=== PATIENT | male | born 1935 | race Asian ===

== ENCOUNTER 2021-07-20 19:08 | Inpatient (IN) | payer MEDICARE, SELFPAY ==
[2021-07-20] VITALS (54 sets, daily range): BP systolic 89–148; BP diastolic 40–79; PULSE 99–189; RESP 17–49; TEMP 36.6–37.8; O2SAT 88–99
--- NOTE | ~2021-07-20 | XR_ITS ---
XR chest 1V portable DATE: 07/25/2021 12:43 INDICATION: Shortness of breath TECHNIQUE: Portable upright AP chest on 07/25/2021 at 1236 hours COMPARISON: 07/20/2021 CT pulmonary scan 07/20/2021 portable AP chest FINDINGS: There is cardiomegaly. Is aortic ectasia and calcification. There are patchy infiltrates in the lower lung zones, left greater than right, increased since 2020. There is minimal if any pleural effusion. No pulmonary vascular congestion or pneumothorax. Diffuse osteopenia. Plate and screws of the lower cervical spine. Degenerative spurring of the thoracic and lumbar spine. IMPRESSION: Bilateral lower lung infiltrates, left greater right, increased since 07/20/2021 Cardiomegaly Reviewed, dictated and finalized at location A. TMETAL PATTERNMAKER IMPRESSION: Bilateral lower lung infiltrates, left greater right, increased sin ce 07/20/2021 Cardiomegaly
--- NOTE | ~2021-07-20 | CT_ITS ---
EXAMINATION: CTA chest PE abdomen pel DATE: 07/20/2021 20:34 INDICATION: Fever and cough. Atrial fibrillation with rapid ventricular rate. TECHNIQUE: Computed tomography angiography (CTA) of the chest was performed with 100 mL Omnipaque-350 intravenous contrast timed to evaluate the pulmonary arteries. Coronal maximum intensity projection 3D-reconstructions were created by the technologist. Computed tomography (CT) of the abdomen and pelv is was performed with intravenous contrast. Automated exposure control and iterative reconstruction t echnique were employed. The dose-length product was 621.90 mGy-cm. COMPARISON: None. FINDINGS: CTA chest: Motion artifact is noted. There are patchy groundglass opacities and centrilobular nodules in all lobes predominantly in the mid and lower lung zones. There is no pleural effusion. Cardiomega ly is noted. There is no pulmonary embolus. There are bridging endplate osteophytes at multiple level s in the spine, consistent with diffuse idiopathic skeletal hyperostosis (DISH). CT abdomen and pelvis: The liver, gallbladder, spleen, pancreas, adrenal glands, and kidneys are norm al. The bladder is decompressed by a Lizama catheter. There is a gastrostomy tube in expected position . There are no dilated loops of bowel. The appendix is not visualized. There is a filter in the infra renal inferior vena cava. There are no pathologically enlarged lymph nodes. There is no free intraper itoneal fluid. There is moderate lumbar spondylosis. IMPRESSION: 1. No pulmonary embolus. Sensitivity is moderately decreased by motion artifact. 2. Patchy groundglass opacities and centrilobular nodules in all lobes predominantly involving the mi d and lower lung zones, consistent with pneumonia. Reviewed, dictated and finalized at location A. IC RELATIONS DIRECTOR IMPRESSION: 1. No pulmonary embolus. Sensitivity is moderately decreased by motion artifact . 2. Patchy groundglass opacities and centrilobular nodules in all lobes predomin antly involving the mid and lower lung zones, consistent with pneumonia.
--- NOTE | ~2021-07-20 | CT_ITS ---
EXAMINATION: CT brain wo con DATE: 07/20/2021 20:34 INDICATION: Confusion. TECHNIQUE: Computed tomography (CT) of the head was performed without intravenous contrast. The mA wa s adjusted according to patient size. Iterative reconstruction technique was employed. The dose-lengt h product was 681.00 mGy-cm. COMPARISON: Head CT 01/03/2005, brain MRI 01/05/2005 FINDINGS: There is diffuse brain volume loss. There is an old infarct in left occipital lobe. There a re scattered areas of low attenuation in the cerebral white matter. There is no intracranial hemorrha ge, acute infarction, or abnormal intracranial mass lesion. Cavum septum pellucidum and vergae are no meño. The orbits are normal. There is mucosal thickening in the paranasal sinuses. There is an old blo wout fracture of medial wall of left orbit. There are old fractures of the anterior munoz of the maxi llary sinuses with reconstruction plates. The mastoid air cells are normal. IMPRESSION: 1. Old infarct in left occipital lobe. 2. Mild nonspecific cerebral white matter disease, which likely represents chronic small vessel ische amanda disease. Reviewed, dictated and finalized at location A. ECTOR SUBASSEMBLIES IMPRESSION: 1. Old infarct in left occipital lobe. 2. Mild nonspecific cerebral white matter disease, which likely represents machine setup operator kashif small vessel ischemic disease.
--- NOTE | ~2021-07-20 | XR_ITS ---
EXAMINATION: XR chest 1V portable DATE: 07/20/2021 19:57 INDICATION: Cough and fever. TECHNIQUE: A single frontal view of the chest was obtained. COMPARISON: Chest 2 views 01/04/2005 FINDINGS: The patient is rotated to his left. A skin fold overlies left chest. There is no pneumonia, pleural effusion, or pneumothorax. The heart size is normal. There are changes of anterior fusion pr ocedure in cervical spine. IMPRESSION: 1. No acute cardiopulmonary disease. Reviewed, dictated and finalized at location A. CATION CARE MANAGER
--- NOTE | ~2021-07-20 | XR_ITS ---
EXAMINATION: XR abdomen/kub 1V DATE: 07/20/2021 19:56 INDICATION: Aspiration. TECHNIQUE: An upright view of the abdomen was obtained. COMPARISON: None. FINDINGS: The pelvis is excluded. There are no dilated loops of bowel. There is a filter in the infer ior vena cava. A gastrostomy tube is seen in expected position. IMPRESSION: 1. Normal bowel gas pattern. Reviewed, dictated and finalized at location A. ATIONS SUPPORT ANALYST
--- NOTE | 2021-07-20 19:18 | ECG_ITS ---
Measurements Intervals [place] Rate: 175 P: [place]: 0 QRS: 103 QRSD: 110 T: -13 QT: 206 QTc: 352 Interpretive Statements ATRIAL FIBRILLATION WITH RAPID VENTRICULAR RESPONSE RIGHT AXIS DEVIATION INCOMPLETE RIGHT BUNDLE BRANCH BLOCK BORDERLINE ST-T WAVE ABNORMALITY- INFERIOR LEADS CANNOT RULE OUT SEPTAL INFARCT, AGE INDETERMINATE ABNORMAL ECG Electronically Signed On 07-21-2021 8:45:30 GATHERING MACHINE SETTER by Bossman Bhatia D.O.
--- NOTE | 2021-07-20 19:31 | PC.NURSE ---
Patient placed on 2L via NC per [facility] Nisha. Patient O2 sat decreased to 87%.
[2021-07-20] MEDS: dilTIAZem HCl INJ 25 MG/5 ML VIAL 10 MG IV PUSH ×2 (19:36→20:46)
[2021-07-20] MEDS: SODIUM CHLORIDE 0.9% IV 1,000 ML 999 ML IV CONT ×2 (19:36→22:37)
[2021-07-20 19:45] LABS: Hematocrit 40.2 % (42.0-52.0); Hemoglobin 12.3 g/dL (14.0-18.0); Mean Corpuscular HGB Conc 30.6 g/dl (32-36); Mean Corpuscular Hemoglobin 27.5 pg (26-34); Mean Corpuscular Volume 89.9 fl (80-100); Platelet Count Result 566 k/mm3 (150-375); Red Blood Count 4.47 M/mm3 (4.6-6.20); Red Cell Distribution Width 18.3 % (11.5-14.5); White Blood Count 27.8 K/mm3 (4.5-10.0)
--- NOTE | 2021-07-20 19:49 | ED.FEVER ---
HPI - Fever General Chief Complaint: Fever Stated Complaint: bedridden,fever, cough, n/v, suctioning, cp Time Seen by Provider: 07/20/21 19:11 Source: family and EMS Mode of arrival: EMS Limitations: clinical condition History of Present Illness HPI Narrative: Patient brought in by EMS with concerns of aspiration. Initial report provided to me by EMS was that patient was at home and had a temp of 100F. Pt exhibited coughing during feeding and family was concerned pt aspirated. They contacted EMS who brought pt here for further evaluation. Shortly after my initial assessment, daughter arrived here in the department and help provide me with majority of history. Apparently patient fell when ambulating in a mall back in November of this year. He landed on his face and sustained several facial fractures and cervical spinal fractures. He was admitted at [facility] had a cervical spinal fusion of C5-6. Postoperatively he developed C. difficile multiple times and also had aspiration pneumonia. Patient was in and out of the hospital multiple times with majority of his admissions at [facility]. 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 At one point he was discharged to a SNF. Pt had tracheostomy placed and G-tube. During most recent admission, there were challenges with placement at time of discharge. Family elected to bring patient home. He has been living at home with his and daughter since last Wednesday. Daughter states that since his arrival back home he has been acting funny . He is fluent in Korean but has been mumbling in Croatian, and both daughter and his have had problems understanding him. Today family was attempting to administer a feeding through his G tube when he began vomiting what appeared to be formula from his tube feeding. Daughter states feedings are ordered to be administer five times per day with volume of 250ml per feeding. He also receives a volume of 125ml of water with his feeding. He currently has a daly. Daughter states pt was admitted at one point with a urinary tract infection that was thought to have been related to Daly catheter. He was switched to a condom cath and then it was determined that he may have some type of obstructive urinary process. He has a known history of atrial fibrillation and is anticoagulated with eliquis. Family has been administering this and metoprolol for rate control through his G tube. Daughter states that pt did have solid bowel movement this morning. Related Data Home Medications Medication Instructions Recorded Confirmed bimatoprost 0.01 % eye drops 1 drop EACH EYE DAILY 08/24/19 08/26/20 niacin 500 mg tablet,extended 500 mg PO QAM 08/24/19 08/26/20 release timolol maleate 0.25 % eye drops 1 drop EACH EYE Q12H 08/24/19 08/26/20 apixaban [Eliquis] mg 07/20/21 duloxetine mg PO 07/20/21 finasteride mg 07/20/21 gabapentin 07/20/21 latanoprost drp 07/20/21 metoprolol tartrate 07/20/21 morphine 07/20/21 trazodone 07/20/21 Allergies Allergy/AdvReac Type Severity Reaction Status Date / Time simvastatin Allergy Mild Itching Verified 07/20/21 19:19 Review of Systems Review of Systems: ROS unobtainable: Yes unobtainable due to mental status PMFSH Past Medical History Medical History (Updated 07/20/21 @ 22:05 by JOAN Radford, ) Aspiration pneumonia Atrial fibrillation Cervical spine fracture CVA (cerebral vascular accident) Neuropathic pain Urinary obstruction Surgical History Surgical History S/P cervical spinal fusion Family History Family History Sibling Patient's brother is in good health Father Family history of liver disease, Onset Age: 52 Patient's father is Mother Family history of liver disease, Onset Age: 67 Patient's mother is decea
[2021-07-20 19:55] LABS: Prothrombin Time 13.2 Seconds (11.1-14.7)
[2021-07-20 19:56] LABS: Partial Thromboplastin Time 33.6 SECONDS (22.3-36.8)
[2021-07-20 20:02] LABS: Band Neutrophils Percent 3 % (0-6); Eosinophils Absolute Manual 0.27 K/mm3 (0.02-0.5); Eosinophils Percent Manual 1 % (0-4); Lymphocytes Absolute Manual 2.78 K/mm3 (1.1-4.5); Monocytes Absolute Manual 1.11 K/mm3 (0.1-0.90); Monocytes Percent Manual 4 % (3-9); Neutrophils Absolute Manual 23.63 K/mm3 (1.3-6.7); Neutrophils Percent Manual 82 % (46-73); Platelet Estimate Increased (Adequate); Total Cells Counted 100
[2021-07-20 20:03] LABS: Stomatocytes 2+ (NORMAL)
[2021-07-20 20:05] LABS: Alanine Aminotransferase 26 U/L (4-50); Albumin Level 4.7 g/dL (3.5-5.1); Alkaline Phosphatase 130 U/L (38-126); Anion Gap 16 mmol/L (8-16); Aspartate Amino Transferase 35 U/L (17-59); Bilirubin,Total 0.5 mg/dL (0.2-1.3); Blood Urea Nitrogen 30 mg/dL (9-20); Calcium 10.4 mg/dL (8.4-10.2); Carbon Dioxide 25 mmol/L (22-30); Chloride 96 mmol/L (98-107); Estimated Glomerular Filt Rate > 60; Glucose 150 mg/dL (65-110); Potassium 5.3 mmol/L (3.4-5.0); Sodium 137 mmol/L (137-145)
[2021-07-20 20:16] LABS: NT Pro B Type Natriuretic Pept 1260 pg/mL (5-100); Troponin I < 0.012 ng/mL (0.000-0.034)
[2021-07-20 20:17] LABS: Lactic Acid Reflex 4.6 mmol/L (0.7-2.1)
--- NOTE | 2021-07-20 20:30 | PC.NURSE ---
Patient in Ct at this time.
--- NOTE | 2021-07-20 21:47 | PM.IMHP ---
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 patient has been in and out of the hospital since January of 2021 has had a protracted postop course complicated by nosocomial infection, respiratory failure, patient is status post tracheostomy now decannulated with tracheostomy been closed up, recurrent C difficile colitis, patient did was just discharged from [place] when home Wednesday family had trouble placing him at a senior living due to the multiple challenges with his health resulting to taking home with them daily have been doing okay but today just prior to coming to the emergency patient was shivering, incoherent, and vomited his G-tube feeding which prompted the family to call EMS and patient was brought to the emergency room. Preliminary workup was significant for lung infiltrates, a lactic acid of 4,6, also was found to have AFib with rapid ventricular response, WBC of 26,000. Most of the history was obtained from daughter who is at bedside. Review of Systems Review of Systems: ROS unobtainable: Yes unobtainable due to mental status (Delirious.) [facility] Past Medical History Medical History (Updated 07/21/21 @ 04:10 by Quan Harrell MD) Aspiration pneumonia Atrial fibrillation Cervical spine fracture CVA (cerebral vascular accident) Neuropathic pain Urinary obstruction Surgical History Surgical History S/P cervical spinal fusion Family History Family History Sibling Patient's brother is in good health Father Family history of liver disease, Onset Age: 52 Patient's father is Mother Family history of liver disease, Onset Age: 67 Patient's mother is Social History Social History (Updated 07/20/21 @ 19:51 by JOAN Radford, ) Smoking status: Former smoker Tobacco type: cigarettes and pipe Alcohol intake: never Substance use: never Living arrangements: with family Gender identity (if verbalized by the patient): Male Sexual Orientation (if Verbalized by the Patient): Straight or Heterosexual Spiritual care concerns: No Meds Home Medications and Allergies Home Medications Medication Instructions Recorded Confirmed Type timolol maleate 0.25 % eye drops 1 drop EACH EYE Q12H 08/24/19 07/21/21 History apixaban [Eliquis] 2.5 mg FEEDING TUBE Q12H 07/20/21 07/21/21 History duloxetine 20 mg PO DAILY 07/20/21 07/21/21 History finasteride 5 mg FEEDING TUBE DAILY 07/20/21 07/21/21 History gabapentin 100 mg FEEDING TUBE TID 07/20/21 07/21/21 History latanoprost 1 drp EACH EYE HS 07/20/21 07/21/21 History metoprolol tartrate 25 mg FEEDING TUBE Q12H 07/20/21 07/21/21 History morphine 1 mg PO QPM 07/20/21 07/21/21 History trazodone 50 mg FEEDING TUBE HS 07/20/21 07/21/21 History acetaminophen 650 mg PO Q8H 07/21/21 07/21/21 History collagenase clostridium histo. See Rx Instructions .ROUTE .COMPLEX 07/21/21 07/21/21 History [Santyl] fidaxomicin [Dificid] 200 mg FEEDING TUBE EVERY OTHER DAY 07/21/21 07/21/21 History insulin aspart U-100 [Novolog 4 unit SUBCUT DIRECTED 07/21/21 07/21/21 History Flexpen U-100 Insulin] insulin aspart U-100 [Novolog See Protocol SUBCUT TIDWMEAL 07/21/21 07/21/21 History Flexpen U-100 Insulin] Allergies Allergy/AdvReac Type Severity Reaction Status Date / Time simvastatin Allergy Mild Itching Verified 07/20/21 19:19 Vital Signs Vital Signs - 24 hr 07/20/21 19:10 07/20/21 19:17 07/20/21 19:18 Temperature 100.1 F H Pulse Rate 188 H 177 H Respiratory Rate 40 H 40 H Blood Pressure 129/68 Pulse Oximetry 92 91 07/20/21 19:30 07/20/21 19:36 07/20/21 19:37 Temperature Pulse
[2021-07-20] MEDS: SODIUM CHLORIDE 0.9% IV 1,000 ML 125 ML IV CONT (22:22)
[2021-07-20 22:42] LABS: Reflex Lactic Acid Yes or No Add Lactic
[2021-07-20 23:06] LABS: Troponin I 0.059 ng/mL (0.000-0.034)
[2021-07-21] VITALS (33 sets, daily range): BP systolic 96–131; BP diastolic 44–69; PULSE 75–155; RESP 16–26; TEMP 36.1–38.2; O2SAT 93–100; BMI 18.7
[2021-07-21] LABS: Lactic Acid 2.7 mmol/L (0.7-2.1)
[2021-07-21] MEDS: ENOXAPARIN 60 MG/0.6 ML SYRINGE SUB-Q ×2 (04:21→17:25)
[2021-07-21] MEDS: IPRATROPIUM BR 0.02% INH SOLN 0.5 MG/2.5 ML VIAL INHALATION ×5 (04:37→20:34)
[2021-07-21] MEDS: ALBUTEROL SULFATE NEB 2.5 MG/0.5 ML INH INHALATION ×5 (04:37→20:34)
[2021-07-21 05:51] LABS: Hematocrit 26.6 % (42.0-52.0); Hemoglobin 8.3 g/dL (14.0-18.0); Mean Corpuscular HGB Conc 31.2 g/dl (32-36); Mean Corpuscular Hemoglobin 27.3 pg (26-34); Mean Corpuscular Volume 87.5 fl (80-100); Mean Platelet Volume 9.3 fl (7.4-10.4); Platelet Count Result 433 k/mm3 (150-375); Red Blood Count 3.04 M/mm3 (4.6-6.20); White Blood Count 27.9 K/mm3 (4.5-10.0)
[2021-07-21] MEDS: FIDAXOMICIN 200 MG TABLET PO ×2 (05:58→17:26)
[2021-07-21] MEDS: ACETAMINOPHEN ELIXIR 325 MG/10.15 ML UDC 650 MG FEED TUBE ×3 (05:58→22:07)
[2021-07-21] MEDS: SODIUM CHLORIDE 0.9% IV 1,000 ML 65 ML IV CONT ×2 (05:58→22:10)
[2021-07-21 06:01] LABS: Anion Gap 9 mmol/L (8-16); Blood Urea Nitrogen 25 mg/dL (9-20); Calcium 8.4 mg/dL (8.4-10.2); Carbon Dioxide 22 mmol/L (22-30); Chloride 104 mmol/L (98-107); Estimated CRCL calculation 57 ml/min; Estimated Glomerular Filt Rate > 60; Glucose 175 mg/dL (65-110); Magnesium 2.1 mg/dL (1.6-2.3); Potassium 4.2 mmol/L (3.4-5.0); Sodium 135 mmol/L (137-145)
[2021-07-21 06:07] LABS: Glucose Point of Care 167 mg/dl (65-105)
[2021-07-21 06:58] LABS: Add Urine Microscopic? YES; Appearance Urine Clear (Clear); Bilirubin Urine Negative (Negative); Blood Urine Negative (Negative); Color Urine Yellow (Yellow); Glucose Urine UA Negative (Negative); Ketones Urine Negative (Negative); Leukocyte Esterase Ur Negative LEU/UL (Negative); Mucus Urine Rare /lpf; Nitrate Urine Negative (Negative); Protein Urine 1+ mg/dL (Negative); Urobilinogen Urine Negative mg/dL (<2.0); WBC Urine 0-3 /hpf
[2021-07-21 07:01] LABS: Specific Grav Ur 1.048 (1.001-1.035)
[2021-07-21 08:07] LABS: Atypical Lymphocytes Present; Band Neutrophils Percent 12 % (0-6); Lymphocytes Absolute Manual 2.79 K/mm3 (1.1-4.5); Neutrophils Absolute Manual 25.11 K/mm3 (1.3-6.7); Neutrophils Percent Manual 78 % (46-73); Platelet Estimate Increased (Adequate); Stomatocytes 1+ (NORMAL); Total Cells Counted 100
[2021-07-21 08:08] LABS: Anisocytosis 1+ (NORMAL); Hypochromasia 1+ (NORMAL)
[2021-07-21 09:08] LABS: Hematocrit 26.7 % (42.0-52.0); Hemoglobin 8.1 g/dL (14.0-18.0)
[2021-07-21] MEDS: DULoxetine HCL 20 MG CAPSULE.DR PO (09:08)
[2021-07-21] MEDS: TIMOLOL MALEATE 0.25% OP SOLN 5 ML BOTTLE 1 DROP EACH EYE ×2 (09:08→21:34)
[2021-07-21] MEDS: METOPROLOL TARTRATE 25 MG TABLET FEED TUBE (09:09)
[2021-07-21] MEDS: FINASTERIDE 5 MG TABLET FEED TUBE (09:09)
[2021-07-21 09:23] LABS: Lactic Acid Reflex 2.2 mmol/L (0.7-2.1)
[2021-07-21 09:42] LABS: Troponin I 0.047 ng/mL (0.000-0.034)
[2021-07-21 12:02] LABS: Reflex Lactic Acid Yes or No Add Lactic
[2021-07-21] MEDS: SILVERGEL (ELTA) 45 ML 1 APPLIC TOPICAL (12:36)
[2021-07-21 12:41] LABS: Lactic Acid 1.5 mmol/L (0.7-2.1)
[2021-07-21 13:16] LABS: Glucose Point of Care 138 mg/dl (65-105)
--- NOTE | 2021-07-21 13:43 | PCNSR ---
On 07/21/21, the student, Rosa Ramirez, provided care and completed [facility] documentation on this patient. I have reviewed the student's documentation and agree with the findings.
--- NOTE | 2021-07-21 16:04 | PCSTNOTE ---
Therapist spoke with nurse, Ailyn, concerning completing a Bedside Swallow Evaluation and it was determined this would wait until as soon as able in the morning.
--- NOTE | 2021-07-21 16:07 | PM.IMPN ---
Progress Note: A&P Assessment and Plan (1) Aspiration pneumonia: Qualifiers: Aspiration pneumonia type: unspecified Laterality: unspecified laterality Lung location: unspecified part of lung Qualified Code(s): J69.0 - Pneumonitis due to inhalation of food and vomit Code(s): J69.0 - Pneumonitis due to inhalation of food and vomit Status: Acute Assessment and Plan: Patient was vomiting up his tube feedings and is not very mobile and likely aspirated -he continues to have a cough and last fever was this morning -continue Zosyn and vancomycin (was recently discharged from [facility] 07/16) as well as Dificid. He is at high risk for C diff recurrence -blood cultures are pending, lactic acid has normalized -COVID PCR pending (2) Atrial fibrillation with rapid ventricular response: Code(s): I48.91 - Unspecified atrial fibrillation Status: Acute Assessment and Plan: Acute on chronic. Currently on a diltiazem drip with a rate of 102 but was high overnight at 170 -no cardiology consult placed on admission. Since his heart rate has improved, stop diltiazem and increase nightly metoprolol. I have spoke with the PA who will be here this evening and if he goes back and AFib RVR, will place back on diltiazem and get a Cardiology consult -stroke mildly elevated likely due to AFib RVR. No reports of chest pain -the surgical assist has transition him from Eliquis to Lovenox. -TSH normal (3) Feeding by G-tube: Code(s): Z93.1 - Gastrostomy status Status: Acute Assessment and Plan: Will restart tube feedings tonight with a lower rate -please see nutrition note for details -speech therapy consult -family states that he takes some liquid by mouth but was told he is not ready for oral feedings yet (4) Nausea and vomiting: Code(s): R11.2 - Nausea with vomiting, unspecified Status: Acute Assessment and Plan: No vomiting here -monitor residuals (5) Clostridioides difficile infection: Code(s): A49.8 - Other bacterial infections of unspecified site Status: Acute Assessment and Plan: I believe this is recent, awaiting records from [facility] -continue Dificid -patient had a bowel movement on exam which was loose. No signs of colitis on CT of the abdomen. Will monitor for excessive stools and or abdominal pain (6) Cervical spine fracture: Code(s): S12.9XXA - Fracture of neck, unspecified, initial encounter Status: Acute Assessment and Plan: He had an accident November 2020. Since then he has been bed-bound with a sacral ulcer and requires tube feedings. He is no longer ventilator dependent -STATUS POST FUSION AT C5-C6 (7) DVT (deep venous thrombosis): Code(s): I82.409 - Acute embolism and thrombosis of unspecified deep veins of unspecified lower extremity Status: Acute Assessment and Plan: DVT noted in the EMR by the surgical assist although I am not seeing any evidence of this on imaging -Eliquis has been held. Continue Lovenox -await records from [facility] (8) Elevated troponin I level: Code(s): R77.8 - Other specified abnormalities of plasma proteins Status: Acute Assessment and Plan: Likely due to rapid ventricular response and reaction to current infection -monitor for chest pain (9) Anemia: Code(s): D64.9 - Anemia, unspecified Status: Acute Assessment and Plan: Hemoglobin was 12.3 on admission but dropped 8.3 this morning. Repeat labs show a hemoglobin 8.1 -no signs of bleeding on exam -patient is on Lovenox while here but has been on Eliquis outpatient -will draw anemia labs with morning labs -await records from [facility] Time Spent With Patient Time with patient: 25 - 35 minutes Subjective Date/time seen: 07/21/21 16:08 Interval history: Pt is a 86 y/o male here for suspected pneumonia. Patient was s
[2021-07-21 18:21] LABS: Glucose Point of Care 118 mg/dl (65-105)
[2021-07-21 18:23] LABS: SARS-CoV-2 RNA PCR Negative
[2021-07-21] MEDS: LATANOPROST 0.005% OP SOLN 2.5 ML BTL 1 DROP EACH EYE (21:34)
[2021-07-21] MEDS: METOPROLOL TARTRATE TAB 25 MG, METOPROLOL TARTRATE TAB 12.5 MG 37.5 MG FEED TUBE (21:34)
[2021-07-21] MEDS: traZODone HCL 50 MG TABLET FEED TUBE (21:34)
[2021-07-21 23:08] LABS: Glucose Point of Care 199 mg/dl (65-105)
[2021-07-22] VITALS (31 sets, daily range): BP systolic 98–153; BP diastolic 46–95; PULSE 78–138; RESP 18–22; TEMP 35.9–37.5; O2SAT 95–100
[2021-07-22] MEDS: ALBUTEROL SULFATE NEB 2.5 MG/0.5 ML INH INHALATION ×6 (00:37→20:35)
[2021-07-22] MEDS: IPRATROPIUM BR 0.02% INH SOLN 0.5 MG/2.5 ML VIAL INHALATION ×6 (00:37→20:35)
--- NOTE | 2021-07-22 00:45 | PCRCNOTE ---
pt only did half of the DUONEB treatment stating he does not need these treatments anymore and that he has 'overcome his illness'
--- NOTE | 2021-07-22 04:29 | PCRCNOTE ---
pt is not doing nebulizers all the way through stating he does not want nor need them. breathing treatments are for weaklings -Geraldo Paniagua
[2021-07-22] MEDS: ACETAMINOPHEN ELIXIR 325 MG/10.15 ML UDC 650 MG FEED TUBE ×3 (05:03→20:59)
[2021-07-22] MEDS: FIDAXOMICIN 200 MG TABLET PO ×2 (05:04→17:45)
[2021-07-22] MEDS: ENOXAPARIN 60 MG/0.6 ML SYRINGE SUB-Q (05:04)
[2021-07-22 05:14] LABS: Basophils Absolute Auto 0.1 K/mm3 (0.0-0.1); Basophils Percent Auto 0.3 % (0.2-1.2); Eosinophils Absolute Auto 0.4 K/mm3 (0-0.3); Eosinophils Percent Auto 2.1 % (0-4.4); Hematocrit 24.5 % (42.0-52.0); Hemoglobin 7.5 g/dL (14.0-18.0); Immature Granulocyte Absolute 0.13 K/mm3 (0.00-0.031); Immature Granulocyte Percent A 0.7 % (0-0.5); Lymphocytes Absolute Auto 1.22 K/mm3 (0.9-3.2); Lymphocytes Percent Auto 6.4 % (18.3-44.2); Mean Corpuscular HGB Conc 30.6 g/dl (32-36); Mean Corpuscular Hemoglobin 27.5 pg (26-34); Mean Corpuscular Volume 89.7 fl (80-100); Mean Platelet Volume 9.2 fl (7.4-10.4); Monocytes Percent Auto 5.5 % (2.6-8.5); Neutrophils Absolute Auto 16.1 K/mm3 (1.3-6.7); Platelet Count Result 371 k/mm3 (150-375); Red Blood Count 2.73 M/mm3 (4.6-6.20); Red Cell Distribution Width 17.7 % (11.5-14.5)
[2021-07-22 05:14] LABS: Glucose Point of Care 139 mg/dl (65-105)
[2021-07-22 05:35] LABS: Anion Gap 9 mmol/L (8-16); Blood Urea Nitrogen 22 mg/dL (9-20); Calcium 8.6 mg/dL (8.4-10.2); Carbon Dioxide 21 mmol/L (22-30); Chloride 103 mmol/L (98-107); Estimated CRCL calculation 50 ml/min; Estimated Glomerular Filt Rate > 60; Glucose 152 mg/dL (65-110); Potassium 3.5 mmol/L (3.4-5.0); Sodium 133 mmol/L (137-145)
[2021-07-22 05:38] LABS: Transferrin 173 mg/dL (206-381)
[2021-07-22 05:46] LABS: Iron < 10 ug/dL (49-181)
[2021-07-22 05:51] LABS: CRP 25.9 mg/dL (<1.0)
[2021-07-22 06:03] LABS: Percent Iron Saturation < 4 % (20-50)
[2021-07-22 06:52] LABS: Folic Acid > 20.0 ng/mL (2.76->20); Vitamin B12 > 1000.0 pg/mL (239-931)
[2021-07-22] MEDS: FINASTERIDE 5 MG TABLET FEED TUBE (09:44)
[2021-07-22] MEDS: METOPROLOL TARTRATE TAB 25 MG, METOPROLOL TARTRATE TAB 12.5 MG 37.5 MG FEED TUBE (09:44)
[2021-07-22] MEDS: TIMOLOL MALEATE 0.25% OP SOLN 5 ML BOTTLE 1 DROP EACH EYE ×2 (09:45→20:58)
[2021-07-22] MEDS: DULoxetine HCL 20 MG CAPSULE.DR PO (10:04)
--- NOTE | 2021-07-22 10:07 | PCSTNOTE ---
Please refer to the Bedside Swallow Evaluation in the EMR. Please note, silent aspiration cannot be ruled out at bedside.
--- NOTE | 2021-07-22 11:47 | PCNFU ---
Nutrition Follow-Up Complete: Altered GI function related to g tube as evidenced by nausea, vomiting and aspiration. Goal: Patient to meet estimated nutritional needs. Patient is progressing towards goal. We will continue current goal. Pt current nutrition is Jevity 1.2 at 40 ml/hr advancing to goal rate of 65 ml/hr over 22 hours. Last recorded weight is 59.3 kg, no new weight to report. Bowel Motility:+BM reported 07/21 Labs Reviewed:Glu 152,BUN 22, Na 133, Hct 24.5,Hgb 7.5 Meds Noted:Zosyn, Vancomycin, Metoprolol, Atrovent, Proscar, Albuterol, Cymbalta, Lovenox, Cymbalta, NS. Skin: stage IV on sacrum. Additional Notes: Nutrition follow up. Patient started on tube feedings 07/21. Currently at 40 ml/hr with plans to advancing to goal rate of 65 ml/hr of Jevity 1.2, providing 1716 kcals/79 gms protein/1087 ml water. Free water flush 30 ml q 4 hours. Bedside Swallow performed today recommending non oral feedings. Monitoring: patients medications, labs, weight and oral intake every Wednesday and Wednesday.
[2021-07-22 13:03] LABS: Glucose Point of Care 167 mg/dl (65-105)
[2021-07-22] MEDS: SILVERGEL (ELTA) 45 ML 1 APPLIC TOPICAL (13:53)
--- NOTE | 2021-07-22 14:28 | PM.CNCAR ---
Assessment and Plan Assessment and plan (1) Elevated troponin I level: Code(s): R77.8 - Other specified abnormalities of plasma proteins Status: Acute Assessment and Plan: This is likely from demand ischemia from marked/severe tachycardia resulting in a supply/demand mismatch. Not from acute plaque rupture (2) Anemia: Code(s): D64.9 - Anemia, unspecified Status: Acute Assessment and Plan: Worsening. Appears to be iron deficient. Workup per hospitalist. Will at least temporarily hold his Eliquis though given his dropping hematocrit (3) Aspiration pneumonia: Qualifiers: Aspiration pneumonia type: unspecified Laterality: unspecified laterality Lung location: unspecified part of lung Qualified Code(s): J69.0 - Pneumonitis due to inhalation of food and vomit Code(s): J69.0 - Pneumonitis due to inhalation of food and vomit Status: Acute Assessment and Plan: On antibiotics (4) 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 - Pressure ulcer of sacral region, unspecified stage Status: Acute Assessment and Plan: Will consult Wound Care (5) Atrial fibrillation: Code(s): I48.91 - Unspecified atrial fibrillation Status: Acute Assessment and Plan: Atrial fibrillation rapid ventricular response. He has longstanding history of chronic atrial fibrillation. Will hold his Eliquis for now given his worsening anemia. Will increase his diltiazem drip up to 10 milligrams/hour. He was also previously on metoprolol will give him a low dose of metoprolol 12.5 mg p.o. b.i.d. his he may be going to beta-kaley withdrawal also. 2D echocardiogram Doppler will be ordered and reviewed. His atrial fibrillation is likely worsened by his underlying infectious state. History of Present Illness History of Present Illness Consult date/time: 07/22/21 14:28 Requesting physician: Shon Patrick MD Consult reason: atrial fibrillation Reason For Visit: A FIB RVR, Aspiration Pneumonia Narrative: Date of service: 07/22/2021 Reason consultation: Atrial fibrillation with rapid ventricular response Requesting provider: Dr. Patrick History: Patient is an 86-year-old male who has a history of atrial fibrillation and had previously been on anticoagulation with warfarin. He has chronic AFib and had been seen by Dr. cooney dating back to 2015. He also has mitral regurgitation. He has unfortunately several significant issues happened to him over the past 6-12 months. He fell and had trauma to his face and cervical spine resulting in paralysis. He is status post tracheostomy now decannulated. He had recurrent C diff colitis and was recently discharged from [facility]. He ended up being discharged to home due to difficulties with placement. He came to the hospital because of altered mental status, infiltrates, and is also found to be in atrial fibrillation with rapid ventricular response. He was started on diltiazem drip. He is being treated for aspiration pneumonia. White count is quite elevated 26,000. Currently denies any chest pain, shortness of breath, syncope, presyncope, paroxysmal nocturnal dyspnea. Does have some lower extremity swelling which is relatively new Review of Systems Review of Systems: All systems reviewed & are unremarkable except as noted in HPI and below Constitutional: Constitutional: Reports weakness Eyes: Eyes: Denies blurry vision ENT: Reports Normal hearing present Cardiovascular: Cardiovascular: Denies chest pain, Reports pedal edema and Reports palpitations Respiratory: Respiratory: Denies dyspnea Gastrointestinal: Gastrointestinal: Denies abdominal pain Genitourinary: Genitourinary: Denies dysuria Musculoskeletal: Musculoskeletal: Denies back pain and Denies arthralgias Integumentary/Breasts: Skin/Breast: Reports dry skin Neurologic: Denies headache(s) Comments: Paraplegia Psychiatric: Psychiatric: Denies an
[2021-07-22] MEDS: SODIUM CHLORIDE 0.9% IV 1,000 ML 65 ML IV CONT (14:41)
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
[2021-07-22 17:08] LABS: IFOB Positive Control Positive; Immunochemical Fecal Occult Bl Positive (N)
[2021-07-22 18:16] LABS: Glucose Point of Care 196 mg/dl (65-105)
[2021-07-22 19:07] LABS: Glucose Point of Care 190 mg/dl (65-105)
[2021-07-22] MEDS: METOPROLOL TARTRATE 25 MG TABLET FEED TUBE (20:57)
[2021-07-22] MEDS: traZODone HCL 50 MG TABLET FEED TUBE (20:58)
[2021-07-22] MEDS: LATANOPROST 0.005% OP SOLN 2.5 ML BTL 1 DROP EACH EYE (20:58)
[2021-07-22 23:42] LABS: Glucose Point of Care 242 mg/dl (65-105)
[2021-07-23] VITALS (28 sets, daily range): BP systolic 115–148; BP diastolic 51–79; PULSE 90–126; RESP 20–24; TEMP 36.4–38.1; O2SAT 92–98
--- NOTE | 2021-07-23 | ECHO_ITS ---
Patient Info Name: Geraldo Paniagua Age: 86 years : 1935 Gender: Male Ht: 70 in Wt: 130 lbs BSA: 1.69 m2 HR: 106 bpm BP: 129 / 71 mmHg Heart Rhythm: Atrial Fibrillation Exam Date: 07/23/2021 8:14 AM Exam Location: [facility] Patient Status: Inpatient Admit Date: 07/20/2021 Staff Ordering Physician: Froylan Schultz MD [employer] Operator: Travis Kaur RDCS, RT Attending Provider: Mamta Eduardo PA-C Referring Physician: Antoine SPRINGER; Exam Type: CA echo doppler color flow Study Info Indications I48.1 - Persistent atrial fibrillation Complete two-dimensional, color flow and Doppler transthoracic echocardiogram is performed. Summary 1. Complete two-dimensional, color flow and Doppler transthoracic echocardiogram is performed. 2. Left ventricular chamber dimension is mildly enlarged. 3. Left ventricular systolic function is normal, estimated at 60-65%. 4. There is no increased left ventricular wall thickness. 5. The left ventricular diastolic function is indeterminate. 6. Left atrial chamber dimension is severely enlarged. 7. Right atrial chamber dimension is severely enlarged. 8. There is mild mitral valve regurgitation. 9. There is mild tricuspid valve regurgitation. 10. Moderate pulmonary hypertension, estimated pulmonary arterial systolic pressure is 47 mmHg. Left Ventricle Left ventricular chamber dimension is mildly enlarged. Left ventricular systolic function is normal, estimated at 60-65%. There is no increased left ventricular wall thickness. The left ventricular diastolic function is indeterminate. Right Ventricle Right ventricular chamber dimension is normal. Right ventricular systolic function is normal. Left Atria Left atrial chamber dimension is severely enlarged. Right Atria Right atrial chamber dimension is severely enlarged. Atrial Septum Intact interatrial septum visualized by color flow imaging. Aortic Valve The aortic valve is trileaflet. There is moderate aortic valve sclerosis. There is no aortic valve stenosis. There is trace aortic valve regurgitation. Pulmonic Valve The pulmonic valve is normal. There is no pulmonic valve stenosis. There is trace pulmonic regurgitation. Mitral Valve The mitral valve has calcified annulus. There is no mitral valve stenosis. There is mild mitral valve regurgitation. Tricuspid Valve The tricuspid valve leaflets are normal. There is no significant tricuspid valve stenosis. There is mild tricuspid valve regurgitation. Moderate pulmonary hypertension, estimated pulmonary arterial systolic pressure is 47 mmHg. Pericardium/Pleural The pericardium appears normal. There is no pericardial effusion. Inferior Vena Cava Dilated inferior vena cava with <50% collapse upon inspiration consistent with elevated right atrial pressure, 10 mmHg. Aorta The aortic root size at the sinus of Valsalva is normal. Left Ventricular Outflow Tract Name Value Normal LVOT 2D LVOT Diameter 1.9 cm LVOT Doppler LVOT Peak Gradient 3 mmHg LVOT Mean Gradient 2 mmHg
[2021-07-23] MEDS: INSULIN ASPART (*BKC) 100 UNITS/ML SUB-Q ×3 (00:13→23:04)
[2021-07-23] MEDS: ALBUTEROL SULFATE NEB 2.5 MG/0.5 ML INH INHALATION ×5 (00:20→21:13)
[2021-07-23] MEDS: IPRATROPIUM BR 0.02% INH SOLN 0.5 MG/2.5 ML VIAL INHALATION ×6 (00:20→23:59)
[2021-07-23 05:09] LABS: Basophils Absolute Auto 0.1 K/mm3 (0.0-0.1); Basophils Percent Auto 0.4 % (0.2-1.2); Eosinophils Absolute Auto 0.4 K/mm3 (0-0.3); Hematocrit 24.3 % (42.0-52.0); Hemoglobin 7.4 g/dL (14.0-18.0); Immature Granulocyte Absolute 0.08 K/mm3 (0.00-0.031); Immature Granulocyte Percent A 0.6 % (0-0.5); Lymphocytes Absolute Auto 1.16 K/mm3 (0.9-3.2); Lymphocytes Percent Auto 8.8 % (18.3-44.2); Mean Corpuscular HGB Conc 30.5 g/dl (32-36); Mean Corpuscular Volume 88.7 fl (80-100); Mean Platelet Volume 9.2 fl (7.4-10.4); Monocytes Absolute Auto 0.9 K/mm3 (0.1-0.6); Monocytes Percent Auto 6.8 % (2.6-8.5); Neutrophils Absolute Auto 10.6 K/mm3 (1.3-6.7); Neutrophils Percent Auto 80.4 % (45.5-73.1); Platelet Count Result 343 k/mm3 (150-375); Red Blood Count 2.74 M/mm3 (4.6-6.20); Red Cell Distribution Width 17.8 % (11.5-14.5); White Blood Count 13.2 K/mm3 (4.5-10.0)
[2021-07-23 05:26] LABS: Alanine Aminotransferase 15 U/L (4-50); Albumin Level 2.8 g/dL (3.5-5.1); Alkaline Phosphatase 68 U/L (38-126); Anion Gap 8 mmol/L (8-16); Aspartate Amino Transferase 23 U/L (17-59); Bilirubin,Total 0.1 mg/dL (0.2-1.3); Blood Urea Nitrogen 18 mg/dL (9-20); Calcium 8.1 mg/dL (8.4-10.2); Carbon Dioxide 22 mmol/L (22-30); Chloride 106 mmol/L (98-107); Estimated CRCL calculation 58 ml/min; Estimated Glomerular Filt Rate > 60; Glucose 154 mg/dL (65-110); Potassium 3.3 mmol/L (3.4-5.0); Sodium 136 mmol/L (137-145)
[2021-07-23] MEDS: ACETAMINOPHEN ELIXIR 325 MG/10.15 ML UDC 650 MG FEED TUBE ×3 (06:30→21:00)
[2021-07-23] MEDS: FIDAXOMICIN 200 MG TABLET PO ×2 (06:31→17:13)
[2021-07-23] MEDS: SODIUM CHLORIDE 0.9% IV 1,000 ML 65 ML IV CONT (06:40)
[2021-07-23] MEDS: SILVERGEL (ELTA) 45 ML 1 APPLIC TOPICAL (06:50)
[2021-07-23] MEDS: FINASTERIDE 5 MG TABLET FEED TUBE (10:36)
[2021-07-23] MEDS: DULoxetine HCL 20 MG CAPSULE.DR PO (10:36)
[2021-07-23] MEDS: METOPROLOL TARTRATE 25 MG TABLET FEED TUBE (10:37)
[2021-07-23] MEDS: TIMOLOL MALEATE 0.25% OP SOLN 5 ML BOTTLE 1 DROP EACH EYE ×2 (10:37→20:51)
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
[2021-07-23 12:19] LABS: Glucose Point of Care 149 mg/dl (65-105)
--- NOTE | 2021-07-23 13:03 | PHAR ---
BOTTLE FROM [facility] BR[facility]GHT FROM HOME RX [id number] STATES CONTAINS GABAPETIN 250MG/5ML
[2021-07-23 16:56] LABS: Glucose Point of Care 221 mg/dl (65-105)
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
[2021-07-23] MEDS: METOPROLOL TARTRATE 50 MG TAB FEED TUBE (20:50)
[2021-07-23] MEDS: LATANOPROST 0.005% OP SOLN 2.5 ML BTL 1 DROP EACH EYE (20:51)
[2021-07-23] MEDS: traZODone HCL 50 MG TABLET FEED TUBE (20:51)
[2021-07-23 21:21] LABS: Glucose Point of Care 162 mg/dl (65-105)
[2021-07-23 23:10] LABS: Glucose Point of Care 213 mg/dl (65-105)
[2021-07-24] VITALS (22 sets, daily range): BP systolic 113–155; BP diastolic 59–88; PULSE 87–148; RESP 16–22; TEMP 36.4–37.8; O2SAT 93–99
[2021-07-24] MEDS: IPRATROPIUM BR 0.02% INH SOLN 0.5 MG/2.5 ML VIAL INHALATION (04:52)
[2021-07-24] MEDS: ALBUTEROL SULFATE NEB 2.5 MG/0.5 ML INH INHALATION ×2 (04:52)
[2021-07-24 04:56] LABS: Basophils Absolute Auto 0.1 K/mm3 (0.0-0.1); Basophils Percent Auto 0.4 % (0.2-1.2); Eosinophils Absolute Auto 0.5 K/mm3 (0-0.3); Eosinophils Percent Auto 3.9 % (0-4.4); Hematocrit 26.8 % (42.0-52.0); Hemoglobin 8.3 g/dL (14.0-18.0); Immature Granulocyte Absolute 0.12 K/mm3 (0.00-0.031); Lymphocytes Absolute Auto 1.21 K/mm3 (0.9-3.2); Lymphocytes Percent Auto 10.5 % (18.3-44.2); Mean Corpuscular Hemoglobin 27.5 pg (26-34); Mean Corpuscular Volume 88.7 fl (80-100); Mean Platelet Volume 9.2 fl (7.4-10.4); Monocytes Absolute Auto 0.9 K/mm3 (0.1-0.6); Monocytes Percent Auto 7.6 % (2.6-8.5); Neutrophils Absolute Auto 8.9 K/mm3 (1.3-6.7); Neutrophils Percent Auto 76.6 % (45.5-73.1); Platelet Count Result 364 k/mm3 (150-375); Red Blood Count 3.02 M/mm3 (4.6-6.20); Red Cell Distribution Width 17.6 % (11.5-14.5); White Blood Count 11.6 K/mm3 (4.5-10.0)
[2021-07-24 05:09] LABS: Anion Gap 7 mmol/L (8-16); Blood Urea Nitrogen 16 mg/dL (9-20); Calcium 8.8 mg/dL (8.4-10.2); Carbon Dioxide 25 mmol/L (22-30); Chloride 107 mmol/L (98-107); Estimated CRCL calculation 62 ml/min; Estimated Glomerular Filt Rate > 60; Glucose 153 mg/dL (65-110); Potassium 4.1 mmol/L (3.4-5.0); Sodium 139 mmol/L (137-145)
[2021-07-24] MEDS: ACETAMINOPHEN ELIXIR 325 MG/10.15 ML UDC 650 MG FEED TUBE ×3 (05:40→22:03)
[2021-07-24] MEDS: FIDAXOMICIN 200 MG TABLET PO ×2 (05:40→17:54)
[2021-07-24] MEDS: DULoxetine HCL 20 MG CAPSULE.DR PO (08:06)
[2021-07-24] MEDS: FINASTERIDE 5 MG TABLET FEED TUBE (08:06)
[2021-07-24] MEDS: METOPROLOL TARTRATE 50 MG TAB FEED TUBE (08:06)
[2021-07-24] MEDS: SILVERGEL (ELTA) 45 ML 1 APPLIC TOPICAL (08:07)
[2021-07-24] MEDS: TIMOLOL MALEATE 0.25% OP SOLN 5 ML BOTTLE 1 DROP EACH EYE ×2 (08:07→21:51)
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
[2021-07-24 12:18] LABS: Glucose Point of Care 165 mg/dl (65-105)
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
--- NOTE | 2021-07-24 14:42 | PC.NURSE ---
On 07/24/21, the student, [Cathy Murrell], provided care and completed [facility] documentation on this patient. I have reviewed the student's documentation and agree with the findings.
[2021-07-24 18:21] LABS: Glucose Point of Care 174 mg/dl (65-105)
[2021-07-24] MEDS: LATANOPROST 0.005% OP SOLN 2.5 ML BTL 1 DROP EACH EYE (21:50)
[2021-07-24] MEDS: METOPROLOL TARTRATE 25 MG TABLET 75 MG FEED TUBE (21:52)
[2021-07-24] MEDS: APIXABAN 2.5 MG TABLET PO (21:52)
[2021-07-24] MEDS: traZODone HCL 50 MG TABLET FEED TUBE (21:53)
[2021-07-25] VITALS (19 sets, daily range): BP systolic 110–146; BP diastolic 61–82; PULSE 88–118; RESP 18–24; TEMP 36.4–37; O2SAT 93–100
[2021-07-25 00:13] LABS: Glucose Point of Care 185 mg/dl (65-105)
[2021-07-25] MEDS: FIDAXOMICIN 200 MG TABLET PO ×2 (05:25→19:41)
[2021-07-25] MEDS: ACETAMINOPHEN ELIXIR 325 MG/10.15 ML UDC 650 MG FEED TUBE ×3 (05:27→21:45)
[2021-07-25 06:28] LABS: Glucose Point of Care 167 mg/dl (65-105)
[2021-07-25] MEDS: TIMOLOL MALEATE 0.25% OP SOLN 5 ML BOTTLE 1 DROP EACH EYE ×2 (09:18→20:30)
[2021-07-25] MEDS: METOPROLOL TARTRATE 25 MG TABLET 75 MG FEED TUBE ×2 (09:18→20:30)
[2021-07-25] MEDS: FINASTERIDE 5 MG TABLET FEED TUBE (09:19)
[2021-07-25] MEDS: DULoxetine HCL 20 MG CAPSULE.DR PO (09:19)
[2021-07-25] MEDS: APIXABAN 2.5 MG TABLET PO ×2 (09:19→20:29)
[2021-07-25] MEDS: SILVERGEL (ELTA) 45 ML 1 APPLIC TOPICAL (09:20)
[2021-07-25 10:28] LABS: Alanine Aminotransferase 17 U/L (4-50); Albumin Level 3.3 g/dL (3.5-5.1); Alkaline Phosphatase 61 U/L (38-126); Anion Gap 8 mmol/L (8-16); Aspartate Amino Transferase 36 U/L (17-59); Bilirubin,Total 0.5 mg/dL (0.2-1.3); Blood Urea Nitrogen 17 mg/dL (9-20); Calcium 8.9 mg/dL (8.4-10.2); Carbon Dioxide 22 mmol/L (22-30); Chloride 104 mmol/L (98-107); Estimated CRCL calculation 62 ml/min; Estimated Glomerular Filt Rate > 60; Glucose 157 mg/dL (65-110); Potassium 4.5 mmol/L (3.4-5.0); Sodium 134 mmol/L (137-145)
[2021-07-25 11:03] LABS: Basophils Absolute Auto 0.1 K/mm3 (0.0-0.1); Basophils Percent Auto 0.6 % (0.2-1.2); Eosinophils Absolute Auto 0.6 K/mm3 (0-0.3); Eosinophils Percent Auto 4.6 % (0-4.4); Hematocrit 26.7 % (42.0-52.0); Hemoglobin 8.3 g/dL (14.0-18.0); Immature Granulocyte Percent A 1.6 % (0-0.5); Lymphocytes Absolute Auto 1.39 K/mm3 (0.9-3.2); Lymphocytes Percent Auto 11.2 % (18.3-44.2); Mean Corpuscular HGB Conc 31.1 g/dl (32-36); Mean Corpuscular Hemoglobin 26.9 pg (26-34); Mean Corpuscular Volume 86.4 fl (80-100); Mean Platelet Volume 8.9 fl (7.4-10.4); Monocytes Absolute Auto 0.9 K/mm3 (0.1-0.6); Monocytes Percent Auto 7.2 % (2.6-8.5); Neutrophils Absolute Auto 9.3 K/mm3 (1.3-6.7); Neutrophils Percent Auto 74.8 % (45.5-73.1); Platelet Count Result 427 k/mm3 (150-375); Red Blood Count 3.09 M/mm3 (4.6-6.20); Red Cell Distribution Width 17.4 % (11.5-14.5); White Blood Count 12.4 K/mm3 (4.5-10.0)
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
--- NOTE | 2021-07-25 11:31 | PM.PNCARD ---
Progress Note: A&P Assessment and Plan (1) Elevated troponin I level: Code(s): R77.8 - Other specified abnormalities of plasma proteins Status: Acute Assessment and Plan: This is likely from demand ischemia from marked/severe tachycardia resulting in a supply/demand mismatch. Not from acute plaque rupture (2) Anemia: Code(s): D64.9 - Anemia, unspecified Status: Acute Assessment and Plan: On Eliquis so awaiting hemoglobin and hematocrit from this morning (3) Aspiration pneumonia: Qualifiers: Aspiration pneumonia type: unspecified Laterality: unspecified laterality Lung location: unspecified part of lung Qualified Code(s): J69.0 - Pneumonitis due to inhalation of food and vomit Code(s): J69.0 - Pneumonitis due to inhalation of food and vomit Status: Acute Assessment and Plan: On antibiotics (4) 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 - Pressure ulcer of sacral region, unspecified stage Status: Acute Assessment and Plan: On antibiotics (5) Atrial fibrillation: Code(s): I48.91 - Unspecified atrial fibrillation Status: Acute Assessment and Plan: Continue metoprolol and Eliquis as long as hemoglobin remains stable. Subjective Date/time seen: 07/25/21 11:31 Interval history: Pt is a 86 y/o male here for suspected pneumonia. Patient was seen today and speaks fairly good Bangladeshi although his contradicted some of the things he told me. Patient states that he is feeling okay today. He says he has a continuous cough that is dry and he is not coughing up anything. He does not feel short of breath or have chest pain. He said he has been on a feeding tube since earlier this year but then in the last week transitioned to oral feedings. I called his who states that this is not true, the patient has not had any oral feedings other than sips of water and that they do tube feedings. He was having low-grade fevers and he was vomiting up his tube feedings thus they brought him into the emergency room. The patient told me he did not have any diarrhea but during my exam I did see some liquid diarrhea that he was unaware of. He states he has had a catheter since his accident. 07/25/2021 date of service: Heart rate is up and down but generally controlled. No chest pain or shortness of breath Review of Systems Review of Systems: All systems reviewed & are unremarkable except as noted in HPI and below Constitutional: Constitutional: Denies excessive sweating, Denies headache(s) and Reports weakness Eyes: Eyes: Denies blurry vision ENT: Reports Normal hearing present and Denies headache(s) Cardiovascular: Cardiovascular: Denies chest pain, Reports pedal edema, Reports palpitations and Denies dyspnea Respiratory: Respiratory: Denies dyspnea Gastrointestinal: Gastrointestinal: Denies abdominal pain Genitourinary: Genitourinary: Denies dysuria Musculoskeletal: Musculoskeletal: Denies back pain and Denies arthralgias Integumentary/Breasts: Skin/Breast: Reports dry skin Neurologic: Reports Normal hearing present, Denies headache(s) and Reports weakness Psychiatric: Psychiatric: Denies anxiety Endocrine: Endocrine: Denies excessive sweating and Reports palpitations Hematologic/Lymphatic: Hematologic/Lymphatic: Denies easy bleeding Allergic/Immunologic: Allergic/Immunologic: Denies GI upset with certain foods Exam Narrative: Awake pleasant and oriented. Appears stated age Const: General: comfortable and no acute distress HENMT: General nose exam: Normal nares present Other: Healed tracheostomy site is noted Eyes: Sclera: sclerae normal Neck: Neck: supple and no JVD Chest: Other: No chest deformities or reproducible chest wall pain Resp: Auscultation: rhonchi, wheezes and diminished lung sounds Cardio: Rate: tachycardic Rhythm: abnormal rhythm irregularly irregular GI: Inspection: non-distended
--- NOTE | 2021-07-25 11:43 | PCNFU ---
Nutrition Follow-Up Complete: Altered GI function related to g tube as evidenced by nausea, vomiting and aspiration. Goal: Patient to meet estimated nutritional needs. Pt. is progressing towards goal. No new goal at this time. Pt current nutrition is Jevity 1.2 at 65 mls per hour over 22 hours per day. Last recorded weight is 65 kg. Recommend re-weighing pt. prior to discharge. Bowel Motility: + BM 07/25/2021 Labs Reviewed: Na 134, Glu 157, Alb 3.3 Meds Noted: Lovenox, Desyrel, Cymbalta, Proscar, Glucagon, Atrovent Neb, Novolog, Lopressor Skin: Stage IV sacral pressure ulcer Additional Notes: Pt. is on Jevity 1.2 at 65 mls per hour over 22 hours per day providing 1716 calories, 79 g of protein and 1154 mls with a 80 ml water flush Q4. She is tolerating feeding well with little residuals. Follow up every Wednesday and Wednesday.
--- NOTE | 2021-07-25 13:40 | PCNSR ---
On 07/25/21, the student,Rosa Ramirez, provided care and completed [facility] documentation on this patient. I have reviewed the student's documentation and agree with the findings.
--- NOTE | 2021-07-25 14:22 | PCSTNOTE ---
THERAPIST INSTRUCTED CONCERNING NEW EXERCISES AND HOW TO COMPLETE THEM. 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
--- NOTE | 2021-07-25 14:45 | PC.NURSE ---
On 07/25/21, the student, [Kristal Roberts], provided care and completed [facility] documentation on this patient. I have reviewed the student's documentation and agree with the findings.
[2021-07-25 17:48] LABS: Glucose Point of Care 137 mg/dl (65-105)
[2021-07-25] MEDS: LATANOPROST 0.005% OP SOLN 2.5 ML BTL 1 DROP EACH EYE (20:29)
[2021-07-25] MEDS: traZODone HCL 50 MG TABLET FEED TUBE (20:31)
[2021-07-25 23:52] LABS: Glucose Point of Care 157 mg/dl (65-105)
[2021-07-26] VITALS (15 sets, daily range): BP systolic 109–152; BP diastolic 61–87; PULSE 59–108; RESP 18–21; TEMP 36.4–36.6; O2SAT 96–99; BMI 11.0; BMI 10.0
[2021-07-26 05:08] LABS: Basophils Absolute Auto 0.1 K/mm3 (0.0-0.1); Basophils Percent Auto 0.7 % (0.2-1.2); Eosinophils Absolute Auto 0.6 K/mm3 (0-0.3); Eosinophils Percent Auto 4.9 % (0-4.4); Hematocrit 27.7 % (42.0-52.0); Hemoglobin 8.4 g/dL (14.0-18.0); Immature Granulocyte Absolute 0.31 K/mm3 (0.00-0.031); Immature Granulocyte Percent A 2.7 % (0-0.5); Lymphocytes Absolute Auto 1.55 K/mm3 (0.9-3.2); Lymphocytes Percent Auto 13.4 % (18.3-44.2); Mean Corpuscular HGB Conc 30.3 g/dl (32-36); Mean Corpuscular Volume 89.1 fl (80-100); Mean Platelet Volume 9.1 fl (7.4-10.4); Monocytes Percent Auto 8.3 % (2.6-8.5); Neutrophils Absolute Auto 8.1 K/mm3 (1.3-6.7); Nucleated Red Blood Cells Perc 0.2 % (0.0-0.2); Platelet Count Result 430 k/mm3 (150-375); Red Blood Count 3.11 M/mm3 (4.6-6.20); Red Cell Distribution Width 17.7 % (11.5-14.5); White Blood Count 11.6 K/mm3 (4.5-10.0)
[2021-07-26 05:16] LABS: Glucose Point of Care 173 mg/dl (65-105)
[2021-07-26 05:21] LABS: Anion Gap 7 mmol/L (8-16); Blood Urea Nitrogen 18 mg/dL (9-20); Carbon Dioxide 27 mmol/L (22-30); Chloride 100 mmol/L (98-107); Estimated CRCL calculation 55 ml/min; Estimated Glomerular Filt Rate > 60; Glucose 172 mg/dL (65-110); Sodium 134 mmol/L (137-145)
[2021-07-26] MEDS: FIDAXOMICIN 200 MG TABLET PO ×2 (05:33→17:30)
[2021-07-26] MEDS: ACETAMINOPHEN ELIXIR 325 MG/10.15 ML UDC 650 MG FEED TUBE ×3 (05:33→22:26)
[2021-07-26] MEDS: METOPROLOL TARTRATE 25 MG TABLET 75 MG FEED TUBE ×2 (09:23→22:24)
[2021-07-26] MEDS: FINASTERIDE 5 MG TABLET FEED TUBE (09:24)
[2021-07-26] MEDS: DULoxetine HCL 20 MG CAPSULE.DR PO (09:24)
[2021-07-26] MEDS: TIMOLOL MALEATE 0.25% OP SOLN 5 ML BOTTLE 1 DROP EACH EYE ×2 (09:25→21:53)
[2021-07-26] MEDS: APIXABAN 2.5 MG TABLET PO ×2 (09:25→22:26)
[2021-07-26] MEDS: SILVERGEL (ELTA) 45 ML 1 APPLIC TOPICAL (09:25)
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
[2021-07-26] MEDS: FUROSEMIDE INJ 40 MG/4 ML VIAL 20 MG IV PUSH (10:48)
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
[2021-07-26 12:25] LABS: Glucose Point of Care 138 mg/dl (65-105)
--- NOTE | 2021-07-26 14:43 | PC.NURSE ---
This patient, Geraldo Paniagua, was transferred to [facility] on 07/26/21 at 1440. Personal belongings sent with patient. Report given to Amber MELVIN. Appropriate documentation sent with patient.
[2021-07-26 18:40] LABS: Glucose Point of Care 168 mg/dl (65-105)
[2021-07-26] MEDS: LATANOPROST 0.005% OP SOLN 2.5 ML BTL 1 DROP EACH EYE (21:53)
--- NOTE | 2021-07-26 22:15 | PC.NURSE ---
When giving medication to patient spilled medication, ordered new dose.
[2021-07-26] MEDS: traZODone HCL 50 MG TABLET FEED TUBE (22:26)
[2021-07-27] VITALS (7 sets, daily range): BP systolic 117–159; BP diastolic 52–85; PULSE 86–115; RESP 16–24; TEMP 36.1–36.9; O2SAT 96–99
[2021-07-27 01:02] LABS: Glucose Point of Care 172 mg/dl (65-105)
[2021-07-27] MEDS: FIDAXOMICIN 200 MG TABLET PO ×2 (05:59→17:43)
[2021-07-27] MEDS: ACETAMINOPHEN ELIXIR 325 MG/10.15 ML UDC 650 MG FEED TUBE ×3 (06:03→21:21)
[2021-07-27 06:08] LABS: Basophils Absolute Auto 0.1 K/mm3 (0.0-0.1); Basophils Percent Auto 0.5 % (0.2-1.2); Eosinophils Absolute Auto 0.6 K/mm3 (0-0.3); Eosinophils Percent Auto 4.1 % (0-4.4); Hematocrit 27.7 % (42.0-52.0); Hemoglobin 8.6 g/dL (14.0-18.0); Immature Granulocyte Absolute 0.39 K/mm3 (0.00-0.031); Immature Granulocyte Percent A 2.8 % (0-0.5); Lymphocytes Absolute Auto 1.57 K/mm3 (0.9-3.2); Lymphocytes Percent Auto 11.2 % (18.3-44.2); Mean Corpuscular Hemoglobin 27.1 pg (26-34); Mean Corpuscular Volume 87.4 fl (80-100); Mean Platelet Volume 9.2 fl (7.4-10.4); Monocytes Absolute Auto 1.2 K/mm3 (0.1-0.6); Monocytes Percent Auto 8.3 % (2.6-8.5); Neutrophils Absolute Auto 10.3 K/mm3 (1.3-6.7); Neutrophils Percent Auto 73.1 % (45.5-73.1); Nucleated Red Blood Cells Perc 0.1 % (0.0-0.2); Platelet Count Result 426 k/mm3 (150-375); Red Blood Count 3.17 M/mm3 (4.6-6.20); Red Cell Distribution Width 17.3 % (11.5-14.5); White Blood Count 14.1 K/mm3 (4.5-10.0)
[2021-07-27 06:24] LABS: Anion Gap 8 mmol/L (8-16); Blood Urea Nitrogen 19 mg/dL (9-20); Calcium 8.9 mg/dL (8.4-10.2); Carbon Dioxide 25 mmol/L (22-30); Chloride 98 mmol/L (98-107); Estimated CRCL calculation 62 ml/min; Estimated Glomerular Filt Rate > 60; Glucose 158 mg/dL (65-110); Potassium 3.8 mmol/L (3.4-5.0); Sodium 131 mmol/L (137-145)
[2021-07-27 07:36] LABS: Glucose Point of Care 168 mg/dl (65-105)
[2021-07-27] MEDS: FINASTERIDE 5 MG TABLET FEED TUBE (08:27)
[2021-07-27] MEDS: DULoxetine HCL 20 MG CAPSULE.DR PO (08:27)
[2021-07-27] MEDS: METOPROLOL TARTRATE 25 MG TABLET 75 MG FEED TUBE ×2 (08:27→21:21)
[2021-07-27] MEDS: APIXABAN 2.5 MG TABLET PO ×2 (08:27→21:21)
[2021-07-27] MEDS: TIMOLOL MALEATE 0.25% OP SOLN 5 ML BOTTLE 1 DROP EACH EYE ×2 (08:28→21:22)
[2021-07-27] MEDS: SILVERGEL (ELTA) 45 ML 1 APPLIC TOPICAL (08:28)
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
[2021-07-27] MEDS: FUROSEMIDE INJ 40 MG/4 ML VIAL 20 MG IV PUSH (11:51)
[2021-07-27 12:28] LABS: Glucose Point of Care 178 mg/dl (65-105)
[2021-07-27 18:15] LABS: Glucose Point of Care 196 mg/dl (65-105)
[2021-07-27] MEDS: traZODone HCL 50 MG TABLET FEED TUBE (21:21)
[2021-07-27] MEDS: LATANOPROST 0.005% OP SOLN 2.5 ML BTL 1 DROP EACH EYE (21:22)
[2021-07-28] VITALS (12 sets, daily range): BP systolic 100–135; BP diastolic 67–83; PULSE 86–116; RESP 18–21; TEMP 36.1–36.4; O2SAT 98–100
[2021-07-28 02:53] LABS: Glucose Point of Care 179 mg/dl (65-105)
[2021-07-28 05:17] LABS: Estimated CRCL calculation 59 ml/min; Estimated Glomerular Filt Rate > 60
[2021-07-28] MEDS: ACETAMINOPHEN ELIXIR 325 MG/10.15 ML UDC 650 MG FEED TUBE ×3 (06:31→22:27)
[2021-07-28] MEDS: FIDAXOMICIN 200 MG TABLET PO (06:31)
[2021-07-28] MEDS: INSULIN ASPART (*BKC) 100 UNITS/ML SUB-Q (06:38)
[2021-07-28 07:41] LABS: Glucose Point of Care 201 mg/dl (65-105)
--- NOTE | 2021-07-28 08:57 | PM.PNCARD ---
Progress Note: A&P Assessment and Plan (1) Elevated troponin I level: Code(s): R77.8 - Other specified abnormalities of plasma proteins <POWER Mcnulty - Last Filed: 07/28/21 10:14> Status: Acute <POWER Mcnulty - Last Filed: 07/28/21 10:14> Assessment and Plan: This is likely from demand ischemia from marked/severe tachycardia resulting in a supply/demand mismatch. Not from acute plaque rupture <POWER Mcnulty - Last Filed: 07/28/21 10:14> (2) Atrial fibrillation: Code(s): I48.91 - Unspecified atrial fibrillation <POWER Mcnulty - Last Filed: 07/28/21 10:14> Status: Acute <POWER Mcnulty - Last Filed: 07/28/21 10:14> Assessment and Plan: Rate is generally well controlled - currently in the low 100's. Continue metoprolol tartrate 75mg q12. Continue Eliquis as long as hemoglobin remains stable. <POWER Mcnulty - Last Filed: 07/28/21 10:14> (3) Aspiration pneumonia: Qualifiers: Aspiration pneumonia type: unspecified Laterality: unspecified laterality Lung location: unspecified part of lung Qualified Code(s): J69.0 - Pneumonitis due to inhalation of food and vomit <POWER Mcnulty - Last Filed: 07/28/21 10:14> Code(s): J69.0 - Pneumonitis due to inhalation of food and vomit <POWER Mcnulty - Last Filed: 07/28/21 10:14> Status: Acute <POWER Mcnulty - Last Filed: 07/28/21 10:14> Assessment and Plan: On antibiotics. Management per hospitalist. <POWER Mcnulty - Last Filed: 07/28/21 10:14> (4) 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 - Pressure ulcer of sacral region, unspecified stage <AUGUSTINA McnultyC - Last Filed: 07/28/21 10:14> Status: Acute <Paz WashingtonPOWER - Last Filed: 07/28/21 10:14> Assessment and Plan: On antibiotics <Paz WashingtonPOWER - Last Filed: 07/28/21 10:14> (5) Anemia: Code(s): D64.9 - Anemia, unspecified <Paz SaucedaPOWER olmedo - Last Filed: 07/28/21 10:14> Status: Acute <Paz WashingtonPOWER - Last Filed: 07/28/21 10:14> Assessment and Plan: On Eliquis. Hemoglobin stable <Paz SaucedaPOWER olmedo - Last Filed: 07/28/21 10:14> Additional Plan Attending Addendum: I personally seen and examined this patient at bedside. I agree with the above documentation and plan of care as outlined. -follow-up for atrial fibrillation, elevated troponin in setting of aspiration pneumonia, anemia. Remains in atrial fibrillation heart rate generally well controlled occasional brief RVR generally 80s to low 100s. Patient denies shortness of breath, chest pain palpitations. Admits to pain on his backside and left back/shoulder. No new issues overnight. Receiving metoprolol and Eliquis per feeding tube. BP generally 120 to 130s 100/67 earlier this morning. Exam: Pleasant, thin elderly male, NAD, alert, oriented, cooperative, breathing comfortably answering questions short answers, at bedside. Patient is smiling. No JVD Lungs CTA bilaterally Cardio irregularly irregular rate and rhythm, S1/S2 no significant murmurs Abd soft, slightly distended NT, + hyperactive BS, feeding tube in place Ext no edema, clubbing, or cyanosis Plan of Care: Continue systemic anticoagulation per feeding tube. Monitor for bleeding. Continue metoprolol per feeding tube. May up titrate to 100 mg q.12 hours as blood pressure permits if heart rate more elevated. Stable from cardiovascular perspective at this time. Conservative management. Further workup and treatment per primary service. Heart rate stable next 24 hours may consider discontinuation of telemetry. Follow H&H closely. Antibiotics and wound care per primary service. <Trevon Baker MD - Last Filed: 07/28/21 13:31> Subjective Date/time seen: 07/28/21 08:57 <Paz Washington A
[2021-07-28] MEDS: METOPROLOL TARTRATE 25 MG TABLET 75 MG FEED TUBE ×2 (09:17→20:42)
[2021-07-28] MEDS: DULoxetine HCL 20 MG CAPSULE.DR PO (09:18)
[2021-07-28] MEDS: APIXABAN 2.5 MG TABLET PO (09:18)
[2021-07-28] MEDS: FINASTERIDE 5 MG TABLET FEED TUBE (09:18)
[2021-07-28] MEDS: SILVERGEL (ELTA) 45 ML 1 APPLIC TOPICAL (09:19)
[2021-07-28] MEDS: TIMOLOL MALEATE 0.25% OP SOLN 5 ML BOTTLE 1 DROP EACH EYE ×2 (09:19→20:43)
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
[2021-07-28 11:57] LABS: Glucose Point of Care 151 mg/dl (65-105)
[2021-07-28 13:53] LABS: Basophils Absolute Auto 0.1 K/mm3 (0.0-0.1); Basophils Percent Auto 0.6 % (0.2-1.2); Eosinophils Absolute Auto 0.5 K/mm3 (0-0.3); Eosinophils Percent Auto 3.8 % (0-4.4); Hematocrit 29.8 % (42.0-52.0); Hemoglobin 9.5 g/dL (14.0-18.0); Immature Granulocyte Absolute 0.64 K/mm3 (0.00-0.031); Immature Granulocyte Percent A 4.5 % (0-0.5); Lymphocytes Absolute Auto 1.75 K/mm3 (0.9-3.2); Lymphocytes Percent Auto 12.3 % (18.3-44.2); Mean Corpuscular HGB Conc 31.9 g/dl (32-36); Mean Corpuscular Volume 84.7 fl (80-100); Mean Platelet Volume 8.7 fl (7.4-10.4); Monocytes Absolute Auto 1.2 K/mm3 (0.1-0.6); Monocytes Percent Auto 8.4 % (2.6-8.5); Neutrophils Percent Auto 70.4 % (45.5-73.1); Platelet Count Result 488 k/mm3 (150-375); Red Blood Count 3.52 M/mm3 (4.6-6.20); Red Cell Distribution Width 17.1 % (11.5-14.5); White Blood Count 14.2 K/mm3 (4.5-10.0)
[2021-07-28 14:02] LABS: Anion Gap 7 mmol/L (8-16); Blood Urea Nitrogen 20 mg/dL (9-20); Calcium 9.4 mg/dL (8.4-10.2); Carbon Dioxide 29 mmol/L (22-30); Chloride 97 mmol/L (98-107); Estimated CRCL calculation 56 ml/min; Estimated Glomerular Filt Rate > 60; Glucose 165 mg/dL (65-110); Sodium 133 mmol/L (137-145)
[2021-07-28] MEDS: FIDAXOMICIN 200 MG TABLET FEED TUBE (17:30)
[2021-07-28 17:45] LABS: Glucose Point of Care 172 mg/dl (65-105)
[2021-07-28] MEDS: LATANOPROST 0.005% OP SOLN 2.5 ML BTL 1 DROP EACH EYE (20:42)
[2021-07-28] MEDS: traZODone HCL 50 MG TABLET FEED TUBE (20:43)
[2021-07-28] MEDS: APIXABAN 2.5 MG TABLET FEED TUBE (20:43)
[2021-07-29] VITALS (13 sets, daily range): BP systolic 109–115; BP diastolic 46–72; PULSE 77–108; RESP 18–22; TEMP 36.3–36.9; O2SAT 95–100
[2021-07-29 00:36] LABS: Glucose Point of Care 193 mg/dl (65-105)
[2021-07-29] MEDS: ACETAMINOPHEN ELIXIR 325 MG/10.15 ML UDC 650 MG FEED TUBE ×3 (06:32→21:32)
[2021-07-29] MEDS: FIDAXOMICIN 200 MG TABLET FEED TUBE ×2 (06:32→17:56)
[2021-07-29 06:43] LABS: Glucose Point of Care 180 mg/dl (65-105)
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
[2021-07-29] MEDS: DULoxetine HCL 20 MG CAPSULE.DR PO (09:28)
[2021-07-29] MEDS: FINASTERIDE 5 MG TABLET FEED TUBE (09:28)
[2021-07-29] MEDS: APIXABAN 2.5 MG TABLET FEED TUBE ×2 (09:28→21:33)
[2021-07-29] MEDS: TIMOLOL MALEATE 0.25% OP SOLN 5 ML BOTTLE 1 DROP EACH EYE ×2 (09:28→21:32)
[2021-07-29] MEDS: METOPROLOL TARTRATE 25 MG TABLET 75 MG FEED TUBE ×2 (09:29→21:32)
[2021-07-29] MEDS: SILVERGEL (ELTA) 45 ML 1 APPLIC TOPICAL (09:29)
--- NOTE | 2021-07-29 11:19 | PCNFU ---
Nutrition Follow-Up Complete: Altered GI function related to g tube as evidenced by nausea, vomiting and aspiration. Goal: Patient to meet estimated nutritional needs. Patient is meeting nutrition goal. No new goal. Pt current nutrition is Jevity 1.2 at 65 ml/hr over 22 hours. Last recorded weight is 57.8 kg, down from 59.3 kg on admit. Bowel Motility:+BM reported 07/28 Labs Reviewed:Glu 165, Na 133, Hct 29.8,Hgb 9.5 Meds Noted:Eliquis,Zosyn, Cymbalta, Proscar Skin: Stage IV -saccum. Additional Notes: Nutrition follow up. Patient is tolerating tube feeding of Jevity 1.2 at 65 ml/hr over 22 hours, providing 1716 kcals/79 gm protein/1154 ml water. Free water flush 80 ml q 4 hours. MD orders for Protein Modular added of Abdelrahman BID providing an additional 90 kcals and 2.5 gms protein. Agree with diet orders. Monitoring: patients medications, labs, weight and oral intake every Wednesday and Wednesday.
[2021-07-29 11:56] LABS: Glucose Point of Care 185 mg/dl (65-105)
[2021-07-29] MEDS: INSULIN ASPART (*BKC) 100 UNITS/ML SUB-Q (18:13)
[2021-07-29 18:37] LABS: Glucose Point of Care 203 mg/dl (65-105)
[2021-07-29] MEDS: LATANOPROST 0.005% OP SOLN 2.5 ML BTL 1 DROP EACH EYE (21:32)
[2021-07-29] MEDS: traZODone HCL 50 MG TABLET FEED TUBE (21:33)
[2021-07-30] VITALS (14 sets, daily range): BP systolic 101–144; BP diastolic 56–65; PULSE 82–108; RESP 16–18; TEMP 36.2–36.6; O2SAT 16–100
[2021-07-30 01:00] LABS: Glucose Point of Care 174 mg/dl (65-105)
[2021-07-30] MEDS: FIDAXOMICIN 200 MG TABLET FEED TUBE ×2 (05:42→17:06)
[2021-07-30] MEDS: ACETAMINOPHEN ELIXIR 325 MG/10.15 ML UDC 650 MG FEED TUBE ×3 (05:42→21:46)
[2021-07-30 05:46] LABS: Glucose Point of Care 163 mg/dl (65-105)
[2021-07-30 06:10] LABS: Basophils Absolute Auto 0.1 K/mm3 (0.0-0.1); Basophils Percent Auto 0.5 % (0.2-1.2); Eosinophils Absolute Auto 0.5 K/mm3 (0-0.3); Eosinophils Percent Auto 3.6 % (0-4.4); Hematocrit 30.2 % (42.0-52.0); Hemoglobin 9.3 g/dL (14.0-18.0); Immature Granulocyte Absolute 0.57 K/mm3 (0.00-0.031); Immature Granulocyte Percent A 4.3 % (0-0.5); Lymphocytes Absolute Auto 1.54 K/mm3 (0.9-3.2); Lymphocytes Percent Auto 11.7 % (18.3-44.2); Mean Corpuscular HGB Conc 30.8 g/dl (32-36); Mean Corpuscular Hemoglobin 26.3 pg (26-34); Mean Corpuscular Volume 85.6 fl (80-100); Monocytes Absolute Auto 1.1 K/mm3 (0.1-0.6); Neutrophils Absolute Auto 9.5 K/mm3 (1.3-6.7); Neutrophils Percent Auto 71.9 % (45.5-73.1); Platelet Count Result 490 k/mm3 (150-375); Red Blood Count 3.53 M/mm3 (4.6-6.20); Red Cell Distribution Width 17.4 % (11.5-14.5); White Blood Count 13.2 K/mm3 (4.5-10.0)
[2021-07-30 06:17] LABS: Anion Gap 10 mmol/L (8-16); Blood Urea Nitrogen 28 mg/dL (9-20); Calcium 9.4 mg/dL (8.4-10.2); Carbon Dioxide 26 mmol/L (22-30); Chloride 97 mmol/L (98-107); Estimated CRCL calculation 51 ml/min; Estimated Glomerular Filt Rate > 60; Glucose 159 mg/dL (65-110); Sodium 133 mmol/L (137-145)
[2021-07-30] MEDS: METOPROLOL TARTRATE 25 MG TABLET 75 MG FEED TUBE ×2 (09:03→21:45)
[2021-07-30] MEDS: FINASTERIDE 5 MG TABLET FEED TUBE (09:03)
[2021-07-30] MEDS: APIXABAN 2.5 MG TABLET FEED TUBE ×2 (09:03→21:45)
[2021-07-30] MEDS: TIMOLOL MALEATE 0.25% OP SOLN 5 ML BOTTLE 1 DROP EACH EYE ×2 (09:03→21:46)
[2021-07-30] MEDS: DULoxetine HCL 20 MG CAPSULE.DR PO (09:03)
[2021-07-30] MEDS: SILVERGEL (ELTA) 45 ML 1 APPLIC TOPICAL (09:03)
[2021-07-30 11:44] LABS: Glucose Point of Care 148 mg/dl (65-105)
[2021-07-30 17:14] LABS: Glucose Point of Care 171 mg/dl (65-105)
--- NOTE | 2021-07-30 18:03 | PC.NURSE ---
E Marketing Specialist spoke with Dr. Irving regarding pharmacy clarification that Zosyn will be expiring medication will be renewed.
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
[2021-07-30] MEDS: traZODone HCL 50 MG TABLET FEED TUBE (21:45)
[2021-07-30] MEDS: LATANOPROST 0.005% OP SOLN 2.5 ML BTL 1 DROP EACH EYE (21:46)
[2021-07-31] VITALS (14 sets, daily range): BP systolic 117–122; BP diastolic 48–64; PULSE 86–117; RESP 16–18; TEMP 36.2–36.6; O2SAT 96–99
[2021-07-31 02:24] LABS: Glucose Point of Care 167 mg/dl (65-105)
[2021-07-31] MEDS: FIDAXOMICIN 200 MG TABLET FEED TUBE ×2 (06:15→17:10)
[2021-07-31] MEDS: ACETAMINOPHEN ELIXIR 325 MG/10.15 ML UDC 650 MG FEED TUBE ×3 (06:15→21:36)
[2021-07-31 06:16] LABS: Estimated CRCL calculation 58 ml/min; Estimated Glomerular Filt Rate > 60
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
[2021-07-31 07:56] LABS: Glucose Point of Care 161 mg/dl (65-105)
[2021-07-31] MEDS: METOPROLOL TARTRATE 25 MG TABLET 75 MG FEED TUBE ×2 (09:50→21:37)
[2021-07-31] MEDS: DULoxetine HCL 20 MG CAPSULE.DR PO (09:50)
[2021-07-31] MEDS: FINASTERIDE 5 MG TABLET FEED TUBE (09:50)
[2021-07-31] MEDS: APIXABAN 2.5 MG TABLET FEED TUBE ×2 (09:50→21:37)
[2021-07-31] MEDS: SILVERGEL (ELTA) 45 ML 1 APPLIC TOPICAL (09:53)
[2021-07-31] MEDS: TIMOLOL MALEATE 0.25% OP SOLN 5 ML BOTTLE 1 DROP EACH EYE ×2 (09:54→21:37)
[2021-07-31 11:42] LABS: Glucose Point of Care 145 mg/dl (65-105)
[2021-07-31 18:54] LABS: Glucose Point of Care 153 mg/dl (65-105)
[2021-07-31] MEDS: LATANOPROST 0.005% OP SOLN 2.5 ML BTL 1 DROP EACH EYE (21:37)
[2021-07-31] MEDS: traZODone HCL 50 MG TABLET FEED TUBE (21:37)
[2021-08-01] VITALS (14 sets, daily range): BP systolic 107–151; BP diastolic 55–87; PULSE 70–130; RESP 16–20; TEMP 36.2–36.7; O2SAT 96–98
[2021-08-01 00:48] LABS: Glucose Point of Care 187 mg/dl (65-105)
[2021-08-01] MEDS: ACETAMINOPHEN ELIXIR 325 MG/10.15 ML UDC 650 MG FEED TUBE ×3 (05:46→21:00)
[2021-08-01] MEDS: FIDAXOMICIN 200 MG TABLET FEED TUBE ×2 (05:46→18:01)
[2021-08-01 05:47] LABS: Basophils Absolute Auto 0.1 K/mm3 (0.0-0.1); Basophils Percent Auto 0.5 % (0.2-1.2); Eosinophils Absolute Auto 0.6 K/mm3 (0-0.3); Hematocrit 30.7 % (42.0-52.0); Hemoglobin 9.4 g/dL (14.0-18.0); Immature Granulocyte Absolute 0.41 K/mm3 (0.00-0.031); Immature Granulocyte Percent A 2.9 % (0-0.5); Lymphocytes Absolute Auto 1.55 K/mm3 (0.9-3.2); Mean Corpuscular HGB Conc 30.6 g/dl (32-36); Mean Corpuscular Hemoglobin 26.7 pg (26-34); Mean Corpuscular Volume 87.2 fl (80-100); Mean Platelet Volume 9.1 fl (7.4-10.4); Monocytes Absolute Auto 1.1 K/mm3 (0.1-0.6); Monocytes Percent Auto 7.4 % (2.6-8.5); Neutrophils Absolute Auto 10.5 K/mm3 (1.3-6.7); Neutrophils Percent Auto 74.2 % (45.5-73.1); Platelet Count Result 458 k/mm3 (150-375); Red Blood Count 3.52 M/mm3 (4.6-6.20); Red Cell Distribution Width 17.6 % (11.5-14.5); White Blood Count 14.1 K/mm3 (4.5-10.0)
[2021-08-01 05:59] LABS: Anion Gap 8 mmol/L (8-16); Blood Urea Nitrogen 36 mg/dL (9-20); Calcium 9.4 mg/dL (8.4-10.2); Carbon Dioxide 28 mmol/L (22-30); Chloride 97 mmol/L (98-107); Estimated CRCL calculation 51 ml/min; Estimated Glomerular Filt Rate > 60; Glucose 166 mg/dL (65-110); Potassium 3.9 mmol/L (3.4-5.0); Sodium 133 mmol/L (137-145)
[2021-08-01 06:54] LABS: Glucose Point of Care 173 mg/dl (65-105)
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
[2021-08-01] MEDS: METOPROLOL TARTRATE 25 MG TABLET 75 MG FEED TUBE ×2 (08:30→20:15)
[2021-08-01] MEDS: APIXABAN 2.5 MG TABLET FEED TUBE ×2 (08:31→20:15)
[2021-08-01] MEDS: SILVERGEL (ELTA) 45 ML 1 APPLIC TOPICAL (08:31)
[2021-08-01] MEDS: TIMOLOL MALEATE 0.25% OP SOLN 5 ML BOTTLE 1 DROP EACH EYE ×2 (08:31→20:16)
[2021-08-01] MEDS: DULoxetine HCL 20 MG CAPSULE.DR PO (08:31)
[2021-08-01] MEDS: FINASTERIDE 5 MG TABLET FEED TUBE (08:31)
--- NOTE | 2021-08-01 11:12 | WPDINFPN2 ---
Progress Note: A&P Assessment and Plan (1) 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 - Pressure ulcer of sacral region, unspecified stage Status: Acute Assessment and Plan: 1. Leukocytosis, multifactorial, currently due to his sacral decubitus and chronic osteomyelitis 2. Recent aspiration pneumonitis, resolved. 3. Recent C diff infection (+assays at [facility] 05/27 and 06/26), I do not think active, and that his unformed BMs are due to tube feeding and antibiotic effect 4. Functional quadriplegia, no other decubiti 5. Aspiration syndrome, on TF REC PipTazo and fidaxomicin #12 , stop, clinical and WBC followup over time, local care of decubitus, diverting colostomy may be needed in future. Call if Qs Subjective Date/time seen: 08/01/21 11:12 Objective Data Vital Signs Vital Signs: Vital Signs - 24 hr 07/31/21 12:00 07/31/21 14:35 07/31/21 16:00 Temperature 36.2 C L Pulse Rate 90 86 96 Respiratory Rate 18 Blood Pressure 121/64 Pulse Oximetry 99 07/31/21 17:48 07/31/21 20:00 07/31/21 21:34 Temperature 36.2 C L 36.3 C L Pulse Rate 91 100 117 H Respiratory Rate 18 16 Blood Pressure 122/57 L 118/64 Pulse Oximetry 96 97 07/31/21 21:37 08/01/21 00:00 08/01/21 01:24 Temperature 36.2 C L Pulse Rate 117 H 90 93 Respiratory Rate 16 Blood Pressure 107/57 L Pulse Oximetry 97 08/01/21 04:00 08/01/21 06:00 08/01/21 08:00 Temperature 36.7 C Pulse Rate 101 H 106 H 106 H Respiratory Rate 20 Blood Pressure 116/56 L Pulse Oximetry 97 08/01/21 08:30 08/01/21 10:35 Temperature 36.7 C Pulse Rate 130 H 100 Respiratory Rate 18 Blood Pressure 151/87 H Pulse Oximetry 97 Intake/Output Intake/Output: Intake & Output 07/29/21 07/30/21 07/31/21 08/01/21 23:59 23:59 23:59 23:59 Intake Total 1086 2170 2465 911 Output Total 3592 822 1778 750 Balance -264 1370 -260 161 Meds/Results Medications: Active Medications Generic Name Dose Route Start Last Admin Trade Name Freq PRN Reason Stop Dose Admin Acetaminophen 650 mg 07/21/21 06:00 08/01/21 05:46 Acetaminophen Elixir 325 Mg/10.15 Ml Udc FEED TUBE 650 mg Q8HR CICI Administration Albuterol 2.5 mg 07/24/21 13:19 Albuterol Sulfate Neb 2.5 Mg/0.5 Ml Inh INHALATION Q4HRT PRN Shortness Of Breath Apixaban 2.5 mg 07/28/21 21:00 08/01/21 08:31 Apixaban 2.5 Mg Tablet FEED TUBE 2.5 mg Q12HR CICI Administration Dextrose 12.5 gm 07/21/21 04:58 Dextrose 50% 25 Gm/50 Ml Syringe IV PUSH PRN PRN Hypoglycemia Protocol Duloxetine HCl 20 mg 07/21/21 09:00 08/01/21 08:31 Duloxetine Hcl 20 Mg Capsule.Dr PO 20 mg DAILY CICI Administration Fidaxomicin 200 mg 07/28/21 18:00 08/01/21 05:46 Fidaxomicin 200 Mg Tablet FEED TUBE 200 mg Q12H CICI Administration Finasteride 5 mg 07/21/21 09:00 08/01/21 08:31 Finasteride 5 Mg Tablet FEED TUBE 5 mg DAILY CICI Administration Glucagon 1 mg 07/21/21 04:58 Glucagon For Inj 1 Mg Vial IM PRN PRN Hypoglycemia Protocol Glucose 15 gm 07/21/21 04:58 Glucose Oral Gel 15 Gm Of Glucse In 37.5 Gm Tube PO PRN PRN Hypoglycemia Protocol Home Med 0 each 07/24/21 13:00 08/01/21 08:32 Gabapentin 250 Mg/5 Ml Solution (Home Med) FEED TUBE 08/23/21 12:59 1 each TID CICI Administration Piperacillin/Tazobactam/Dextrose 3.375 gm in 50 mls @ 100 mls/hr 07/21/21 09:00 08/01/21 09:14 Zosyn 3.375 Gm/D5w 50ml Pm IVPB Infused Q6H CICI Infusion Dextrose 1,000 mls @ 100 mls/hr 07/21/21 04:58 Dextrose 5% 1,000 Ml IVPB PRN PRN Hypoglycemia Protocol Insulin Aspart 2 - 5 units 07/21/21 06:00 08/01/21 05:46 Insulin Aspart (*Bkc) 100 Units/Ml SUB-Q Not Given Q6H CICI Protocol Ipratropium Valders 0.5 mg 07/24/21 13:35 Ipratropium Br 0.02% Inh Soln 0.5 Mg/2.5 Ml Vial INHALATION Q4HRT PRN Shortness Of Breath Latanoprost 1 drop
[2021-08-01 13:35] LABS: Glucose Point of Care 172 mg/dl (65-105)
--- NOTE | 2021-08-01 17:59 | CONS_ITS ---
DATE OF CONSULTATION: 08/01/2021 REASON FOR CONSULTATION: Leukocytosis. HISTORY OF PRESENT ILLNESS: An 86-year-old male, who has had no recent inpatient stays at this hospital, but he has been at [facility]. Multiple admissions, brought in by a fall in January of 2021. He had cervical spine internal fixation anterior diskectomy and fusion. Postop course was complicated by AF, right vertebral artery injury, aspiration pneumonia, pneumothorax, hypotension, DVT. He has had multiple courses of antibiotics and was found to have C diff infection earlier this year. He had positive assays for the same in mid May and mid June. More recently, he was admitted to [facility] from April 25 until July 16. Narrative summaries are not available from that admission. He was discharged to home due to long-term difficulty placement. He came to this hospital on July 20 with vomiting, chills and incoherence. Here, he was found to have suspected aspiration pneumonia. He has been on piperacillin tazobactam since then. Discharge summary from 07/16/2021 indicated plan for fidaxomicin 200 mg every other day through August 03. The patient remains on tube feeding and is n.p.o. otherwise. He has had persistent leukocytosis and consult requested. He has no abdominal pain. No dyspnea. He has persistent cough. He has loose and unformed but not liquid bowel movements and he describes these to his tube feeding. No abdominal pain. No further chills. He has been afebrile in recent days, he suffered a temperature in the low 38 range for the 1st several days of this current admission. ALLERGIES: SIMVASTATIN, ITCHING. PRESENT MEDICATIONS: List reviewed in full. No immunosuppressants here nor at home. HABITS: Ex-smoker. No alcohol. FAMILY HISTORY: Liver disease. PAST MEDICAL HISTORY: As above. Also, urinary obstruction. He has a Lizama catheter in place. Prior tracheostomy. SOCIAL HISTORY: Daughter is at the bedside. Lives with family. REVIEW OF SYSTEMS: Weight loss, decubitus ulcer. Report of MRI earlier this year showing chronic osteomyelitis over the sacrum, decreased muscle mass, immobility. 14-point review otherwise negative. PHYSICAL EXAMINATION: GENERAL: This is an elderly male, who appears his actual age. Cachectic. No respiratory distress. VITAL SIGNS: Afebrile, 151/87, 100, 18, 97%. SKIN: Warm and dry. He has a 4 cm round sacral decubitus with minimal undermining palpable exposed bone, which appears to be the coccyx. No purulence, odor, hemorrhage, or slough. No surrounding erythema. He has some partial-thickness ulcers 1 cm less over other pressure points, but no other decubitus ulcers. NODES: He has no axillary or cervical adenopathy. EENT: Conjunctivae normal. Pupils equal, round, and reactive to light. The oropharynx and oral mucosa are normal. Teeth in good repair with appliances. NECK: Old tracheostomy scar. The neck has no meningismus. No masses. LUNGS: Clear to auscultation and percussion. Good air entry. CARDIAC: Regular rate and rhythm. No ectopy at this time. Pulses 1+. ABDOMEN: Scaphoid, nontender, nondistended. No masses. No organomegaly. : Lizama catheter draining clear yellow urine. EXTREMITIES: Muscle wasting. No clubbing, cyanosis, edema. LABORATORY DATA: Blood cultures, no growth final. No C diff assays available. White blood cell count 14.1, was 27.8 on admission and has been in the mid teens over the last 9 days. Hemoglobin stable at 9.4, platelets are 458, differential is normal. Chemistry panel with mild hyponatremia, BUN 36. Accu-Cheks variable, currently 173. His C-reactive protein, which was obtained on arrival was 26. His liver function testing has been normal to low, albu
[2021-08-01 18:18] LABS: Glucose Point of Care 174 mg/dl (65-105)
[2021-08-01] MEDS: GLYCOPYRROLATE INJ (*SP) 0.2 MG/ML VIAL 0.1 MG IV PUSH (20:03)
[2021-08-01] MEDS: traZODone HCL 50 MG TABLET FEED TUBE (20:16)
[2021-08-01] MEDS: LATANOPROST 0.005% OP SOLN 2.5 ML BTL 1 DROP EACH EYE (20:16)
[2021-08-02] VITALS (10 sets, daily range): BP systolic 115–135; BP diastolic 60–75; PULSE 85–135; RESP 16–36; TEMP 36.2–36.8; O2SAT 96–98
[2021-08-02 00:43] LABS: Glucose Point of Care 144 mg/dl (65-105)
[2021-08-02] MEDS: ACETAMINOPHEN ELIXIR 325 MG/10.15 ML UDC 650 MG FEED TUBE ×3 (05:25→21:11)
[2021-08-02] MEDS: GLYCOPYRROLATE INJ (*SP) 0.2 MG/ML VIAL 0.1 MG IV PUSH ×3 (05:25→21:11)
[2021-08-02 06:06] LABS: Glucose Point of Care 168 mg/dl (65-105)
--- NOTE | 2021-08-02 06:06 | PCNFU ---
Nutrition Follow-Up Complete: Altered GI function related to g tube as evidenced by nausea, vomiting and aspiration. Goal: Patient to meet estimated nutritional needs. Pt. is progressing towards goal. No new goal at this time. Pt current nutrition is Jevity 1.2 at 65 mls per hour over 22 hours per day. Last recorded weight is 60.4 kg. Recommend re-weighing pt. prior to discharge. Bowel Motility: + BM 08/01/2021 Labs Reviewed: Hgb 9.4, Hct 30.7, Na 133, BUN 36, Glu 166 Meds Noted: Albuterol, Eliquis, Proscar, Cymbalta, Novolog, Atrovent neb, Lopressor, Desyrel Skin: Stage IV sacral pressure ulcer Additional Notes: Pt. is on Jevity 1.2 at 65 mls per hour over 22 hours per day providing her with 1176 calories, 79 grams of protein and 1154 mls of water with an 80 ml water flush q4. She is tolerating feeding well with little to no residuals. She is receiving Abdelrahman BID providing an additional 90 calories and 2.5 grams of protein to aid in wound healing. Monitor patients medications, labs, weight and oral intake every Wednesday and Wednesday once feeding starts.
[2021-08-02 06:12] LABS: Basophils Absolute Auto 0.1 K/mm3 (0.0-0.1); Basophils Percent Auto 0.5 % (0.2-1.2); Eosinophils Absolute Auto 0.5 K/mm3 (0-0.3); Eosinophils Percent Auto 3.4 % (0-4.4); Hematocrit 30.6 % (42.0-52.0); Hemoglobin 9.7 g/dL (14.0-18.0); Immature Granulocyte Absolute 0.23 K/mm3 (0.00-0.031); Immature Granulocyte Percent A 1.5 % (0-0.5); Lymphocytes Absolute Auto 1.51 K/mm3 (0.9-3.2); Mean Corpuscular HGB Conc 31.7 g/dl (32-36); Mean Corpuscular Hemoglobin 27.3 pg (26-34); Mean Corpuscular Volume 86.2 fl (80-100); Mean Platelet Volume 9.2 fl (7.4-10.4); Monocytes Absolute Auto 1.1 K/mm3 (0.1-0.6); Neutrophils Absolute Auto 11.7 K/mm3 (1.3-6.7); Neutrophils Percent Auto 77.6 % (45.5-73.1); Platelet Count Result 485 k/mm3 (150-375); Red Blood Count 3.55 M/mm3 (4.6-6.20); Red Cell Distribution Width 17.4 % (11.5-14.5); White Blood Count 15.1 K/mm3 (4.5-10.0)
[2021-08-02 06:17] LABS: Anion Gap 10 mmol/L (8-16); Blood Urea Nitrogen 44 mg/dL (9-20); Calcium 9.6 mg/dL (8.4-10.2); Carbon Dioxide 27 mmol/L (22-30); Chloride 98 mmol/L (98-107); Estimated CRCL calculation 51 ml/min; Estimated Glomerular Filt Rate > 60; Glucose 189 mg/dL (65-110); Potassium 3.9 mmol/L (3.4-5.0); Sodium 135 mmol/L (137-145)
--- NOTE | 2021-08-02 06:39 | PCNSR ---
On 08/02/21, the student, Rosa Ramirez, provided care and completed [facility] documentation on this patient. I have reviewed the student's documentation and agree with the findings.
[2021-08-02] MEDS: TIMOLOL MALEATE 0.25% OP SOLN 5 ML BOTTLE 1 DROP EACH EYE ×2 (09:15→21:11)
[2021-08-02] MEDS: SILVERGEL (ELTA) 45 ML 1 APPLIC TOPICAL (09:15)
[2021-08-02] MEDS: METOPROLOL TARTRATE 25 MG TABLET 75 MG FEED TUBE ×2 (09:16→21:11)
[2021-08-02] MEDS: APIXABAN 2.5 MG TABLET FEED TUBE ×2 (09:16→21:12)
[2021-08-02] MEDS: FINASTERIDE 5 MG TABLET FEED TUBE (09:16)
[2021-08-02] MEDS: DULoxetine HCL 20 MG CAPSULE.DR PO (09:19)
[2021-08-02 12:20] LABS: Glucose Point of Care 157 mg/dl (65-105)
[2021-08-02] MEDS: SODIUM CHLORIDE 0.9% IV 250 ML 100 ML IV CONT (12:54)
[2021-08-02 14:36] LABS: Add Urine Microscopic? YES; Appearance Urine Cloudy (Clear); Bilirubin Urine Negative (Negative); Blood Urine 3+ (Negative); Color Urine Yellow (Yellow); Glucose Urine UA Negative (Negative); Ketones Urine Negative (Negative); Leukocyte Esterase Ur Negative LEU/UL (Negative); Nitrate Urine Negative (Negative); Protein Urine 1+ mg/dL (Negative); RBC Urine >75 /hpf (0-2); Specific Grav Ur 1.017 (1.001-1.035); Urobilinogen Urine Negative mg/dL (<2.0); WBC Urine 0-3 /hpf
[2021-08-02 17:31] LABS: Glucose Point of Care 164 mg/dl (65-105)
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
[2021-08-02] MEDS: LATANOPROST 0.005% OP SOLN 2.5 ML BTL 1 DROP EACH EYE (21:11)
[2021-08-02] MEDS: traZODone HCL 50 MG TABLET FEED TUBE (21:12)
[2021-08-02 23:47] LABS: Glucose Point of Care 180 mg/dl (65-105)
[2021-08-03] VITALS (8 sets, daily range): BP systolic 127–145; BP diastolic 51–77; PULSE 92–117; RESP 16–20; TEMP 36.1–36.9; O2SAT 97–98
[2021-08-03] MEDS: ACETAMINOPHEN ELIXIR 325 MG/10.15 ML UDC 650 MG FEED TUBE ×3 (05:31→20:47)
[2021-08-03] MEDS: GLYCOPYRROLATE INJ (*SP) 0.2 MG/ML VIAL 0.1 MG IV PUSH (05:31)
[2021-08-03 05:57] LABS: Glucose Point of Care 164 mg/dl (65-105)
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
[2021-08-03] MEDS: TIMOLOL MALEATE 0.25% OP SOLN 5 ML BOTTLE 1 DROP EACH EYE ×2 (09:40→20:49)
[2021-08-03] MEDS: DULoxetine HCL 20 MG CAPSULE.DR PO (09:41)
[2021-08-03] MEDS: METOPROLOL TARTRATE 25 MG TABLET 75 MG FEED TUBE ×2 (09:41→20:48)
[2021-08-03] MEDS: APIXABAN 2.5 MG TABLET FEED TUBE ×2 (09:43→20:48)
[2021-08-03] MEDS: SILVERGEL (ELTA) 45 ML 1 APPLIC TOPICAL (09:44)
[2021-08-03] MEDS: FINASTERIDE 5 MG TABLET FEED TUBE (09:44)
[2021-08-03 11:45] LABS: Glucose Point of Care 151 mg/dl (65-105)
[2021-08-03 17:27] LABS: Glucose Point of Care 196 mg/dl (65-105)
[2021-08-03] MEDS: traZODone HCL 50 MG TABLET FEED TUBE (20:48)
[2021-08-03] MEDS: LATANOPROST 0.005% OP SOLN 2.5 ML BTL 1 DROP EACH EYE (20:48)
[2021-08-04] VITALS (8 sets, daily range): BP systolic 112–127; BP diastolic 72–80; PULSE 90–105; RESP 18–20; TEMP 36.2–36.8; O2SAT 96–98
[2021-08-04 00:11] LABS: Glucose Point of Care 177 mg/dl (65-105)
[2021-08-04] MEDS: ACETAMINOPHEN ELIXIR 325 MG/10.15 ML UDC 650 MG FEED TUBE ×3 (06:06→20:14)
[2021-08-04 06:17] LABS: Estimated CRCL calculation 55 ml/min; Estimated Glomerular Filt Rate > 60
[2021-08-04 06:29] LABS: Glucose Point of Care 192 mg/dl (65-105)
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
[2021-08-04 07:42] LABS: Glucose Point of Care 171 mg/dl (65-105)
[2021-08-04] MEDS: METOPROLOL TARTRATE 25 MG TABLET 75 MG FEED TUBE ×2 (09:58→20:13)
[2021-08-04] MEDS: DULoxetine HCL 20 MG CAPSULE.DR PO (09:58)
[2021-08-04] MEDS: FINASTERIDE 5 MG TABLET FEED TUBE (09:58)
[2021-08-04] MEDS: APIXABAN 2.5 MG TABLET FEED TUBE ×2 (09:58→20:14)
[2021-08-04] MEDS: SILVERGEL (ELTA) 45 ML 1 APPLIC TOPICAL (09:59)
[2021-08-04] MEDS: TIMOLOL MALEATE 0.25% OP SOLN 5 ML BOTTLE 1 DROP EACH EYE ×2 (09:59→20:15)
[2021-08-04] MEDS: GLYCOPYRROLATE INJ (*SP) 0.2 MG/ML VIAL IV PUSH (10:00)
[2021-08-04 11:23] LABS: Glucose Point of Care 161 mg/dl (65-105)
[2021-08-04 16:31] LABS: Glucose Point of Care 165 mg/dl (65-105)
--- NOTE | 2021-08-04 17:08 | PM.DS ---
DS: Admitting Diagnosis Discharge Date 08/04/2021 Admitting Diagnosis Aspiration pneumonia DS: Discharge Diagnosis Discharge Diagnosis (1) Aspiration pneumonia: Qualifiers: Aspiration pneumonia type: unspecified Laterality: unspecified laterality Lung location: unspecified part of lung Qualified Code(s): J69.0 - Pneumonitis due to inhalation of food and vomit Code(s): J69.0 - Pneumonitis due to inhalation of food and vomit Status: Acute Assessment and Plan: Patient has been afebrile still having copious amount of secretions greenish in color. Cough has cleared up, continue strict NPO, continue to monitor. Patient was vomiting up his tube feedings and is not very mobile and likely aspirated. Chest x-ray was clear however CTA had ground-glass opacities in all lobes predominantly involving the mid and lower lung zones. COVID 19 negative. Aspiration pneumonia w/ pneumonitis on zosyn with BCX from 07/20/2021 finalized negative. 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 . -Discharge to home today. -This institution does not carry [employer] products and the Jevity plus the supplement given were meant to be the equivalent of his home tube feed dose. -Wound care instructions -Silver gel (Med[employer] SilvaSorb Silver Wound) first and then apply mepilex border and change twice a day -Patient will need to follow up with his primary care physican to check his WBC count every few weeks (2) Atrial fibrillation with rapid ventricular response: Code(s): I48.91 - Unspecified atrial fibrillation Status: Acute Assessment and Plan: Had atrial fibrillation with RVR on admission due to sepsis with lactic acid 4.6 from aspiration pneumonia. TSH normal and electrolytes within range. Rate controlled with metoprolol. Now getting apixaban per g tube. -Continue metoprolol -Continue apixaban (3) Feeding by G-tube: Code(s): Z93.1 - Gastrostomy status Status: Acute Assessment and Plan: Continue tube feeds as patient is NPO due to significant dysphagia causing aspiration. (4) Nausea and vomiting: Code(s): R11.2 - Nausea with vomiting, unspecified Status: Acute Assessment and Plan: Presented with vomiting of g-tube feeds in ED, which was secondary to sepsis from Aspiration pneumonia. This has resolved. (5) Clostridioides difficile infection: Code(s): A49.8 - Other bacterial infections of unspecified site Status: Acute Assessment and Plan: Presented to hospital on fidaxomicin. Treatment completed. -Discontinue fidoxamicin (6) Cervical spine fracture: Code(s): S12.9XXA - Fracture of neck, unspecified, initial encounter Status: Acute Assessment and Plan: S/p accident 11/2020 and C5-C6 fusion, and was on tracheostomy s/p decannulation. With increased upper airway secretions causing cough. Will increase glycopyrrolate to see if it helps with hsi upper ariway secretions. This improved secretions so will give oral glycopyrrolate for discharge. -Glycopyrrolate po for discharge (7) DVT (deep venous thrombosis): Code(s): I82.409 - Acute embolism and thrombosis of unspecified deep veins of unspecified lower extremity Status: Acute Assessment and Plan: No imaging evidence in our records but noted in EMR. Already on apixaban for atrial fibrillation. -Continue apixaban (8) Elevated troponin I level: Code(s): R77.8 - Other specified abnormalities of plasma proteins Status: Acute Assessment and Plan: Likely 2/2 to demand ischemia during initial episode of atrial fibrillation with RVR up to 170s. (9) Anemia: Code(s): D64.9 - Anemia, unspecified Status: Acute Assessment and Plan: Initially normal range due to hemoconcentration. Currently stable. (10) Hyponatremia: Code(s):
[2021-08-04] MEDS: traZODone HCL 50 MG TABLET FEED TUBE (20:14)
[2021-08-04] MEDS: LATANOPROST 0.005% OP SOLN 2.5 ML BTL 1 DROP EACH EYE (20:15)
== END 2021-08-04 23:11 | disposition home health service (06) | DRG 177 ==
LOC: ANHED 22:05 → ANHIMU 07-21 03:24 → ANH2MED 07-31 07:15 → ANHIMU 08-05 10:49
PROVIDERS: Family Medicine; Internal Medicine; Admitting Provider Internal Medicine; Emergency Provider Nurse Practitioner; PCP Internal Medicine; Visit Provider Physician Assistant
DX: J69.0 Pneumonitis due to inhalation of food and vomit (principal); R53.2 Functional quadriplegia; I82.409 Acute embolism and thrombosis of unspecified deep veins of unspecified lower extremity; E87.1 Hypo-osmolality and hyponatremia; E87.2 Acidosis; Z66 Do not resuscitate; A04.72 Enterocolitis due to Clostridium difficile, not specified as recurrent; I24.8 Other forms of acute ischemic heart disease; M86.68 Other chronic osteomyelitis, other site; I48.20 Chronic atrial fibrillation, unspecified; Z20.822 Contact with and (suspected) exposure to COVID-19; Z74.01 Bed confinement status; Z98.1 Arthrodesis status; Z86.73 Personal history of transient ischemic attack (TIA), and cerebral infarction without residual deficits; G62.9 Polyneuropathy, unspecified; Z93.1 Gastrostomy status; Z79.01 Long term (current) use of anticoagulants; D64.9 Anemia, unspecified; R13.10 Dysphagia, unspecified; L89.159 Pressure ulcer of sacral region, unspecified stage
CPT/HCPCS: 36415; 70450; 71045; 71275; 74018; 74177; 80048; 80053; 80202; 81001; 82274; 82565; 82607; 82728; 82746; 82948; 83540; 83550; 83605; 83735; 83880; 84443; 84466; 84484; 85014; 85018; 85025; 85610; 85730; 86140; 87040; 92526; 92610; 93005; 93306; 94640; 96365; 96375; 96376; 97163; 97165; 99285; A9270; C9803; J1650; J1815; J1940; J2543; J3370; J3480; J7030; J7050; Q9967; U0003; U0005

== ENCOUNTER 2021-10-07 17:28 | Emergency (ER) | payer MEDICARE, SELFPAY ==
[2021-10-07 17:44] VITALS: BP 124/63; PULSE 99; RESP 20; TEMP 36.6; O2SAT 100
[2021-10-07] MEDS: LIDOCAINE HCL 2% GEL UROJET 10 ML PKG (17:48)
--- NOTE | 2021-10-07 18:13 | ED.MALEGU ---
HPI - Male Genitourinary General Chief complaint: Urogenital-Male Stated complaint: bleeding around catheter, bed bound Time Seen by Provider: 10/07/21 17:35 Source: family Mode of arrival: EMS Limitations: language barrier and altered mental status History of Present Illness HPI Narrative: 86-year-old male Most of the history is from his daughter Apparently he has been bedbound for nearly a year as a result result of a fall while he [place] walking [place] the [place] which resulted in a cervical spine injury He has a chronic indwelling Lizama catheter, not followed by anyone from urology at this time Today home health was attempting to replace it and as a result of their unsuccessful labors he had urethral trauma and bleeding and for that reason was sent to the ED When I saw him his Lizama had already been skillfully replaced by the nurses and was draining nicely with a little bit of blood-tinged to the urine Related Data Home Medications Medication Instructions Recorded Confirmed timolol maleate 0.25 % eye drops 1 drop EACH EYE Q12H 08/24/19 09/23/21 latanoprost 1 drp EACH EYE HS 07/20/21 09/23/21 insulin aspart U-100 [Novolog 4 unit SUBCUT DIRECTED 07/21/21 09/23/21 Flexpen U-100 Insulin] collagenase clostridium histo. 250 1 applic TOPICAL g 09/23/21 09/23/21 unit/gram topical ointment loratadine 10 mg tablet 10 mg FEEDING TUBE DAILY 09/23/21 09/23/21 metoprolol tartrate 25 mg tablet 50 mg FEEDING TUBE Q12HR tablet 09/23/21 09/23/21 Allergies Allergy/AdvReac Type Severity Reaction Status Date / Time simvastatin Allergy Mild Itching Verified 10/07/21 17:49 Review of Systems Genitourinary: Genitourinary: Reports as per HPI and Reports hematuria Neurologic: Reports focal weakness PMFSH Past Medical History Medical History Aspiration pneumonia Atrial fibrillation Cervical spine fracture CVA (cerebral vascular accident) Neuropathic pain Sacral decubitus ulcer Urinary obstruction Surgical History Surgical History S/P cervical spinal fusion Family History Family History Sibling Patient's brother is in good health Father Family history of liver disease, Onset Age: 52 Patient's father is Mother Family history of liver disease, Onset Age: 67 Patient's mother is Social History Social History Smoking status: Former smoker Tobacco type: pipe Smoking end date: 09/10/1962 Alcohol intake: never Substance use: never Substance use type: does not use Gender identity (if verbalized by the patient): Male Sexual Orientation (if Verbalized by the Patient): Straight or Heterosexual Spiritual care concerns: No Exam Const: General: alert HENMT: Head: no contusions and no hematomas Resp: Effort & Inspection: normal respiratory effort and not labored Cardio: Rate: regular rate GI: GI Palp: Yes Soft to palpation and No Tenderness to palpation present (GI) : Other: Lizama present, there is a little bit of blood that has leaked from the meatus but does not seem to be any active ongoing bleeding right now Course Course Emergency Course: Catheter placed by nursing, discussed with family, okay to go back home, can follow-up with in the office Vital Signs Vital signs: Vital Signs Temperature 36.6 C 10/07/21 17:44 Pulse Rate 99 10/07/21 17:44 Respiratory Rate 20 10/07/21 17:44 Blood Pressure 124/63 10/07/21 17:44 Pulse Oximetry 100 10/07/21 17:44 Temperature 36.6 C 10/07/21 17:44 Pulse Rate 99 10/07/21 17:44 Respiratory Rate 20 10/07/21 17:44 Blood Pressure 124/63 10/07/21 17:44 Pulse Oximetry 100 10/07/21 17:44 Discharge Plan Discharge Clinical Impression: Traumatic injury of urethra Patient
[2021-10-07 21:33] VITALS: BP 126/59; PULSE 92; RESP 18; O2SAT 98
== END 2021-10-07 21:11 | disposition home or self-care (01) ==
PROVIDERS: Emergency Provider Emergency Medicine; PCP Internal Medicine
DX: S37.39XA Other injury of urethra, initial encounter (principal); I48.91 Unspecified atrial fibrillation; S14.109S Unspecified injury at unspecified level of cervical spinal cord, sequela; S12.9XXS Fracture of neck, unspecified, sequela; W19.XXXS Unspecified fall, sequela; Z86.73 Personal history of transient ischemic attack (TIA), and cerebral infarction without residual deficits; Z98.1 Arthrodesis status; Z87.891 Personal history of nicotine dependence; Z74.01 Bed confinement status; Z79.01 Long term (current) use of anticoagulants; Y84.6 Urinary catheterization as the cause of abnormal reaction of the patient, or of later complication, without mention of misadventure at the time of the procedure; X58.XXXA Exposure to other specified factors, initial encounter
CPT/HCPCS: 51702; 99283

== ENCOUNTER 2021-11-15 14:35 | Emergency (ER) | payer MEDICARE, SELFPAY ==
[2021-11-15] VITALS (8 sets, daily range): BP systolic 109–133; BP diastolic 72–90; PULSE 78–115; RESP 14–18; TEMP 36.6–36.9; O2SAT 97–100
[2021-11-15 15:54] LABS: Basophils Absolute Auto 0.1 K/mm3 (0.0-0.1); Basophils Percent Auto 0.5 % (0.2-1.2); Eosinophils Absolute Auto 0.3 K/mm3 (0-0.3); Eosinophils Percent Auto 2.9 % (0-4.4); Hematocrit 35.8 % (42.0-52.0); Hemoglobin 10.7 g/dL (14.0-18.0); Immature Granulocyte Absolute 0.27 K/mm3 (0.00-0.031); Immature Granulocyte Percent A 2.3 % (0-0.5); Lymphocytes Absolute Auto 1.53 K/mm3 (0.9-3.2); Lymphocytes Percent Auto 13.2 % (18.3-44.2); Mean Corpuscular HGB Conc 29.9 g/dl (32-36); Mean Corpuscular Hemoglobin 26.2 pg (26-34); Mean Corpuscular Volume 87.5 fl (80-100); Mean Platelet Volume 9.7 fl (7.4-10.4); Monocytes Absolute Auto 1.2 K/mm3 (0.1-0.6); Monocytes Percent Auto 9.9 % (2.6-8.5); Neutrophils Absolute Auto 8.3 K/mm3 (1.3-6.7); Neutrophils Percent Auto 71.2 % (45.5-73.1); Platelet Count Result 355 k/mm3 (150-375); Red Blood Count 4.09 M/mm3 (4.6-6.20); Red Cell Distribution Width 16.8 % (11.5-14.5); White Blood Count 11.6 K/mm3 (4.5-10.0)
[2021-11-15 15:55] LABS: Lactic Acid Reflex 1.6 mmol/L (0.7-2.1)
[2021-11-15 15:56] LABS: Add Urine Microscopic? YES; Appearance Urine Clear (Clear); Bilirubin Urine Negative (Negative); Color Urine Yellow (Yellow); Glucose Urine UA Negative (Negative); Ketones Urine Negative (Negative); Leukocyte Esterase Ur 2+ LEU/UL (Negative); Mucus Urine Rare /lpf; Nitrate Urine Negative (Negative); Protein Urine Negative (Negative); Specific Grav Ur 1.013 (1.001-1.035); Urobilinogen Urine Negative mg/dL (<2.0)
[2021-11-15 15:57] LABS: Alanine Aminotransferase 20 U/L (4-50); Albumin Level 3.9 g/dL (3.5-5.1); Alkaline Phosphatase 106 U/L (38-126); Anion Gap 10 mmol/L (8-16); Aspartate Amino Transferase 31 U/L (17-59); Bilirubin,Total 0.4 mg/dL (0.2-1.3); Blood Urea Nitrogen 36 mg/dL (9-20); Calcium 9.3 mg/dL (8.4-10.2); Carbon Dioxide 25 mmol/L (22-30); Chloride 103 mmol/L (98-107); Estimated CRCL calculation 69 ml/min; Estimated Glomerular Filt Rate > 60; Glucose 122 mg/dL (65-110); Potassium 4.7 mmol/L (3.4-5.0); Sodium 138 mmol/L (137-145)
[2021-11-15 16:01] LABS: Blood Urine Negative (Negative)
--- NOTE | 2021-11-15 16:05 | ED.GENADULT ---
HPI - General Adult General Chief complaint: Urogenital-Male Stated complaint: Urinary tract infection symptoms Time Seen by Provider: 11/15/21 14:51 History of Present Illness HPI narrative: Patient is an 86-year-old male who presents ER with concerns for UTI. Patient's daughter reports home health sent a urinalysis on the patient on 11/03 and 11/08. It resulted in growing out Pseudomonas aeruginosa. Is not susceptible to any oral medications and it was recommended she come in to have the patient treated with IV antibiotics. Patient has not been having any fevers or chills. She reports that occasionally his mental status will wax and wane but that has been a chronic issue since he suffered a C-spine fracture. He is currently acting like himself and in no distress today. Urine is clear not cloudy/malodorous. Patient take scheduled Tylenol so metallurgical engineering technician is concerned fever cannot be mounted. Patient has a chronic indwelling Lizama, she reports there is been no mention that he may have colonization of the bladder or Lizama with the bacteria. Related Data Home Medications Medication Instructions Recorded Confirmed timolol maleate 0.25 % eye drops 1 drop EACH EYE Q12H 08/24/19 10/29/21 latanoprost 1 drp EACH EYE HS 07/20/21 10/29/21 insulin aspart U-100 [Novolog 4 unit SUBCUT DIRECTED 07/21/21 10/29/21 Flexpen U-100 Insulin] collagenase clostridium histo. 250 1 applic TOPICAL g 09/23/21 10/29/21 unit/gram topical ointment loratadine 10 mg tablet 10 mg FEEDING TUBE DAILY 09/23/21 10/29/21 metoprolol tartrate 25 mg tablet 50 mg FEEDING TUBE Q12HR tablet 09/23/21 10/29/21 Allergies Allergy/AdvReac Type Severity Reaction Status Date / Time simvastatin Allergy Mild Itching Verified 10/29/21 09:15 Review of Systems Review of Systems: ROS unobtainable: Yes unobtainable due to medical condition (History obtained from metallurgical engineering technician.) PMFSH Past Medical History Medical History Aspiration pneumonia Atrial fibrillation Cervical spine fracture CVA (cerebral vascular accident) Neuropathic pain Sacral decubitus ulcer Urinary obstruction Surgical History Surgical History S/P cervical spinal fusion Family History Family History Sibling Patient's brother is in good health Father Family history of liver disease, Onset Age: 52 Patient's father is Mother Family history of liver disease, Onset Age: 67 Patient's mother is Social History Social History Smoking status: Former smoker Tobacco type: pipe Smoking end date: 09/10/1962 Alcohol intake: never Substance use: never Substance use type: does not use Gender identity (if verbalized by the patient): Male Sexual Orientation (if Verbalized by the Patient): Straight or Heterosexual Spiritual care concerns: No Exam Narrative: GENERAL: Well-appearing, well-nourished, and in no acute distress. HEAD: Normocephalic, atraumatic. EYES: PERRL and EOMI. ENT: Mucous membranes moist. CHEST: Clear to auscultation. No respiratory distress. HEART: Regular rate and rhythm. Normal peripheral pulses. ABDOMEN: Soft, nontender, nondistended. 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 Chronic weakness left lower extremity. Purposeful movements with normal strength right upper extremity. SKIN: Warm, dry, no rash. NEURO: Awake and alert, follows commands and responds appropriately. Course Reevaluation(s) Reevaluation #1: Patient Pseudomonas infection is susceptible to cefepime, ceftazidime, gentamicin, imipenem, meropenem, Zosyn, and tobramycin. Patient has history of C. difficile in the past. He has had infections of urine with Klebsiella pneumonia as well as VRE. Date: 11/15/21 Time:
[2021-11-15 16:12] LABS: Anisocytosis 1+ (NORMAL); Hypochromasia 1+ (NORMAL); Platelet Estimate Adequate (Adequate)
[2021-11-15 16:13] LABS: Stomatocytes 1+ (NORMAL)
--- NOTE | 2021-11-15 19:43 | PC.NURSE ---
called [facility] at 1918 to request transport. ETA [id number] called [facility] at 1924 to request transport. called back at 1930 and declined called [facility] at 1934 to request transport. Accepted and unit on the way from [place] called [facility] at 1940 to cancel.
[2021-11-15] MEDS: METOPROLOL TARTRATE 50 MG TAB PO (19:54)
--- NOTE | 2021-11-15 19:58 | PC.NURSE ---
@19:00 abt completed. Charge nurse notified and transportation is being scheduled.
--- NOTE | 2021-11-15 20:02 | PC.NURSE ---
@19:35 in pts room. Dtr reports pt staing he needs some air. HR between 106-140's. History of Afib and on Metoprolol 50mg bid per daughter due at this time. EDP notified. Order for Metoprolol 50mg x1 dose.
--- NOTE | 2021-11-15 20:12 | PC.NURSE ---
2013 - Pt's nurse informed ED MD Dr. Jarvis that pt HR 130s-140s, in afib c hx of same. Daughter at bedside, reports to this RN that when they check pt's BP at home, pulse is around 90 or 100. She is unsure if pt is always in a fib. ED MD Dr. Jarvis ordered home dose of pt's metoprolol to be given. EMS arrived to transport pt home, and as pt's hr still elevated, unable to d/c at this time. Pt's daughter agreeable to have pt remain in ED for now. [facility] notified and transport cancelled at this time.
--- NOTE | 2021-11-15 21:23 | PC.NURSE ---
Per ED [address] Dr. for pt to be d/c home. Will call EMS for transport.
--- NOTE | 2021-11-15 21:24 | PC.NURSE ---
[facility] ETA [id number].
--- NOTE | 2021-11-15 21:24 | PC.NURSE ---
called [facility] to request transport. ETA [id number]
--- NOTE | 2021-11-15 21:24 | PC.NURSE ---
[Per EDP pt is stable to be discharged to home. Charge nurse present and transportation is being scheduled at this time. Dtr has been made aware.
[2021-11-15] MEDS: APIXABAN 2.5 MG TABLET PO (21:35)
== END 2021-11-15 22:32 | disposition home or self-care (01) ==
PROVIDERS: Emergency Provider Emergency Medicine; PCP Internal Medicine
DX: N39.0 Urinary tract infection, site not specified (principal); I48.91 Unspecified atrial fibrillation; Z86.73 Personal history of transient ischemic attack (TIA), and cerebral infarction without residual deficits; Z79.01 Long term (current) use of anticoagulants; Z79.4 Long term (current) use of insulin; Z98.1 Arthrodesis status
CPT/HCPCS: 36415; 80053; 81001; 83605; 85025; 87077; 87086; 87186; 96365; 99284; A9270; J0713

== ENCOUNTER 2021-12-18 05:17 | Inpatient (IN) | payer MEDICARE, SELFPAY ==
[2021-12-18] VITALS (27 sets, daily range): BP systolic 97–137; BP diastolic 44–99; PULSE 82–167; RESP 18–47; TEMP 36.1–37.2; O2SAT 82–100; BMI 22.5; BMI 21.6
--- NOTE | ~2021-12-18 | XR_ITS ---
EXAMINATION: XR abdomen/kub 1V INDICATION: Abdominal distention TECHNIQUE: Supine views of the abdomen were obtained on 2 radiographs. COMPARISON: 07/20/2021 FINDINGS: The bowel gas pattern is nonspecific. No dilated loops of bowel are identified. A gastrosto my is noted. There is an IVC filter. A likely suprapubic catheter is present in the bladder. IMPRESSION: 1. Nonspecific bowel gas pattern. Consider further evaluation with obstructive series or CT. Reviewed, dictated and finalized at location F.
--- NOTE | ~2021-12-18 | XR_ITS ---
EXAMINATION: XR chest 1V portable EXAM DATE: 12/22/2021 06:02 INDICATION: Pneumonia. TECHNIQUE: Portable AP frontal chest x-ray was obtained. Comparison is made to prior examination from 12/18/2021. FINDINGS: There is cardiomegaly. Ill-defined bibasilar airspace disease has developed, could be edema or pneumonia. Please clinically correlate. No pneumothorax or pleural effusion. There are bony degen erative changes. Cervical fusion hardware. IMPRESSION: 1. Development of bibasilar edema or pneumonia. 2. Cardiomegaly unchanged. Reviewed, dictated and finalized at location A.
--- NOTE | ~2021-12-18 | CT_ITS ---
EXAMINATION: CT diagnostic chest w con DATE: 12/18/2021 07:17 INDICATION: Hemoptysis and leukocytosis TECHNIQUE: Transaxial computed tomographic images of the chest were obtained after the administration of 75 cc of Omnipaque 350 intravenous contrast. The dose-length product (DLP) was 200.69 mGy-cm. Ite rative reconstruction was used. COMPARISON: 07/20/2021 FINDINGS: Respiratory motion artifact limits the examination. There are patchy airspace opacities of the lingula and lower lobes. No pleural effusion or pneumothorax is identified. Cardiomegaly is noted . There are no pathologically enlarged thoracic lymph nodes. There is fusiform dilation of the ascend ing aorta which measures up to 4.1 cm. There are bridging osteophytes at multiple levels in the spine , consistent with diffuse idiopathic skeletal hyperostosis (DISH). IMPRESSION: 1. Patchy airspace opacities of the lingula and lower lobes, likely atelectasis and pneumonia. Reviewed, dictated and finalized at location A.
--- NOTE | ~2021-12-18 | XR_ITS ---
EXAMINATION: XR chest 1V portable INDICATION: Hemoptysis TECHNIQUE: Portable AP chest at 0550 hours COMPARISON: 07/25/2021 FINDINGS: There are minimal airspace opacities of the left lung base. There is no pleural effusion or pneumothorax. Cardiomegaly is noted. IMPRESSION: 1. Minimal left basilar airspace opacity, consistent with atelectasis versus pneumonia. Reviewed, dictated and finalized at location A. IMPRESSION: 1. Minimal left basilar airspace opacity, consistent with atelectasis versus pn eumonia.
--- NOTE | ~2021-12-18 | XR_ITS ---
EXAMINATION: XR barium swallow modified DATE: 12/21/2021 10:23 INDICATION: Aspiration. TECHNIQUE: The patient was given barium-containing material of multiple consistencies to swallow by t rosita speech pathologist while I performed fluoroscopy. Fluoroscopy exposure time was 3.0 minutes. The n umber of fluoroscopy images saved to the PACS was 1. Dose-area product was 2.3 Gy-cm^2. FINDINGS: There was reduced lingual movement. There was reduced laryngeal elevation, laryngeal adduction, tongu e base retraction, and pharyngeal squeeze. There is mild vallecular residue and trace piriform sinus residue and pharyngeal wall residue. Laryngeal penetration and aspiration were noted with thin liquid s with cough. IMPRESSION: 1. Aspiration of thin liquids. 2. Please refer to the speech therapy report for recommendations. Reviewed, dictated and finalized at location A.
--- NOTE | ~2021-12-18 | XR_ITS ---
EXAMINATION: XR chest 1V portable DATE: 12/24/2021 11:12 INDICATION: Pneumonia. TECHNIQUE: A single frontal view of the chest was obtained. COMPARISON: Chest single view 12/22/2021, chest CT 12/18/2021 FINDINGS: There are airspace opacities in the lower lung zones. No pleural effusion or pneumothorax. Cardiomegaly is noted. IMPRESSION: 1. Stable airspace opacities in the lower lung zones, consistent with atelectasis versus pneumonia. 2. Cardiomegaly. Reviewed, dictated and finalized at location B. IMPRESSION: 1. Stable airspace opacities in the lower lung zones, consistent with atelectas is versus pneumonia. 2. Cardiomegaly.
--- NOTE | 2021-12-18 05:48 | ECG_ITS ---
Measurements Intervals [place] Rate: 147 P: IA: 0 QRS: 83 QRSD: 88 T: 16 QT: 301 QTc: 471 Interpretive Statements ATRIAL FIBRILLATION WITH RAPID VENTRICULAR RESPONSE NONSPECIFIC T-WAVE ABNORMALITY ABNORMAL RHYTHM ECG COMPARED TO ECG 07/20/2021 19:15:19 T-WAVE ABNORMALITY NOW PRESENT Electronically Signed On 12-18-2021 16:49:10 CDT by Froylan Schultz M.D.
--- NOTE | 2021-12-18 05:51 | ED.GENADULT ---
HPI - General Adult General Chief complaint: Upper Respiratory Infection Stated complaint: COUGHING UP BLOOD Source: family and EMS Mode of arrival: EMS Limitations: no limitations History of Present Illness HPI narrative: 86-year-old male brought in by ambulance and accompanied by his daughter. He presents emergency room secondary to coughing up blood. States he went to bed in his normal state of health and woke up blood in his mouth. Family initially thought maybe was coming from his teeth and try to clear it out with gauze but he continued to have the blood. He continued to have coughing intermittently as well and the colic the blood was probably coming from his lungs. Patient is a cervical spinal cord injury patient. He is completely bedridden. He is got a history of chronic atrial fibrillation is on Eliquis. She had no blood in his stool or his urine. He denies any chronic respiratory issues. Related Data Home Medications Medication Instructions Recorded Confirmed timolol maleate 0.25 % eye drops 1 drop EACH EYE Q12H 08/24/19 10/29/21 latanoprost 1 drp EACH EYE HS 07/20/21 10/29/21 insulin aspart U-100 [Novolog 4 unit SUBCUT DIRECTED 07/21/21 10/29/21 Flexpen U-100 Insulin] collagenase clostridium histo. 250 1 applic TOPICAL g 09/23/21 10/29/21 unit/gram topical ointment loratadine 10 mg tablet 10 mg FEEDING TUBE DAILY 09/23/21 10/29/21 metoprolol tartrate 25 mg tablet 50 mg FEEDING TUBE Q12HR tablet 09/23/21 10/29/21 baclofen mg 12/18/21 melatonin 5 mg FEEDING TUBE HS 12/18/21 Allergies Allergy/AdvReac Type Severity Reaction Status Date / Time simvastatin Allergy Mild Itching Verified 12/18/21 05:56 Review of Systems Review of Systems: CONSTITUTIONAL: Denies fever, chills, or sweats. EYES: Denies visual changes, redness, or discharge. ENT: Denies rhinorrhea, congestion, sore throat, or otalgia. CARDIOVASCULAR: Denies chest pain, palpitations, or edema. RESPIRATORY: Patient is having mild cough with some hemoptysis GASTROINTESTINAL: Denies abdominal pain, nausea, vomiting, or diarrhea. GENITOURINARY: Denies dysuria or hematuria. SKIN: Denies rash or itching. MUSCULOSKELETAL: Denies back pain, joint pain, or myalgia. NEUROLOGIC: Secondary to his spinal cord injury patient is bedbound and paraplegic PSYCHIATRIC: Denies anxiety or depression. [facility] Past Medical History Medical History Aspiration pneumonia Atrial fibrillation Cervical spine fracture CVA (cerebral vascular accident) Neuropathic pain Sacral decubitus ulcer Urinary obstruction Surgical History Surgical History S/P cervical spinal fusion Family History Family History Sibling Patient's brother is in good health Father Family history of liver disease, Onset Age: 52 Patient's father is Mother Family history of liver disease, Onset Age: 67 Patient's mother is Social History Social History Smoking status: Former smoker Tobacco type: pipe Smoking end date: 09/10/1962 Alcohol intake: never Substance use: never Substance use type: does not use Gender identity (if verbalized by the patient): Male Sexual Orientation (if Verbalized by the Patient): Straight or Heterosexual Spiritual care concerns: No Exam Narrative: APPEARANCE: Well appearing, no pain or distress, well-nourished. Head normocephalic and atraumatic. EYES: PERRLA/EOMI, conjunctivae very clear. NOSE: Normal with no drainage EARS:TMS clear Kesha Wiseman, with good light reflex. THROAT: Pharynx clear, no exudate. Fresh blood and some clots noted in the oral cavity NECK: Supple. No adenopathy, no masses. RESPIRATORY: Airway patent, respirations nonlabored. Clear to auscultation bilaterally, no rale
[2021-12-18 06:22] LABS: Basophils Absolute Auto 0.1 K/mm3 (0.0-0.1); Basophils Percent Auto 0.3 % (0.2-1.2); Eosinophils Absolute Auto 0.7 K/mm3 (0-0.3); Eosinophils Percent Auto 2.1 % (0-4.4); Hematocrit 37.2 % (42.0-52.0); Immature Granulocyte Absolute 0.51 K/mm3 (0.00-0.031); Immature Granulocyte Percent A 1.6 % (0-0.5); Lymphocytes Absolute Auto 4.57 K/mm3 (0.9-3.2); Lymphocytes Percent Auto 14.5 % (18.3-44.2); Mean Corpuscular HGB Conc 29.6 g/dl (32-36); Mean Corpuscular Hemoglobin 26.4 pg (26-34); Mean Corpuscular Volume 89.2 fl (80-100); Mean Platelet Volume 9.9 fl (7.4-10.4); Monocytes Absolute Auto 1.7 K/mm3 (0.1-0.6); Monocytes Percent Auto 5.3 % (2.6-8.5); Neutrophils Percent Auto 76.2 % (45.5-73.1); Platelet Count Result 427 k/mm3 (150-375); Red Blood Count 4.17 M/mm3 (4.6-6.20); Red Cell Distribution Width 17.2 % (11.5-14.5); White Blood Count 31.5 K/mm3 (4.5-10.0)
[2021-12-18 06:29] LABS: Alanine Aminotransferase 18 U/L (4-50); Albumin Level 4.6 g/dL (3.5-5.1); Alkaline Phosphatase 119 U/L (38-126); Anion Gap 14 mmol/L (8-16); Aspartate Amino Transferase 29 U/L (17-59); Bilirubin,Total 0.5 mg/dL (0.2-1.3); Blood Urea Nitrogen 51 mg/dL (9-20); Calcium 9.5 mg/dL (8.4-10.2); Carbon Dioxide 23 mmol/L (22-30); Chloride 98 mmol/L (98-107); Estimated CRCL calculation 50 ml/min; Estimated Glomerular Filt Rate > 60; Glucose 195 mg/dL (65-110); Potassium 5.3 mmol/L (3.4-5.0); Sodium 135 mmol/L (137-145)
[2021-12-18 06:30] LABS: INR 1.2; Prothrombin Time 15.2 Seconds (11.1-14.7)
[2021-12-18 06:31] LABS: Partial Thromboplastin Time 37.7 SECONDS (22.3-36.8)
[2021-12-18 06:32] LABS: Anisocytosis 1+ (NORMAL); Platelet Estimate Adequate (Adequate); Stomatocytes 1+ (NORMAL)
[2021-12-18] MEDS: SODIUM CHLORIDE 0.9% IV 500 ML 999 ML IV CONT (07:21)
[2021-12-18 07:26] LABS: Lactic Acid Reflex 4.5 mmol/L (0.7-2.1)
[2021-12-18] MEDS: dilTIAZem 100 MG/100 ML 100 MG/100 ML BAG IV CONT ×2 (07:31→23:50)
[2021-12-18] MEDS: dilTIAZem HCl INJ 25 MG/5 ML VIAL 10 MG IV PUSH (07:31)
[2021-12-18 07:33] LABS: Appearance Urine Clear (Clear); Bilirubin Urine Negative (Negative); Blood Urine 2+ (Negative); Color Urine Yellow (Yellow); Glucose Urine UA Negative (Negative); Ketones Urine Negative (Negative); Leukocyte Esterase Ur 3+ LEU/UL (Negative); Nitrate Urine Negative (Negative); Protein Urine Trace mg/dL (Negative); Specific Grav Ur 1.015 (1.001-1.035); Urobilinogen Urine 0.2 mg/dL (<2.0)
[2021-12-18 07:36] LABS: Add Urine Microscopic? YES
[2021-12-18 07:37] LABS: WBC Urine >75 /hpf
[2021-12-18 07:38] LABS: Bacteria Urine Trace /hpf; Squamous Epithelial Cell Urine Rare /hpf (Few)
--- NOTE | 2021-12-18 08:42 | ADMGEN ---
This patient, Geraldo Paniagua, was admitted to IMU Room 210-01. Patient/family oriented to hospital policies and general routines including ID bracelet, bed and alarms, visiting hours, pain management, procedures, bathroom and other care routines, personal items, smoking policy, room service/diet, and visiting hours. Information on how to activate the Rapid Response Team has been discussed. Patient/Family are encouraged to report perceived risks to care and to ask questions if they do not understand what they are told or what they should do.
[2021-12-18 09:08] LABS: Hematocrit 30.5 % (42.0-52.0); Hemoglobin 9.7 g/dL (14.0-18.0); Mean Corpuscular HGB Conc 31.8 g/dl (32-36); Mean Corpuscular Hemoglobin 26.5 pg (26-34); Mean Corpuscular Volume 83.3 fl (80-100); Mean Platelet Volume 9.5 fl (7.4-10.4); Platelet Count Result 327 k/mm3 (150-375); Red Blood Count 3.66 M/mm3 (4.6-6.20); Red Cell Distribution Width 16.9 % (11.5-14.5); White Blood Count 24.5 K/mm3 (4.5-10.0)
[2021-12-18 09:18] LABS: Alanine Aminotransferase 19 U/L (4-50); Albumin Level 3.9 g/dL (3.5-5.1); Alkaline Phosphatase 98 U/L (38-126); Anion Gap 10 mmol/L (8-16); Aspartate Amino Transferase 25 U/L (17-59); Bilirubin,Total 0.3 mg/dL (0.2-1.3); Blood Urea Nitrogen 47 mg/dL (9-20); Calcium 8.7 mg/dL (8.4-10.2); Carbon Dioxide 22 mmol/L (22-30); Chloride 101 mmol/L (98-107); Estimated CRCL calculation 50 ml/min; Estimated Glomerular Filt Rate > 60; Glucose 215 mg/dL (65-110); Magnesium 2.1 mg/dL (1.6-2.3); Potassium 4.8 mmol/L (3.4-5.0); Sodium 133 mmol/L (137-145)
[2021-12-18 09:19] LABS: Lactic Acid Reflex 2.8 mmol/L (0.7-2.1)
[2021-12-18] MEDS: SODIUM CHLORIDE 0.9% IV 1,000 ML 100 ML IV CONT ×2 (09:33→22:20)
[2021-12-18 10:06] LABS: Reflex Lactic Acid Yes or No Add Lactic
--- NOTE | 2021-12-18 13:10 | PM.IMHP ---
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 According the daughter the patient started coughing up blood was coming up with same time. She stated that he went to bed at his normal state however when he woke up they found blood in his mouth. Family evidently Haacke does not with gauze and held pressure however the blood did not seem to stop. They brought him to the ED and his mouth was irrigated and cleaned and the bleeding had stopped. Patient is on Eliquis for AFib that started in November. He denies any chest pain, shortness of breath, nausea and vomiting. Daughter stated patient has on and off diarrhea and constipation depending on the medication he takes. It was also noted the patient did have a urine culture recently that did show Pseudomonas. Treatment was never prescribed. Patient does have a chronic Lizama due to retention issues. According the family the patient had tried other methods of urination however retention always seemed to be a problem and with a pressure ulcer on his coccyx the filter would be better just to keep the Lizama in. He has not had any sweats, fevers, chills. Patient denies any pain, headaches, dizziness. Currently patient receives bolus feedings of Isosource through his G-tube. Patient is being admitted to the hospital service under and patient. Review of Systems Review of Systems: All systems reviewed & are unremarkable except as noted in HPI and below PMFSH Past Medical History Medical History Aspiration pneumonia Atrial fibrillation Cervical spine fracture CVA (cerebral vascular accident) Neuropathic pain Sacral decubitus ulcer Urinary obstruction Surgical History Surgical History S/P cervical spinal fusion Family History Family History Sibling Patient's brother is in good health Cancer Father Patient's father is Family history of liver disease, Onset Age: 52 Mother Patient's mother is Family history of liver disease, Onset Age: 67 Social History Social History (Updated 12/18/21 @ 13:24 by POWER Carl[place]) Social History: Patient lives with family and is a paraplegic. Patient is a full code and his surrogate is his and daughter. Smoking status: Never smoker Tobacco type: pipe Smoking end date: 09/10/1962 Alcohol intake: never Substance use: never Substance use type: does not use Living arrangements: with family Occupation/Education: retired Gender identity (if verbalized by the patient): Male Sexual Orientation (if Verbalized by the Patient): Straight or Heterosexual Spiritual care concerns: No Meds Home Medications and Allergies Home Medications Medication Instructions Recorded Confirmed Type timolol maleate 0.25 % eye drops 1 drop EACH EYE Q12H 08/24/19 12/18/21 History latanoprost 1 drp EACH EYE HS 07/20/21 12/18/21 History finasteride 5 mg tablet 5 mg FEEDING TUBE DAILY #30 tablet 08/22/21 12/18/21 Rx trazodone 50 mg tablet 50 mg FEEDING TUBE HS #30 tablet 08/22/21 12/18/21 Rx duloxetine 20 mg capsule,delayed 20 mg PO DAILY #90 cap 08/26/21 12/18/21 Rx release apixaban 2.5 mg tablet 2.5 mg FEEDING TUBE Q12H 30 Days 08/27/21 12/18/21 Rx #180 tablet lactose-reduced food-fiber 0.07 5 ea FEEDING TUBE DAILY #6000 ml 09/22/21 12/18/21 Rx gram-1.5 kcal/mL liquid for tube feed loratadine 10 mg tablet 10 mg FEEDING TUBE HS 09/23/21 12/18/21 History metoprolol tartrate 25 mg tablet 50 mg FEEDING TUBE Q12HR
[2021-12-18 13:15] LABS: Appearance Urine Clear (Clear); Bilirubin Urine Negative (Negative); Blood Urine 2+ (Negative); Color Urine Yellow (Yellow); Glucose Urine UA Negative (Negative); Ketones Urine Negative (Negative); Leukocyte Esterase Ur 2+ LEU/UL (Negative); Nitrate Urine Positive (Negative); Protein Urine Negative (Negative); Specific Grav Ur <= 1.005 (1.001-1.035); Urobilinogen Urine 0.2 mg/dL (<2.0); pH Urine 5.5 (5.0-9.0)
[2021-12-18 13:39] LABS: Bacteria Urine Trace /hpf; Mucus Urine Rare /lpf; WBC Urine >75 /hpf
[2021-12-18 13:45] LABS: Add Urine Microscopic? YES
--- NOTE | 2021-12-18 15:57 | PM.CNCAR ---
Assessment and Plan Assessment and plan (1) Atrial fibrillation with rapid ventricular response: Code(s): I48.91 - Unspecified atrial fibrillation Status: Acute Assessment and Plan: Patient's atrial fibrillation with rapid ventricular response is worsened and brought on by underlying infection. Continue diltiazem drip as well as metoprolol. I do want make sure that he has received his p.o. dose metoprolol to this point as he may be going to some beta-kaley withdrawal if not already received. Increase diltiazem drip as needed to achieve a heart rate of less than 120 B p.m.. As his underlying infection is treated and improved, his heart rate will likely improve without further treatment. Hold anticoagulation for now given his concern for hemoptysis and anemia (2) UTI (urinary tract infection): Code(s): N39.0 - Urinary tract infection, site not specified Status: Acute Assessment and Plan: Antibiotics to be given (3) Cervical spine fracture: Code(s): S12.9XXA - Fracture of neck, unspecified, initial encounter Status: Acute Assessment and Plan: Paralysis below neck (4) Hemoptysis: Code(s): R04.2 - Hemoptysis Status: Acute Assessment and Plan: Holding anticoagulation for now History of Present Illness History of Present Illness Consult date/time: 12/18/21 15:57 Requesting physician: Baltazar Severino MD Consult reason: atrial fibrillation Reason For Visit: Hemoptysis, A Fib w/ RVR, Leukocytosis, Quadrapleg Narrative: Date of service 12/18/2021 Reason consultation: Atrial fibrillation Requesting provider: Dr. Severino History patient is a 86-year-old male who I saw last year because of atrial fibrillation with rapid ventricular response. He has chronic atrial fibrillation dating back to 2016 as well as mitral regurgitation. No significantly over the past year or so he fell and had trauma to his face and cervical spine resulting in paralysis. He no status post tracheostomy and is now decannulated. He had recurrent C diff colitis and had prolonged hospital stays at [facility]. I saw him in a similar setting last year due to elevated troponin and atrial fibrillation with rapid ventricular response. It was thought at that time that his atrial fibrillation with rapid ventricular response was related to a combination of worsening anemia as well as infection. He was started back on some low-dose metoprolol and his drip was increased. Patient was brought into the hospital yesterday because of consult concern for aspiration pneumonia and urinary tract infection. According to the daughter the patient had been coughing up blood. Urine culture shows Pseudomonas. He has an elevated white count at presentation. Review of Systems Review of Systems: All systems reviewed & are unremarkable except as noted in HPI and below Constitutional: Comments: Paralysis below neck Eyes: Eyes: Denies blurry vision ENT: Reports Normal hearing present Cardiovascular: Cardiovascular: Denies chest pain Respiratory: Respiratory: Reports hemoptysis and Denies dyspnea Gastrointestinal: Gastrointestinal: Reports constipation and Reports diarrhea Genitourinary: Genitourinary: Denies dysuria Musculoskeletal: Musculoskeletal: Denies joint swelling Comments: Contractures noted Integumentary/Breasts: Skin/Breast: Reports wounds Neurologic: Denies headache(s) Psychiatric: Psychiatric: Denies anxiety Endocrine: Endocrine: Denies excessive sweating Hematologic/Lymphatic: Hematologic/Lymphatic: Reports easy bleeding Allergic/Immunologic: Allergic/Immunologic: Denies GI upset with certain foods PMFSH Past Medical History Medical History Aspiration pneumonia Atrial fibrillation Cervical spine fracture CVA (cerebral vascular accident) Neuropathic pain Sacral decubitus ulcer Urinary obstruction Surgical History Surgical
[2021-12-18] MEDS: METOPROLOL TARTRATE 50 MG TAB PO (16:00)
[2021-12-18] MEDS: TOLNAFTATE 1% POWDER 45 GM BTL 1 APPLIC TOPICAL ×2 (16:06→20:43)
[2021-12-18] MEDS: SILVERGEL (ELTA) 45 ML 1 APPLIC TOPICAL (16:06)
[2021-12-18] MEDS: FERROUS SULFATE LIQUID 325 MG/7.4 ML ELIXIR 324 MG FEED TUBE (16:06)
--- NOTE | 2021-12-18 18:56 | PM.CNPUL ---
Assessment and Plan Assessment and plan (1) Pneumonia: Code(s): J18.9 - Pneumonia, unspecified organism Status: Acute Assessment and Plan: He has community acquired pneumonia with a chest CT showing scattered infiltrates in the bases, with crackles and rhonchi in the left base. He has difficulty clearing secretions, and could benefit from a vibratory valve to help with clearance. Agree with empiric antibiotics. He does not need supplemental O2 while awake. he has problems with his swallowing, has had Speech Therapy in the past. I do not have records in our system showing that he had any Speech Therapy here. PLAN : Speech and Swallow evaluation, make sure this is not recurrent aspiration. NPO after midnight for the study. Add Cornet valve, pulmozyme as a mucolytic, continue imipenem-cilastin for suspected pneumonia. Watch for any recurrent hemoptysis. This is probably from the pneumonia. (2) Hemoptysis: Code(s): R04.2 - Hemoptysis Status: Acute Assessment and Plan: He had hemoptysis prior to admission, none per the nursing staff since he arrived. He does not need a bronchoscopy at this point. Will continue to watch closely. His hemoptysis was likely due to pneumonia and is self limited. He is on Eliquis, and this may contributed this condition. History of Present Illness History of Present Illness Consult date: 12/18/21 Requesting physician: Baltazar Severino MD Chief complaint: Hemoptysis Narrative: NEW: Dr Severino asked me to see this patient in consultation for hemoptysis. 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 He is bedridden, breathes without a trach. He has a history of chronic atrial fibrillation, on Eliquis. He went to bed last night, and woke up this morning with blood in his mouth. Family initially thought the blood was was coming from his teeth and try to clear it out with gauze but he continued to have the blood with intermittent coughing. He has no chronic respiratory issues. He has no significant history of tobacco, smoked a pipe years ago. He has problems swallowing with both liquids and solids. He has had Speech Therapy in the past. His CXR today shows minimal left basilar infiltrate, corresponding to location of crackles and rhonchi. He is not able to cough secretions well. His first lactic acid was 4.5, and on repeat almost normal, 2.8. He had rapid atrial fibrillation, was placed on Cardizem drip. His heart rate is lower, now 92. Saturation is 92-100% on room air. Review of Systems Review of Systems: All systems reviewed & are unremarkable except as noted in HPI and below PMFSH Past Medical History Medical History Aspiration pneumonia Atrial fibrillation Cervical spine fracture CVA (cerebral vascular accident) Neuropathic pain Sacral decubitus ulcer Urinary obstruction Surgical History Surgical History S/P cervical spinal fusion Family History Family History Sibling Patient's brother is in good health Cancer Father Patient's father is Family history of liver disease, Onset Age: 52 Mother Patient's mother is Family history of liver disease, Onset Age: 67 Social History Social History Social History: Patient lives with family and is a paraplegic. Patient is a full code and his surrogate is his and daughter. Smoking status: Never smoker Tobacco type: pipe Smoking end date: 09/10/1962 Alcohol intake: never Substance use: never Substance use type: does not use Living arrangements: with family Occu
[2021-12-18] MEDS: LORATADINE 10 MG TABLET FEED TUBE (20:41)
[2021-12-18] MEDS: METOPROLOL TARTRATE 50 MG TAB FEED TUBE (20:41)
[2021-12-18] MEDS: LATANOPROST 0.005% OP SOLN 2.5 ML BTL 1 DROP EACH EYE (20:42)
[2021-12-18] MEDS: MELATONIN 5 MG TABLET FEED TUBE (20:42)
[2021-12-18] MEDS: traZODone HCL 50 MG TABLET FEED TUBE (20:42)
[2021-12-18] MEDS: TIMOLOL MALEATE 0.25% OP SOLN 5 ML BOTTLE 1 DROP EACH EYE (22:21)
[2021-12-19] VITALS (19 sets, daily range): BP systolic 99–139; BP diastolic 46–76; PULSE 85–127; RESP 16–20; TEMP 36.3–36.9; O2SAT 95–100
[2021-12-19 05:58] LABS: Alanine Aminotransferase 12 U/L (4-50); Albumin Level 3.4 g/dL (3.5-5.1); Alkaline Phosphatase 75 U/L (38-126); Anion Gap 7 mmol/L (8-16); Aspartate Amino Transferase 18 U/L (17-59); Bilirubin,Total 0.3 mg/dL (0.2-1.3); Blood Urea Nitrogen 51 mg/dL (9-20); Calcium 8.4 mg/dL (8.4-10.2); Carbon Dioxide 22 mmol/L (22-30); Chloride 107 mmol/L (98-107); Estimated CRCL calculation 51 ml/min; Estimated Glomerular Filt Rate > 60; Glucose 184 mg/dL (65-110); Magnesium 2.4 mg/dL (1.6-2.3); Potassium 4.3 mmol/L (3.4-5.0); Sodium 136 mmol/L (137-145)
[2021-12-19 06:01] LABS: Immature Reticulocyte Fraction 34.6 % (3.0-15.9); Reticulocyte Hemoglobin Conten 27.1 pg (28.2-35.7); Reticulocyte Percent 3.19 % (0.7-4.3)
[2021-12-19 06:06] LABS: Transferrin 228 mg/dL (206-381)
[2021-12-19 06:44] LABS: Iron 27 ug/dL (49-181)
[2021-12-19 06:56] LABS: Percent Iron Saturation 9 % (20-50)
[2021-12-19 07:13] LABS: Folic Acid > 20.0 ng/mL (2.76->20)
[2021-12-19] MEDS: SODIUM CHLORIDE 0.9% IV 1,000 ML 100 ML IV CONT ×2 (08:43→20:42)
[2021-12-19] MEDS: FERROUS SULFATE LIQUID 325 MG/7.4 ML ELIXIR 324 MG FEED TUBE ×2 (08:44→18:09)
[2021-12-19] MEDS: METOPROLOL TARTRATE 50 MG TAB FEED TUBE ×2 (08:44→20:42)
[2021-12-19] MEDS: DOCUSATE SODIUM LIQ 100 MG/10 ML UDC 50 MG PO (08:44)
[2021-12-19] MEDS: DULoxetine HCL 20 MG CAPSULE.DR PO (08:45)
[2021-12-19] MEDS: FINASTERIDE 5 MG TABLET FEED TUBE (08:45)
[2021-12-19] MEDS: SILVERGEL (ELTA) 45 ML 1 APPLIC TOPICAL (08:45)
[2021-12-19] MEDS: TIMOLOL MALEATE 0.25% OP SOLN 5 ML BOTTLE 1 DROP EACH EYE ×2 (08:46→20:42)
[2021-12-19] MEDS: TOLNAFTATE 1% POWDER 45 GM BTL 1 APPLIC TOPICAL ×2 (08:46→20:43)
--- NOTE | 2021-12-19 09:01 | PM.PNCARD ---
Progress Note: A&P Assessment and Plan (1) Atrial fibrillation with rapid ventricular response: Code(s): I48.91 - Unspecified atrial fibrillation Status: Acute Assessment and Plan: Patient's atrial fibrillation with rapid ventricular response is worsened and brought on by underlying infection. Continue metoprolol. I will Discontinue diltiazem drip. As his underlying infection is treated and improved, his heart rate will likely improve without further treatment. Hold anticoagulation for now given his concern for hemoptysis and anemia (2) UTI (urinary tract infection): Code(s): N39.0 - Urinary tract infection, site not specified Status: Acute Assessment and Plan: Antibiotics to be given (3) Cervical spine fracture: Code(s): S12.9XXA - Fracture of neck, unspecified, initial encounter Status: Acute Assessment and Plan: Paralysis below neck (4) Hemoptysis: Code(s): R04.2 - Hemoptysis Status: Acute Assessment and Plan: Holding anticoagulation for now Subjective Date/time seen: 12/19/21 09:01 Interval history: 86-year-old with AFib, UTI C4 fracture Date of service 12/19/2021: Heart rate is much better controlled on oral metoprolol and with treatment of his infections. Breathing okay Review of Systems Review of Systems: All systems reviewed & are unremarkable except as noted in HPI and below Constitutional: Constitutional: Denies excessive sweating and Denies headache(s) Eyes: Eyes: Denies blurry vision ENT: Reports Normal hearing present and Denies headache(s) Cardiovascular: Cardiovascular: Denies chest pain and Denies dyspnea Respiratory: Respiratory: Reports hemoptysis and Denies dyspnea Gastrointestinal: Gastrointestinal: Reports constipation and Reports diarrhea Genitourinary: Genitourinary: Denies dysuria Musculoskeletal: Musculoskeletal: Denies joint swelling Integumentary/Breasts: Skin/Breast: Reports wounds Neurologic: Reports Normal hearing present and Denies headache(s) Psychiatric: Psychiatric: Denies anxiety Endocrine: Endocrine: Denies excessive sweating Hematologic/Lymphatic: Hematologic/Lymphatic: Reports easy bleeding Allergic/Immunologic: Allergic/Immunologic: Denies GI upset with certain foods Exam Narrative: Patient awake alert oriented. Appears to be in no acute distress. Appears stated age Const: General: comfortable and no acute distress HENMT: General nose exam: Normal nares present Eyes: Sclera: sclerae normal Neck: Neck: supple and no JVD Chest: Other: No chest wall deformities Resp: Auscultation: clear to auscultation bilaterally Cardio: Rate: regular rate Rhythm: abnormal rhythm irregularly irregular GI: Auscultation: normal bowel sounds Skin: General skin exam: normal color Neuro: Cranial nerves: Yes Normal hearing present Cognition (Neuro): normal cognition Speech: normal speech Other: Paralysis below neck Extrem: General: no edema Other: Contractures noted Psych: Mental Status: mental status grossly normal Objective Data Vital Signs Vital Signs: Vital Signs - 24 hr 12/18/21 10:00 12/18/21 11:54 12/18/21 12:00 Temperature 36.9 C Pulse Rate 140 H 135 H 145 H Respiratory Rate 20 Blood Pressure 123/79 Pulse Oximetry 93 12/18/21 14:00 12/18/21 16:00 12/18/21 16:13 Temperature 36.6 C Pulse Rate 130 H 131 H 145 H Respiratory Rate 22 H Blood Pressure 118/70 Pulse Oximetry 94 12/18/21 17:46 12/18/21 20:00 12/18/21 20:41 Temperature 37.0 C Pulse Rate 96 91 98 Respiratory Rate 24 H Blood Pressure 97/57 L Pulse Oximetry 100 12/18/21 22:00 12/18/21 23:50 12/19/21 00:00 Temperature 36.8 C Pulse Rate 87 82 89 Respiratory Rate 20 Blood Pressure 99/50 L 99/50 L Pulse Oximetry 100 12/19/21 04:00 12/19/21 08:00 12/19/21 08:44 Temperature 36.6 C 36.9 C Pulse Rate 98 95 90 Respiratory Rate 20 16 Blood Press
[2021-12-19] MEDS: DORNASE ALFA INH SOLN 1 MG/ML 2.5 ML AMP 2.5 MG INHALATION ×2 (09:57→20:13)
--- NOTE | 2021-12-19 11:44 | PCSTNOTE ---
MBS for today initially scheduled but then cancelled and postponed until tomorrow due to patient request and fatigue.
--- NOTE | 2021-12-19 12:47 | PHAR ---
The patient's home med Gabapentin suspension 250mg/5ml was reviewed by the pharmacist. Med is a liquid in a prescription bottle.
[2021-12-19] MEDS: DOXYCYCLINE 100 MG/NS 100 ML 100 MG/100 ML BAG IVPB ×2 (12:53→22:33)
--- NOTE | 2021-12-19 15:36 | PCNFU ---
Nutrition Follow-Up Complete: Increased nutrient needs related to altered skin integrity as evidenced by stage III ulcer to sacral area Goal:Meet nutritional needs Pt is progressing towards goal. Continue with current goal at this time. Pt current nutrition is NPO/TF diet of Jevity 1.5 and dietary supplements Last recorded weight is 60 kg, up 1kg from weight reported on admit. Bowel Motility: No new BM reported Labs Reviewed: Iron 27, Mg 2.4, Alb 3.4, Na 136, BUN 51, Glu 184 Meds Noted: Colace, Pulmozyme, Vibramycin, Cymbalta, Ferrous sulfate, Proscar, Lopressor Skin: medial sacrum pressure ulcer - stage III, left abdomen maceration, bilateral lateral ankle wound Additional Notes: Current nutrition is NPO/TF diet of Jevity 1.5 bolus feedings of 237mL 5x/day with 200mL water flushes per feed. Dietary supplements of Abdelrahman BID providing an additional 80kcal and 2.5g of protein and Prostat BID providing an additional 100kcal and 15g of protein. Spoke with nursing via phone who confirms pt is receiving current nutrition. Current nutrition is providing 2135kcal, 110g of protein, and 1900mL of water. Current nutrition is meeting 109% of estimated kcal needs and 104% of estimated protein needs. Pt appears to be tolerating feedings well. Agree with diet orders at this time. Will continue to follow. Monitor TF orders, tolerance, wts, labs, skin. Follow up Wednesday/Fridays
--- NOTE | 2021-12-19 17:11 | P.PNIM_ITS ---
Progress Note: A&P Assessment and Plan (1) Hemoptysis: Code(s): R04.2 - Hemoptysis Status: Acute Assessment and Plan: * Noted bleeding on Eliquis * Eliquis has been stopped * Chest x-ray shows left basilar airspace opacity * Chest CT shows patchy airspace opacities a lower lobes * Sputum culture ordered and pending * IV antibiotics * Pulmonary consult for recommendations 12/19/2021 Interval history: patient presented with hemoptysis seen by receptionist telephone operator and suspect most likely secondary to pneumonia as patient has community-acquired pneumonia being treated with imipenem and doxycycline and also aggravated by Eliquis, patient hemoptysis has resolved and has no complaint of cough with the present, patient also has history of atrial fibrillation went into RVR was started on diltiazem drip, seen by plush weaver suspect aggravated by pneumonia, diltiazem drip stopped, patient on metoprolol rate is controlled will continue to monitor. Cardiology is recommending to hold Eliquis concerning for hemoptysis, once clinically stable will have a PT OT evaluate the patient patient will benefit going to rehab. (2) Pneumonia: Code(s): J18.9 - Pneumonia, unspecified organism Status: Acute Assessment and Plan: * Pneumonia seen with chest x-ray and the CT * Pulmonary consult * IV antibiotics * Trend labs * See above (3) Sepsis: Qualifiers: Sepsis acute organ dysfunction status: unspecified Sepsis type: sepsis due to unspecified organism Qualified Code(s): A41.9 - Sepsis, unspecified organism Code(s): A41.9 - Sepsis, unspecified organism Status: Acute Assessment and Plan: * Sepsis criteria met by tachycardia, leukocytosis, lactic acidosis, tachypnea, source of infection * Q sofa score is a 2 with mild confusion and respiratory rate greater than 22 * Lactic acid upon arrival was 4.5 repeat was 2.8 * Source of infection looks to be pneumonia as indicated on the chest x-ray with left-sided basilar airspace opacities * IV fluids given in the ED and continues IV fluids at 100 mL an hour * Blood cultures pending * Urine culture pending * IV antibiotics started however change due to urine culture recently obtained * White blood cell count elevated at 31.5 upon arrival and is currently 24.5 * Trend labs (4) Atrial fibrillation: Code(s): I48.91 - Unspecified atrial fibrillation Status: Acute Assessment and Plan: * Strong history of AFib * Was started on Eliquis however is on hold due to bleeding * EKG shows AFib RVR * Tele monitor * Cardiology consult * Cardizem for rate control * Looks as if he takes metoprolol 25 at home which will need to be continued. * Trend heart rate * Adjust therapy as indicated (5) Abnormal finding on urinalysis: Code(s): R82.90 - Unspecified abnormal findings in urine Status: Acute Assessment and Plan: * UA shows clear yellow urine with 2+ blood, positive nitrates, 2+ leukocyte esterase, greater than 75 white blood cells * Cultures pending * Urine culture from 11/15/2021 showed Pseudomonas aeruginosa * Change antibiotics to Primaxin * Tailor antibiotics to culture results * Urinary catheter has been changed (6) 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 - Pressure ulcer of sacral region, unspecified stage Status: Acute Assessment and Plan: * Chronic * Consult wounds (7) Leukocytosis: Code(s):
--- NOTE | 2021-12-19 17:11 | PM.IMPN ---
Progress Note: A&P Assessment and Plan (1) Hemoptysis: Code(s): R04.2 - Hemoptysis Status: Acute Assessment and Plan: Noted bleeding on Eliquis Eliquis has been stopped Chest x-ray shows left basilar airspace opacity Chest CT shows patchy airspace opacities a lower lobes Sputum culture ordered and pending IV antibiotics Pulmonary consult for recommendations 12/19/2021 Interval history: patient presented with hemoptysis seen by line worker and suspect most likely secondary to pneumonia as patient has community-acquired pneumonia being treated with imipenem and doxycycline and also aggravated by Eliquis, patient hemoptysis has resolved and has no complaint of cough with the present, patient also has history of atrial fibrillation went into RVR was started on diltiazem drip, seen by chief operator lock tender suspect aggravated by pneumonia, diltiazem drip stopped, patient on metoprolol rate is controlled will continue to monitor. Cardiology is recommending to hold Eliquis concerning for hemoptysis, once clinically stable will have a PT OT evaluate the patient patient will benefit going to rehab. (2) Pneumonia: Code(s): J18.9 - Pneumonia, unspecified organism Status: Acute Assessment and Plan: Pneumonia seen with chest x-ray and the CT Pulmonary consult IV antibiotics Trend labs See above (3) Sepsis: Qualifiers: Sepsis acute organ dysfunction status: unspecified Sepsis type: sepsis due to unspecified organism Qualified Code(s): A41.9 - Sepsis, unspecified organism Code(s): A41.9 - Sepsis, unspecified organism Status: Acute Assessment and Plan: Sepsis criteria met by tachycardia, leukocytosis, lactic acidosis, tachypnea, source of infection Q sofa score is a 2 with mild confusion and respiratory rate greater than 22 Lactic acid upon arrival was 4.5 repeat was 2.8 Source of infection looks to be pneumonia as indicated on the chest x-ray with left-sided basilar airspace opacities IV fluids given in the ED and continues IV fluids at 100 mL an hour Blood cultures pending Urine culture pending IV antibiotics started however change due to urine culture recently obtained White blood cell count elevated at 31.5 upon arrival and is currently 24.5 Trend labs (4) Atrial fibrillation: Code(s): I48.91 - Unspecified atrial fibrillation Status: Acute Assessment and Plan: Strong history of AFib Was started on Eliquis however is on hold due to bleeding EKG shows AFib RVR Tele monitor Cardiology consult Juan Alberto for rate control Looks as if he takes metoprolol 25 at home which will need to be continued. 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
--- NOTE | 2021-12-19 18:22 | PM.PNPUL ---
Progress Note: A&P Assessment and Plan (1) Pneumonia: Code(s): J18.9 - Pneumonia, unspecified organism Status: Acute Assessment and Plan: He has community acquired pneumonia with a chest CT showing scattered infiltrates in the bases, with crackles and rhonchi in the left base. He has difficulty clearing secretions. Cornet valve is not yielding any secretions. Agree with empiric antibiotics. He does not need supplemental O2 while awake. He has problems with his swallowing, has had Speech Therapy in the past. He could not have the swallow evaluation today as he needs to be able to sit on the side of the bed to have the study. Continue Pulmozyme, mucolytic, for secretion clearance. If he cannot clear secretions in the next day, we will stop this medication. (2) Hemoptysis: Code(s): R04.2 - Hemoptysis Status: Acute Assessment and Plan: He had hemoptysis prior to admission, none since he arrived yesterday. He does not need a bronchoscopy at this point. Will continue to watch closely. His hemoptysis was likely due to pneumonia and is self limited. He is now off Eliquis. Subjective Date/time seen: 12/19/21 18:22 Dr Paniagua is an 86 year old man seen in follow up for hemoptysis, started yesterday 12/18/21, and led to this admission. CXR 12/18showed minimal Left basilar infiltrate consistent with crackles in the same area; he has pneumonia, is on imipenem and doxycycline. His Eliquis was stopped due to hemoptysis. He has a UTI, has gram negative rods in his urine with indwelling Lizama. His infection is provoking his rapid atrial fibrillation. Cervical spinal cord injury, functional quadriplegic, bedbound. He is alert, is not having any hemoptysis today. As long as he does not have hemoptysis, he does not need a bronchoscopy . His nurse told me that he could not have his swallow study today because he needs to be able to sit on the side of the bed which he is not able to do. He has PT OT and Speech Therapy at home. His Speech Therapist works with him at home wanted him to have another swallow study to see how he is progressing. We will try to do this while he is here in the hospital. He may have aspiration as a cause of pneumonia although most gross aspiration is in the RLL. He has had aspiration and required trach for respiratory failure due to prior episodes. He is able to use the Cornet valve. I increased the setting from 0 to level 2, and he is able to take 3 big exhalations. He did not clear secretions after using this. Review of Systems Review of Systems: All systems reviewed & are unremarkable except as noted in HPI and below Exam Narrative: GEN: Not in distress. Alert, head of bed is elevated 30*. He speaks softly. Alert and oriented. CHEST: Equal air entry, symmetric excursion, crackles and rhonchi in the left base. CV: Irregular S1S2 no m/g/r; heart rate is now in the 80s. ABD : decreased bowel sounds, abdomen is mildly distended. G tube in the LUQ. Extremities : no clubbing, cyanosis, or edema. He does not move his legs or left upper extremity. He has a small amount of movement in his right hand, PSYCH: he is mentally intact, speaks softly, gives consistent answers, and appears content and not in distress. Objective Data Vital Signs Vital Signs: Vital Signs - 24 hr 12/18/21 20:00 12/18/21 20:41 12/18/21 22:00 Temperature 37.0 C Pulse Rate 91 98 87 Respiratory Rate 24 H Blood Pressure 97/57 L Pulse Oximetry 100 12/18/21 23:50 12/19/21 00:00 12/19/21 04:00 Temperature 36.8 C 36.6 C Pulse Rate 82 89 98 Respiratory Rate 20 20 Blood Pressure 99/50 L 99/50 L 107/60 Pulse Oximetry 100 96 12/19/21 08:00 12/19/21 08:44 12/19/21 09:58 Temperature 36.9 C Pulse Rate 97 90 Respiratory Rate 16 Blood Pressure 107/46 L Pulse Oximetry
[2021-12-19] MEDS: LATANOPROST 0.005% OP SOLN 2.5 ML BTL 1 DROP EACH EYE (20:41)
[2021-12-19] MEDS: MELATONIN 5 MG TABLET FEED TUBE (20:42)
[2021-12-19] MEDS: traZODone HCL 50 MG TABLET FEED TUBE (20:42)
[2021-12-19] MEDS: LORATADINE 10 MG TABLET FEED TUBE (20:42)
[2021-12-20] VITALS (22 sets, daily range): BP systolic 125–146; BP diastolic 65–73; PULSE 95–135; RESP 16–26; TEMP 36–36.5; O2SAT 97–99; BMI 22.0
[2021-12-20 05:32] LABS: Alanine Aminotransferase 17 U/L (4-50); Albumin Level 3.1 g/dL (3.5-5.1); Alkaline Phosphatase 70 U/L (38-126); Anion Gap 7 mmol/L (8-16); Aspartate Amino Transferase 25 U/L (17-59); Bilirubin,Total 0.2 mg/dL (0.2-1.3); Blood Urea Nitrogen 37 mg/dL (9-20); Calcium 8.1 mg/dL (8.4-10.2); Carbon Dioxide 22 mmol/L (22-30); Chloride 111 mmol/L (98-107); Estimated CRCL calculation 59 ml/min; Estimated Glomerular Filt Rate > 60; Glucose 156 mg/dL (65-110); Sodium 140 mmol/L (137-145)
[2021-12-20] MEDS: DORNASE ALFA INH SOLN 1 MG/ML 2.5 ML AMP 2.5 MG INHALATION ×2 (08:12→20:10)
--- NOTE | 2021-12-20 08:51 | PM.PNCARD ---
Progress Note: A&P Assessment and Plan (1) Atrial fibrillation with rapid ventricular response: Code(s): I48.91 - Unspecified atrial fibrillation Status: Acute Assessment and Plan: Patient's atrial fibrillation with rapid ventricular response is worsened and brought on by underlying infection. Will increase his metoprolol to 50 mg p.o. t.i.d. (2) UTI (urinary tract infection): Code(s): N39.0 - Urinary tract infection, site not specified Status: Acute Assessment and Plan: Antibiotics to be given (3) Cervical spine fracture: Code(s): S12.9XXA - Fracture of neck, unspecified, initial encounter Status: Acute Assessment and Plan: Paralysis below neck (4) Hemoptysis: Code(s): R04.2 - Hemoptysis Status: Acute Assessment and Plan: Holding anticoagulation for now Subjective Date/time seen: 12/20/21 08:51 Interval history: 86-year-old with AFib, UTI C4 fracture Date of service 12/19/2021: Heart rate is much better controlled on oral metoprolol and with treatment of his infections. Breathing okay Date of service 12/20/2021: Heart rate is fluctuating. Elevated now but has not received his medications yet. No chest pain or shortness of breath Review of Systems Review of Systems: All systems reviewed & are unremarkable except as noted in HPI and below Constitutional: Constitutional: Denies excessive sweating and Denies headache(s) Eyes: Eyes: Denies blurry vision ENT: Reports Normal hearing present and Denies headache(s) Cardiovascular: Cardiovascular: Denies chest pain and Denies dyspnea Respiratory: Respiratory: Reports hemoptysis and Denies dyspnea Gastrointestinal: Gastrointestinal: Reports constipation and Reports diarrhea Genitourinary: Genitourinary: Denies dysuria Musculoskeletal: Musculoskeletal: Denies joint swelling Integumentary/Breasts: Skin/Breast: Reports wounds Neurologic: Reports Normal hearing present and Denies headache(s) Psychiatric: Psychiatric: Denies anxiety Endocrine: Endocrine: Denies excessive sweating Hematologic/Lymphatic: Hematologic/Lymphatic: Reports easy bleeding Allergic/Immunologic: Allergic/Immunologic: Denies GI upset with certain foods Exam Narrative: Patient awake alert oriented. Appears to be in no acute distress. Appears stated age Const: General: comfortable and no acute distress HENMT: General nose exam: Normal nares present Eyes: Sclera: sclerae normal Neck: Neck: supple and no JVD Chest: Other: No chest wall deformities Resp: Auscultation: clear to auscultation bilaterally Cardio: Rate: tachycardic Rhythm: abnormal rhythm irregularly irregular GI: Auscultation: normal bowel sounds Skin: General skin exam: normal color Neuro: Cranial nerves: Yes Normal hearing present Cognition (Neuro): normal cognition Speech: normal speech Other: Paralysis below neck Extrem: General: no edema Other: Contractures noted Psych: Mental Status: mental status grossly normal Objective Data Vital Signs Vital Signs: Vital Signs - 24 hr 12/19/21 09:58 12/19/21 09:59 12/19/21 10:00 Temperature Pulse Rate 89 99 Respiratory Rate 16 Blood Pressure Pulse Oximetry 96 12/19/21 10:08 12/19/21 12:00 12/19/21 14:00 Temperature 36.3 C L Pulse Rate 85 86 90 Respiratory Rate 16 20 Blood Pressure 99/50 L Pulse Oximetry 98 12/19/21 16:00 12/19/21 17:16 12/19/21 19:56 Temperature 36.8 C 36.3 C L Pulse Rate 112 H 115 H 118 H Respiratory Rate 20 18 Blood Pressure 113/58 L 132/69 Pulse Oximetry 98 98 12/19/21 20:00 12/19/21 20:13 12/19/21 20:21 Temperature Pulse Rate 118 H 119 H 122 H Respiratory Rate 18 18 18 Blood Pressure Pulse Oximetry 98 95 12/19/21 20:42 12/19/21 22:00 12/19/21 23:51 Temperature 36.3 C L Pulse Rate 127 H 104 H 106 H Respiratory Rate 20 Blood Pressure 139/76 Pulse Oximetry 97 12/20/21 00:00 0
--- NOTE | 2021-12-20 09:35 | PCSTNOTE ---
Spoke with pt regarding MBS ordered to which he politely replied no and asked if the study could be completed tomorrow instead. Spoke with his treating hospitalist, was agreeable with waiting until tomorrow per patient request due to lethargy. MBS to be attempted 12/21.
[2021-12-20] MEDS: DULoxetine HCL 20 MG CAPSULE.DR PO (10:11)
[2021-12-20] MEDS: FERROUS SULFATE LIQUID 325 MG/7.4 ML ELIXIR FEED TUBE ×2 (10:11→17:29)
[2021-12-20] MEDS: DOCUSATE SODIUM LIQ 100 MG/10 ML UDC 50 MG PO (10:11)
[2021-12-20] MEDS: METOPROLOL TARTRATE 50 MG TAB FEED TUBE ×3 (10:12→17:29)
[2021-12-20] MEDS: FINASTERIDE 5 MG TABLET FEED TUBE (10:12)
[2021-12-20] MEDS: TIMOLOL MALEATE 0.25% OP SOLN 5 ML BOTTLE 1 DROP EACH EYE ×2 (10:13→21:30)
[2021-12-20] MEDS: IRON SUCROSE COMPLEX 100 MG in SODIUM CHLORIDE 0.9% IV 50 ML 220 MG IVPB (10:22)
[2021-12-20] MEDS: DOXYCYCLINE 100 MG/NS 100 ML 100 MG/100 ML BAG IVPB ×2 (12:18→23:27)
[2021-12-20] MEDS: SODIUM CHLORIDE 0.9% IV 1,000 ML 100 ML IV CONT (12:19)
--- NOTE | 2021-12-20 12:29 | P.PNIM_ITS ---
Progress Note: A&P Assessment and Plan (1) Hemoptysis: Code(s): R04.2 - Hemoptysis Status: Acute Assessment and Plan: * Noted bleeding on Eliquis * Eliquis has been stopped * Chest x-ray shows left basilar airspace opacity * Chest CT shows patchy airspace opacities a lower lobes * Sputum culture ordered and pending * IV antibiotics * Pulmonary consult for recommendations 12/19/2021 Interval history: patient presented with hemoptysis seen by profiling machine set up operator tool and suspect most likely secondary to pneumonia as patient has community-acquired pneumonia being treated with imipenem and doxycycline and also aggravated by Eliquis, patient hemoptysis has resolved and has no complaint of cough with the present, patient also has history of atrial fibrillation went into RVR was started on diltiazem drip, seen by vice president of product marketing suspect aggravated by pneumonia, diltiazem drip stopped, patient on metoprolol rate is controlled will continue to monitor. Cardiology is recommending to hold Eliquis concerning for hemoptysis, once clinically stable will have a PT OT evaluate the patient patient will benefit going to rehab. 12/20/2021 interval history: today patient remains clinically stable however patient with atrial fibrillation with RVR the rate is not controlled seen by vice president of product marketing suspect secondary to underlying infection with pneumonia, UTI, vice president of product marketing increased metoprolol 50 mg t.i.d. from b.i.d., patient is being treated with imipenem and doxycycline for pneumonia urine culture is growing Gram-negative bacilli will follow-up on urine culture and may adjust antibiotics if needed, and also has a iron deficiency anemia will start the patient on Venofer, by profiling machine set up operator tool and further recommendation to follow. (2) Pneumonia: Code(s): J18.9 - Pneumonia, unspecified organism Status: Acute Assessment and Plan: * Pneumonia seen with chest x-ray and the CT * Pulmonary consult * IV antibiotics * Trend labs * See above (3) Sepsis: Qualifiers: Sepsis acute organ dysfunction status: unspecified Sepsis type: sepsis due to unspecified organism Qualified Code(s): A41.9 - Sepsis, unspecified organism Code(s): A41.9 - Sepsis, unspecified organism Status: Acute Assessment and Plan: * Sepsis criteria met by tachycardia, leukocytosis, lactic acidosis, tachypnea, source of infection * Q sofa score is a 2 with mild confusion and respiratory rate greater than 22 * Lactic acid upon arrival was 4.5 repeat was 2.8 * Source of infection looks to be pneumonia as indicated on the chest x-ray with left-sided basilar airspace opacities * IV fluids given in the ED and continues IV fluids at 100 mL an hour * Blood cultures pending * Urine culture pending * IV antibiotics started however change due to urine culture recently obtained * White blood cell count elevated at 31.5 upon arrival and is currently 24.5 * Trend labs (4) Atrial fibrillation: Code(s): I48.91 - Unspecified atrial fibrillation Status: Acute Assessment and Plan: * Strong history of AFib * Was started on Eliquis however is on hold due to bleeding * EKG shows AFib RVR * Tele monitor * Cardiology consult * Cardizem for rate control * Looks as if he takes metoprolol 25 at home which will need to be continued. * Trend heart rate * Adjust therapy as indicated (5) Abnormal finding on urinalysis: Code(s): R82.90 - Unspecified abnormal findings in urine Status: Acute Assessment and Plan:
--- NOTE | 2021-12-20 12:29 | PM.IMPN ---
Progress Note: A&P Assessment and Plan (1) Hemoptysis: Code(s): R04.2 - Hemoptysis Status: Acute Assessment and Plan: Noted bleeding on Eliquis Eliquis has been stopped Chest x-ray shows left basilar airspace opacity Chest CT shows patchy airspace opacities a lower lobes Sputum culture ordered and pending IV antibiotics Pulmonary consult for recommendations 12/19/2021 Interval history: patient presented with hemoptysis seen by customer support representative and suspect most likely secondary to pneumonia as patient has community-acquired pneumonia being treated with imipenem and doxycycline and also aggravated by Eliquis, patient hemoptysis has resolved and has no complaint of cough with the present, patient also has history of atrial fibrillation went into RVR was started on diltiazem drip, seen by wheelage clerk suspect aggravated by pneumonia, diltiazem drip stopped, patient on metoprolol rate is controlled will continue to monitor. Cardiology is recommending to hold Eliquis concerning for hemoptysis, once clinically stable will have a PT OT evaluate the patient patient will benefit going to rehab. 12/20/2021 interval history: today patient remains clinically stable however patient with atrial fibrillation with RVR the rate is not controlled seen by wheelage clerk suspect secondary to underlying infection with pneumonia, UTI, wheelage clerk increased metoprolol 50 mg t.i.d. from b.i.d., patient is being treated with imipenem and doxycycline for pneumonia urine culture is growing Gram-negative bacilli will follow-up on urine culture and may adjust antibiotics if needed, and also has a iron deficiency anemia will start the patient on Venofer, by customer support representative and further recommendation to follow. (2) Pneumonia: Code(s): J18.9 - Pneumonia, unspecified organism Status: Acute Assessment and Plan: Pneumonia seen with chest x-ray and the CT Pulmonary consult IV antibiotics Trend labs See above (3) Sepsis: Qualifiers: Sepsis acute organ dysfunction status: unspecified Sepsis type: sepsis due to unspecified organism Qualified Code(s): A41.9 - Sepsis, unspecified organism Code(s): A41.9 - Sepsis, unspecified organism Status: Acute Assessment and Plan: Sepsis criteria met by tachycardia, leukocytosis, lactic acidosis, tachypnea, source of infection Q sofa score is a 2 with mild confusion and respiratory rate greater than 22 Lactic acid upon arrival was 4.5 repeat was 2.8 Source of infection looks to be pneumonia as indicated on the chest x-ray with left-sided basilar airspace opacities IV fluids given in the ED and continues IV fluids at 100 mL an hour Blood cultures pending Urine culture pending IV antibiotics started however change due to urine culture recently obtained White blood cell count elevated at 31.5 upon arrival and is currently 24.5 Trend labs (4) Atrial fibrillation: Code(s): I48.91 - Unspecified atrial fibrillation Status: Acute Assessment and Plan: Strong history of AFib Was started on Eliquis however is on hold due to bleeding EKG shows AFib RVR Tele monitor Cardiology consult Juan Alberto for rate control Looks as if he takes metoprolol 25 at home which will need to be continued. Trend heart rate Adjust therapy as indicated (5) Abnormal finding on urinalysis: Code(s): R82.90 - Unspecified abnormal findings in urine Status: Acute Assessment and Plan: UA shows clear yellow urine with 2+ blood, positive nitrates, 2+ leukocyte esterase, greater than 75 white blood cells Cultures pending Urine culture from 11/15/2021 showed Pseudomonas aeruginosa Change antibiotics to Primaxin Tailor antibiotics to culture results Urinary catheter has been changed (6) 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 - Pressure ulcer of sacral region, unspecified stage Sta
--- NOTE | 2021-12-20 14:02 | PM.PNPUL ---
Progress Note: A&P Assessment and Plan (1) Pneumonia: Code(s): J18.9 - Pneumonia, unspecified organism Status: Acute Assessment and Plan: He has community acquired pneumonia with a chest CT showing scattered infiltrates in the bases, with crackles and rhonchi in the left base. He has difficulty clearing secretions. Cornet valve is not yielding any secretions. Continue empiric antibiotics. He does not need supplemental O2 while awake. He has problems with his swallowing, has had Speech Therapy in the past. He could not have the swallow evaluation today as he needs to be able to sit on the side of the bed to have the study. Continue Pulmozyme, mucolytic, for secretion clearance. Will stop tomorrow if he has not secretions that are loosened with this medication and Cornet valve. (2) Hemoptysis: Code(s): R04.2 - Hemoptysis Status: Acute Assessment and Plan: He had hemoptysis prior to admission, none since he arrived . He does not need a bronchoscopy at this point. Will continue to watch closely. His hemoptysis was likely due to pneumonia and is self limited. He is now off Eliquis. Subjective Date/time seen: 12/20/21 14:02 Dr Paniagua is an 86 year old man seen in follow up for hemoptysis, started 12/18/21, CXR 12/18showed minimal Left basilar infiltrate consistent pneumonia, is on imipenem and doxycycline. His Eliquis was stopped due to hemoptysis. He has an E Coli UTI, indwelling Lizama. His infection is provoking his rapid atrial fibrillation. Cervical spinal cord injury, functional quadriplegic, bedbound. He is alert, had a small amount of blood streaking in his oral secretions. As long as he does not have significant hemoptysis, he does not need a bronchoscopy Swallow study was not performed Wednesday as he needs to be able to sit on the side of the bed which he is not able to do. He has PT OT and Speech Therapy at home. His Speech Therapist works with him at home wanted him to have another swallow study to see how he is progressing. We will try to do this while he is here in the hospital. He may have aspiration as a cause of pneumonia although most gross aspiration is in the RLL. He has had aspiration and required trach for respiratory failure due to prior episodes. He is able to use the Cornet valve. This is on the 2nd setting. Review of Systems Review of Systems: All systems reviewed & are unremarkable except as noted in HPI and below Exam Narrative: GEN: Not in distress. Alert, head of bed is elevated 30*. He speaks softly. Alert and oriented. CHEST: Equal air entry, symmetric excursion, crackles and rhonchi in the left base. CV: Irregular S1S2 no m/g/r; heart rate is now in the 90s. HIs HR has been up in the 130s. ABD : decreased bowel sounds, abdomen is mildly distended. G tube in the LUQ. Extremities : no clubbing, cyanosis, or edema. He does not move his legs or left upper extremity. He has a small amount of movement in his right hand, PSYCH: He is mentally intact, speaks softly. Objective Data Vital Signs Vital Signs: Vital Signs - 24 hr 12/19/21 16:00 12/19/21 17:16 12/19/21 19:56 Temperature 36.8 C 36.3 C L Pulse Rate 112 H 115 H 118 H Respiratory Rate 20 18 Blood Pressure 113/58 L 132/69 Pulse Oximetry 98 98 12/19/21 20:00 12/19/21 20:13 12/19/21 20:21 Temperature Pulse Rate 118 H 119 H 122 H Respiratory Rate 18 18 18 Blood Pressure Pulse Oximetry 98 95 12/19/21 20:42 12/19/21 22:00 12/19/21 23:51 Temperature 36.3 C L Pulse Rate 127 H 104 H 106 H Respiratory Rate 20 Blood Pressure 139/76 Pulse Oximetry 97 12/20/21 00:00 12/20/21 01:54 12/20/21 03:31 Temperature 36.2 C L Pulse Rate 98 108 H 116 H Respiratory Rate 20 20 Blood Pressure 125/72 Pulse Oximetry 97 98 12/20/21 04:00 12/20/21 05:
[2021-12-20] MEDS: TOLNAFTATE 1% POWDER 45 GM BTL 1 APPLIC TOPICAL ×2 (15:16→21:31)
[2021-12-20] MEDS: SILVERGEL (ELTA) 45 ML 1 APPLIC TOPICAL (15:16)
--- NOTE | 2021-12-20 18:35 | PC.NURSE ---
This patient, Geraldo Paniagua, was received from IMU on 12/20/21 at 1820. Patient/family oriented to unit policies and routines
[2021-12-20] MEDS: traZODone HCL 50 MG TABLET FEED TUBE (21:21)
[2021-12-20] MEDS: MELATONIN 5 MG TABLET FEED TUBE (21:21)
[2021-12-20] MEDS: LATANOPROST 0.005% OP SOLN 2.5 ML BTL 1 DROP EACH EYE (21:30)
[2021-12-20] MEDS: LORATADINE 10 MG TABLET FEED TUBE (21:31)
[2021-12-20] MEDS: WATER FOR IRRIGATION, STERILE 1,000 ML BOTTLE 1000 ML (21:52)
[2021-12-21] VITALS (15 sets, daily range): BP systolic 124–140; BP diastolic 68–89; PULSE 92–126; RESP 18–20; TEMP 36.1–37.4; O2SAT 92–98
[2021-12-21] MEDS: SODIUM CHLORIDE 0.9% IV 1,000 ML 100 ML IV CONT ×2 (00:27→14:15)
[2021-12-21] MEDS: METOPROLOL TARTRATE 50 MG TAB PO (02:53)
[2021-12-21 05:24] LABS: Hemoglobin 7.9 g/dL (14.0-18.0); Mean Corpuscular HGB Conc 29.3 g/dl (32-36); Mean Corpuscular Hemoglobin 26.6 pg (26-34); Mean Corpuscular Volume 90.9 fl (80-100); Mean Platelet Volume 9.6 fl (7.4-10.4); Platelet Count Result 274 k/mm3 (150-375); Red Blood Count 2.97 M/mm3 (4.6-6.20); Red Cell Distribution Width 17.5 % (11.5-14.5); White Blood Count 10.4 K/mm3 (4.5-10.0)
[2021-12-21 05:39] LABS: Potassium 3.8 mmol/L (3.4-5.0); Sodium 138 mmol/L (137-145)
[2021-12-21 05:40] LABS: Alanine Aminotransferase 19 U/L (4-50); Albumin Level 3.1 g/dL (3.5-5.1); Alkaline Phosphatase 86 U/L (38-126); Anion Gap 7 mmol/L (8-16); Aspartate Amino Transferase 27 U/L (17-59); Bilirubin,Total 0.3 mg/dL (0.2-1.3); Blood Urea Nitrogen 25 mg/dL (9-20); Calcium 8.4 mg/dL (8.4-10.2); Carbon Dioxide 22 mmol/L (22-30); Chloride 109 mmol/L (98-107); Estimated CRCL calculation 66 ml/min; Estimated Glomerular Filt Rate > 60; Glucose 148 mg/dL (65-110)
[2021-12-21] MEDS: DORNASE ALFA INH SOLN 1 MG/ML 2.5 ML AMP 2.5 MG INHALATION (07:37)
[2021-12-21] MEDS: FERROUS SULFATE LIQUID 325 MG/7.4 ML ELIXIR FEED TUBE ×2 (07:52→17:27)
[2021-12-21] MEDS: TIMOLOL MALEATE 0.25% OP SOLN 5 ML BOTTLE 1 DROP EACH EYE ×2 (07:53→20:55)
[2021-12-21] MEDS: METOPROLOL TARTRATE 50 MG TAB FEED TUBE ×3 (07:53→17:26)
[2021-12-21] MEDS: DULoxetine HCL 20 MG CAPSULE.DR PO (07:53)
[2021-12-21] MEDS: FINASTERIDE 5 MG TABLET FEED TUBE (07:53)
[2021-12-21] MEDS: TOLNAFTATE 1% POWDER 45 GM BTL 1 APPLIC TOPICAL ×2 (07:56→21:04)
[2021-12-21] MEDS: IRON SUCROSE COMPLEX 100 MG in SODIUM CHLORIDE 0.9% IV 50 ML 220 MG IVPB (08:55)
--- NOTE | 2021-12-21 09:56 | PM.PNCARD ---
Progress Note: A&P Assessment and Plan (1) Atrial fibrillation with rapid ventricular response: Code(s): I48.91 - Unspecified atrial fibrillation Status: Acute Assessment and Plan: Patient's atrial fibrillation with rapid ventricular response is worsened and brought on by underlying infection. Continue metoprolol. Heart rate is reasonably controlled. Holding Eliquis for now. This will need to be further addressed before discharge depending on bleeding/anemia. (2) UTI (urinary tract infection): Code(s): N39.0 - Urinary tract infection, site not specified Status: Acute Assessment and Plan: Antibiotics to be given (3) Cervical spine fracture: Code(s): S12.9XXA - Fracture of neck, unspecified, initial encounter Status: Acute Assessment and Plan: Paralysis below neck (4) Hemoptysis: Code(s): R04.2 - Hemoptysis Status: Acute Assessment and Plan: Holding anticoagulation for now Subjective Date/time seen: 12/21/21 09:56 Interval history: 86-year-old with AFib, UTI C4 fracture Date of service 12/19/2021: Heart rate is much better controlled on oral metoprolol and with treatment of his infections. Breathing okay Date of service 12/20/2021: Heart rate is fluctuating. Elevated now but has not received his medications yet. No chest pain or shortness of breath Date of service 12/21/2021: Feels better overall. No chest pain or shortness of breath Review of Systems Review of Systems: All systems reviewed & are unremarkable except as noted in HPI and below Constitutional: Constitutional: Denies excessive sweating and Denies headache(s) Eyes: Eyes: Denies blurry vision ENT: Reports Normal hearing present and Denies headache(s) Cardiovascular: Cardiovascular: Denies chest pain and Denies dyspnea Respiratory: Respiratory: Reports hemoptysis and Denies dyspnea Gastrointestinal: Gastrointestinal: Reports constipation and Reports diarrhea Genitourinary: Genitourinary: Denies dysuria Musculoskeletal: Musculoskeletal: Denies joint swelling Integumentary/Breasts: Skin/Breast: Reports wounds Neurologic: Reports Normal hearing present and Denies headache(s) Psychiatric: Psychiatric: Denies anxiety Endocrine: Endocrine: Denies excessive sweating Hematologic/Lymphatic: Hematologic/Lymphatic: Reports easy bleeding Allergic/Immunologic: Allergic/Immunologic: Denies GI upset with certain foods Exam Narrative: Patient awake alert oriented. Appears to be in no acute distress. Appears stated age Const: General: comfortable and no acute distress HENMT: General nose exam: Normal nares present Eyes: Sclera: sclerae normal Neck: Neck: supple and no JVD Chest: Other: No chest wall deformities Resp: Auscultation: clear to auscultation bilaterally Cardio: Rate: not tachycardic Rhythm: abnormal rhythm irregularly irregular GI: Auscultation: normal bowel sounds Skin: General skin exam: normal color Neuro: Cranial nerves: Yes Normal hearing present Cognition (Neuro): normal cognition Speech: normal speech Other: Paralysis below neck Extrem: General: no edema Other: Contractures noted Psych: Mental Status: mental status grossly normal Objective Data Vital Signs Vital Signs: Vital Signs - 24 hr 12/20/21 10:00 12/20/21 10:12 12/20/21 12:00 Temperature 36.3 C L Pulse Rate 129 H 135 H 103 H Respiratory Rate 20 Blood Pressure 135/73 Pulse Oximetry 98 12/20/21 13:39 12/20/21 14:00 12/20/21 15:51 Temperature 36.2 C L Pulse Rate 116 H 109 H 98 Respiratory Rate 16 Blood Pressure 125/65 Pulse Oximetry 98 12/20/21 16:00 12/20/21 17:29 12/20/21 18:20 Temperature 36.0 C L Pulse Rate 106 H 106 H 95 Respiratory Rate 20 16 Blood Pressure 136/69 Pulse Oximetry 98 99 12/20/21 20:00 12/20/21 20:07 12/20/21 20:17 Temperature Pulse Rate 118 H 110 H 110 H Respiratory Rate 18 18 Blood Pr
--- NOTE | 2021-12-21 10:53 | P.PNIM_ITS ---
Progress Note: A&P Assessment and Plan (1) Hemoptysis: Code(s): R04.2 - Hemoptysis Status: Acute Assessment and Plan: * Noted bleeding on Eliquis * Eliquis has been stopped * Chest x-ray shows left basilar airspace opacity * Chest CT shows patchy airspace opacities a lower lobes * Sputum culture ordered and pending * IV antibiotics * Pulmonary consult for recommendations 12/19/2021 Interval history: patient presented with hemoptysis seen by classifier tender and suspect most likely secondary to pneumonia as patient has community-acquired pneumonia being treated with imipenem and doxycycline and also aggravated by Eliquis, patient hemoptysis has resolved and has no complaint of cough with the present, patient also has history of atrial fibrillation went into RVR was started on diltiazem drip, seen by job lithographer suspect aggravated by pneumonia, diltiazem drip stopped, patient on metoprolol rate is controlled will continue to monitor. Cardiology is recommending to hold Eliquis concerning for hemoptysis, once clinically stable will have a PT OT evaluate the patient patient will benefit going to rehab. 12/20/2021 interval history: today patient remains clinically stable however patient with atrial fibrillation with RVR the rate is not controlled seen by job lithographer suspect secondary to underlying infection with pneumonia, UTI, job lithographer increased metoprolol 50 mg t.i.d. from b.i.d., patient is being treated with imipenem and doxycycline for pneumonia urine culture is growing Gram-negative bacilli will follow-up on urine culture and may adjust antibiotics if needed, and also has a iron deficiency anemia will start the patient on Venofer, by classifier tender and further recommendation to follow. 12/21/2021 interval history: today patient remains clinically stable however patient with atrial fibrillation with RVR the rate was not controlled seen by job lithographer suspect secondary to underlying infection with pneumonia, UTI, job lithographer increased metoprolol 50 mg t.i.d. from b.i.d., today patient HR is more close to normal, patient is being treated with imipenem and doxycycline for pneumonia urine culture is growing E coli will continue imipenem and also has a iron deficiency anemia will start the patient on Venofer, by classifier tender and further recommendation to follow. May discharge him tomorrow. (2) Pneumonia: Code(s): J18.9 - Pneumonia, unspecified organism Status: Acute Assessment and Plan: * Pneumonia seen with chest x-ray and the CT * Pulmonary consult * IV antibiotics * Trend labs * See above (3) Sepsis: Qualifiers: Sepsis acute organ dysfunction status: unspecified Sepsis type: sepsis due to unspecified organism Qualified Code(s): A41.9 - Sepsis, unspecified organism Code(s): A41.9 - Sepsis, unspecified organism Status: Acute Assessment and Plan: * Sepsis criteria met by tachycardia, leukocytosis, lactic acidosis, tachypnea, source of infection * Q sofa score is a 2 with mild confusion and respiratory rate greater than 22 * Lactic acid upon arrival was 4.5 repeat was 2.8 * Source of infection looks to be pneumonia as indicated on the chest x-ray with left-sided basilar airspace opacities * IV fluids given in the ED and continues IV fluids at 100 mL an hour * Blood cultures pending * Urine culture pending * IV antibiotics started however change due to urine culture recently obtained * White blood cell count elevated at 31.5 upon arrival and is currently 24.5 * Trend labs (4) Atrial fibrillation: Code(s): I48.91
--- NOTE | 2021-12-21 10:53 | PM.IMPN ---
Progress Note: A&P Assessment and Plan (1) Hemoptysis: Code(s): R04.2 - Hemoptysis Status: Acute Assessment and Plan: Noted bleeding on Eliquis Eliquis has been stopped Chest x-ray shows left basilar airspace opacity Chest CT shows patchy airspace opacities a lower lobes Sputum culture ordered and pending IV antibiotics Pulmonary consult for recommendations 12/19/2021 Interval history: patient presented with hemoptysis seen by home health provider and suspect most likely secondary to pneumonia as patient has community-acquired pneumonia being treated with imipenem and doxycycline and also aggravated by Eliquis, patient hemoptysis has resolved and has no complaint of cough with the present, patient also has history of atrial fibrillation went into RVR was started on diltiazem drip, seen by lipcoat sprayer suspect aggravated by pneumonia, diltiazem drip stopped, patient on metoprolol rate is controlled will continue to monitor. Cardiology is recommending to hold Eliquis concerning for hemoptysis, once clinically stable will have a PT OT evaluate the patient patient will benefit going to rehab. 12/20/2021 interval history: today patient remains clinically stable however patient with atrial fibrillation with RVR the rate is not controlled seen by lipcoat sprayer suspect secondary to underlying infection with pneumonia, UTI, lipcoat sprayer increased metoprolol 50 mg t.i.d. from b.i.d., patient is being treated with imipenem and doxycycline for pneumonia urine culture is growing Gram-negative bacilli will follow-up on urine culture and may adjust antibiotics if needed, and also has a iron deficiency anemia will start the patient on Venofer, by home health provider and further recommendation to follow. 12/21/2021 interval history: today patient remains clinically stable however patient with atrial fibrillation with RVR the rate was not controlled seen by lipcoat sprayer suspect secondary to underlying infection with pneumonia, UTI, lipcoat sprayer increased metoprolol 50 mg t.i.d. from b.i.d., today patient HR is more close to normal, patient is being treated with imipenem and doxycycline for pneumonia urine culture is growing E coli will continue imipenem and also has a iron deficiency anemia will start the patient on Venofer, by home health provider and further recommendation to follow. May discharge him tomorrow. (2) Pneumonia: Code(s): J18.9 - Pneumonia, unspecified organism Status: Acute Assessment and Plan: Pneumonia seen with chest x-ray and the CT Pulmonary consult IV antibiotics Trend labs See above (3) Sepsis: Qualifiers: Sepsis acute organ dysfunction status: unspecified Sepsis type: sepsis due to unspecified organism Qualified Code(s): A41.9 - Sepsis, unspecified organism Code(s): A41.9 - Sepsis, unspecified organism Status: Acute Assessment and Plan: Sepsis criteria met by tachycardia, leukocytosis, lactic acidosis, tachypnea, source of infection Q sofa score is a 2 with mild confusion and respiratory rate greater than 22 Lactic acid upon arrival was 4.5 repeat was 2.8 Source of infection looks to be pneumonia as indicated on the chest x-ray with left-sided basilar airspace opacities IV fluids given in the ED and continues IV fluids at 100 mL an hour Blood cultures pending Urine culture pending IV antibiotics started however change due to urine culture recently obtained White blood cell count elevated at 31.5 upon arrival and is currently 24.5 Trend labs (4) Atrial fibrillation: Code(s): I48.91 - Unspecified atrial fibrillation Status: Acute Assessment and Plan: Strong history of AFib Was started on Eliquis however is on hold due to bleeding EKG shows AFib RVR Tele monitor Cardiology consult Juan Alberto for rate control Looks as if he takes metoprolol 25 at home which will need to be continued. Trend heart rate Adjust t
--- NOTE | 2021-12-21 10:55 | PCSTNOTE ---
Please refer to the Modified Barium Swallow Evaluation in the EMR.
[2021-12-21] MEDS: DOXYCYCLINE 100 MG/NS 100 ML 100 MG/100 ML BAG IVPB ×2 (12:24→23:52)
[2021-12-21] MEDS: SILVERGEL (ELTA) 45 ML 1 APPLIC TOPICAL (12:24)
--- NOTE | 2021-12-21 13:53 | PM.PNPUL ---
Progress Note: A&P Assessment and Plan (1) Pneumonia: Code(s): J18.9 - Pneumonia, unspecified organism Status: Acute Assessment and Plan: He has community acquired pneumonia with a chest CT showing scattered infiltrates in the bases, with crackles and rhonchi in the left base. He has difficulty clearing secretions. Cornet valve is not yielding any secretions. Continue empiric antibiotics. He does not need supplemental O2 while awake. He has problems with his swallowing, failed his swallow today. The patient tells me that he will have a repeat swallow study tomorrow. He has Speech Therapy at home. PLAN: Stop Pulmozyme. Add incentive spirometer. He is not having hemoptysis. He may have aspiration contributing to his pneumonia this admission. (2) Hemoptysis: Code(s): R04.2 - Hemoptysis Status: Acute Assessment and Plan: He had hemoptysis prior to admission, none since he arrived . He does not need a bronchoscopy at this point. Will continue to watch closely. His hemoptysis was likely due to pneumonia and is self limited. He is now off Eliquis. Subjective Date/time seen: 12/21/21 13:53 Dr Paniagua is an 86 year old man seen in follow up for hemoptysis and pneumonia with a left basilar infiltrate. He is on imipenem and doxycycline. His Eliquis was stopped due to hemoptysis. He has an E Coli UTI, indwelling Lizama. His infection is provoking his rapid atrial fibrillation. C4 spinal cord injury, functional quadriplegic, bedbound. 12/21 - no hemoptysis today. He completed his swallow study, and he aspirates thin liquids. His Speech Therapist who provides services at home wanted him to have another swallow study to see how he is progressing. He may have aspiration as a cause of pneumonia although most gross aspiration is in the RLL. He continues to have aspiration now, although he does not have an oral diet at home. He is on tube feedings. He has required trach for respiratory failure due to prior episodes. He is able to use the Cornet valve on the 2nd setting.He has no secretions expectorated. Review of Systems Review of Systems: All systems reviewed & are unremarkable except as noted in HPI and below (HPI) Exam Narrative: In room 340 GEN: Not in distress. Alert, head of bed is elevated. He speaks softly. Alert and oriented. CHEST: Equal air entry, symmetric excursion, crackles and rhonchi in the left base. CV: Irregular S1S2 no m/g/r; heart rate is now in the 90s. His HR has been up in the low 100 range, overall more controlled. ABD : decreased bowel sounds, G tube in the LUQ. Extremities : no clubbing, cyanosis, or edema. He does not move his legs or left upper extremity. He has a small amount of movement in his right hand, PSYCH: He is mentally intact, speaks softly. Objective Data Vital Signs Vital Signs: Vital Signs - 24 hr 12/20/21 14:00 12/20/21 15:51 12/20/21 16:00 Temperature 36.2 C L Pulse Rate 109 H 98 106 H Respiratory Rate 16 20 Blood Pressure 125/65 Pulse Oximetry 98 98 12/20/21 17:29 12/20/21 18:20 12/20/21 20:00 Temperature 36.0 C L Pulse Rate 106 H 95 118 H Respiratory Rate 16 Blood Pressure 136/69 Pulse Oximetry 99 12/20/21 20:07 12/20/21 20:17 12/20/21 21:02 Temperature 36.5 C Pulse Rate 110 H 110 H 117 H Respiratory Rate 18 18 16 Blood Pressure 139/71 Pulse Oximetry 97 97 12/21/21 00:00 12/21/21 00:30 12/21/21 02:53 Temperature 36.2 C L Pulse Rate 124 H 126 H 125 H Respiratory Rate 20 Blood Pressure 140/89 Pulse Oximetry 92 12/21/21 04:00 12/21/21 05:46 12/21/21 07:40 Temperature 36.1 C L Pulse Rate 98 104 H 102 H Respiratory Rate 18 18 Blood Pressure 140/86 Pulse Oximetry 98 12/21/21 07:50 12/21/21 07:53 Temperature Pulse Rate 98 92 Respi
[2021-12-21] MEDS: ACETAMINOPHEN ELIXIR 325 MG/10.15 ML UDC 650 MG FEED TUBE (17:26)
[2021-12-21] MEDS: LORATADINE 10 MG TABLET FEED TUBE (20:55)
[2021-12-21] MEDS: LATANOPROST 0.005% OP SOLN 2.5 ML BTL 1 DROP EACH EYE (20:55)
[2021-12-21] MEDS: traZODone HCL 50 MG TABLET FEED TUBE (20:55)
[2021-12-21] MEDS: MELATONIN 5 MG TABLET FEED TUBE (20:55)
[2021-12-22] VITALS (9 sets, daily range): BP systolic 126–148; BP diastolic 58–88; PULSE 84–121; RESP 18; TEMP 36.6–37.2; O2SAT 96–98
[2021-12-22] MEDS: SODIUM CHLORIDE 0.9% IV 1,000 ML 100 ML IV CONT ×2 (02:19→12:08)
[2021-12-22 06:02] LABS: Hematocrit 28.1 % (42.0-52.0); Hemoglobin 8.2 g/dL (14.0-18.0); Mean Corpuscular HGB Conc 29.2 g/dl (32-36); Mean Corpuscular Hemoglobin 26.5 pg (26-34); Mean Corpuscular Volume 90.6 fl (80-100); Mean Platelet Volume 9.4 fl (7.4-10.4); Platelet Count Result 300 k/mm3 (150-375); Red Cell Distribution Width 17.5 % (11.5-14.5)
[2021-12-22 06:14] LABS: Alanine Aminotransferase 17 U/L (4-50); Albumin Level 3.1 g/dL (3.5-5.1); Alkaline Phosphatase 87 U/L (38-126); Anion Gap 5 mmol/L (8-16); Aspartate Amino Transferase 23 U/L (17-59); Bilirubin,Total < 0.1 mg/dL (0.2-1.3); Blood Urea Nitrogen 30 mg/dL (9-20); Calcium 8.4 mg/dL (8.4-10.2); Carbon Dioxide 24 mmol/L (22-30); Chloride 109 mmol/L (98-107); Estimated CRCL calculation 66 ml/min; Estimated Glomerular Filt Rate > 60; Glucose 145 mg/dL (65-110); Potassium 3.7 mmol/L (3.4-5.0); Sodium 138 mmol/L (137-145)
--- NOTE | 2021-12-22 08:52 | PM.PNCARD ---
Progress Note: A&P Assessment and Plan (1) Atrial fibrillation with rapid ventricular response: Code(s): I48.91 - Unspecified atrial fibrillation Status: Acute Assessment and Plan: Patient's atrial fibrillation with rapid ventricular response exacerbated by underlying infection due to UTI and pneumonia. - Continue Metoprolol, but increased to 75 mg per tube t.i.d.. Anticipate heart rate will improve with further treatment of underlying infection. - Eliquis remains on hold out of concerns for hemoptysis at admission. Suspect may be able to resume when ok per primary service and Pulmonology. H/H relatively stable. (2) UTI (urinary tract infection): Code(s): N39.0 - Urinary tract infection, site not specified Status: Acute Assessment and Plan: Continue treatment. Per primary service. (3) Cervical spine fracture: Code(s): S12.9XXA - Fracture of neck, unspecified, initial encounter Status: Acute Assessment and Plan: Paralysis below neck. Per primary service. (4) Hemoptysis: Code(s): R04.2 - Hemoptysis Status: Acute Assessment and Plan: No reported recurrence. Eliquis remains on hold. As above. Resume when okay from primary and pulmonary perspective. Subjective Date/time seen: Date of service:12/22/21 08:52 Interval history: 86-year-old seen in follow-up for AFib, UTI, C4 fracture, and pneumonia Date of service 12/19/2021: Heart rate is much better controlled on oral metoprolol and with treatment of his infections. Breathing okay Date of service 12/20/2021: Heart rate is fluctuating. Elevated now but has not received his medications yet. No chest pain or shortness of breath Date of service 12/21/2021: Feels better overall. No chest pain or shortness of breath date of service 12/22/2021: Patient states he feels okay. Coughing up sputum denies red blood or dark sputum. Denies shortness of breath or chest pain. Feels okay. No new issues overnight. Remains tachycardic in atrial fibrillation heart rate 110's to 130s. Review of Systems Review of Systems: All systems reviewed & are unremarkable except as noted in HPI and below Constitutional: Constitutional: Reports as per HPI, Denies excessive sweating and Denies headache(s) Eyes: Eyes: Reports as per HPI and Denies blurry vision ENT: Reports as per HPI, Reports Normal hearing present and Denies headache(s) Cardiovascular: Cardiovascular: Reports as per HPI, Denies chest pain and Denies dyspnea Respiratory: Respiratory: Reports as per HPI, Reports cough, Denies hemoptysis and Denies dyspnea Gastrointestinal: Gastrointestinal: Reports as per HPI, Reports constipation and Reports diarrhea Genitourinary: Genitourinary: Denies dysuria Musculoskeletal: Musculoskeletal: Denies joint swelling Integumentary/Breasts: Skin/Breast: Reports as per HPI and Reports wounds Neurologic: Reports as per HPI, Reports Normal hearing present and Denies headache(s) Psychiatric: Psychiatric: Reports as per HPI and Denies anxiety Endocrine: Endocrine: Denies excessive sweating Hematologic/Lymphatic: Hematologic/Lymphatic: Reports easy bleeding Allergic/Immunologic: Allergic/Immunologic: Denies GI upset with certain foods Exam Narrative: Patient awake alert oriented. Appears to be in no acute distress. Appears stated age lying supine in bed. Const: General: comfortable and no acute distress HENMT: General nose exam: Normal nares present Eyes: Sclera: sclerae normal Neck: Neck: supple and no JVD Chest: Other: No chest wall deformities Resp: Auscultation: clear to auscultation bilaterally Cardio: Rate: tachycardic Rhythm: abnormal rhythm irregularly irregular GI: Auscultation: normal bowel sounds Skin: General skin exam: normal color Neuro: Cranial nerves: Yes Normal hearing present Cognition (Neuro): normal cognition Speech: normal speech Other: Paralysis below ne
[2021-12-22] MEDS: FERROUS SULFATE LIQUID 325 MG/7.4 ML ELIXIR FEED TUBE ×2 (10:18→16:57)
[2021-12-22] MEDS: METOPROLOL TARTRATE 25 MG TABLET 75 MG FEED TUBE ×3 (10:18→17:01)
[2021-12-22] MEDS: FINASTERIDE 5 MG TABLET FEED TUBE (10:19)
[2021-12-22] MEDS: IRON SUCROSE COMPLEX 100 MG in SODIUM CHLORIDE 0.9% IV 50 ML 220 MG IVPB (10:19)
[2021-12-22] MEDS: DULoxetine HCL 20 MG CAPSULE.DR PO (10:19)
[2021-12-22] MEDS: TIMOLOL MALEATE 0.25% OP SOLN 5 ML BOTTLE 1 DROP EACH EYE ×2 (10:20→21:33)
[2021-12-22] MEDS: TOLNAFTATE 1% POWDER 45 GM BTL 1 APPLIC TOPICAL ×2 (10:21→21:34)
[2021-12-22 10:31] LABS: Lactic Acid Reflex 1.3 mmol/L (0.7-2.1)
[2021-12-22] MEDS: ACETAMINOPHEN ELIXIR 325 MG/10.15 ML UDC 650 MG FEED TUBE (12:04)
[2021-12-22] MEDS: SILVERGEL (ELTA) 45 ML 1 APPLIC TOPICAL (12:05)
[2021-12-22] MEDS: DOXYCYCLINE 100 MG/NS 100 ML 100 MG/100 ML BAG IVPB (14:07)
--- NOTE | 2021-12-22 16:17 | P.PNIM_ITS ---
Progress Note: A&P Assessment and Plan (1) Hemoptysis: Code(s): R04.2 - Hemoptysis Status: Acute Assessment and Plan: * Noted bleeding on Eliquis * Eliquis has been stopped * Chest x-ray shows left basilar airspace opacity * Chest CT shows patchy airspace opacities a lower lobes * Sputum culture ordered and pending * IV antibiotics * Pulmonary consult for recommendations 12/19/2021 Interval history: patient presented with hemoptysis seen by cylinder press feeder and suspect most likely secondary to pneumonia as patient has community-acquired pneumonia being treated with imipenem and doxycycline and also aggravated by Eliquis, patient hemoptysis has resolved and has no complaint of cough with the present, patient also has history of atrial fibrillation went into RVR was started on diltiazem drip, seen by garnett machine operator suspect aggravated by pneumonia, diltiazem drip stopped, patient on metoprolol rate is controlled will continue to monitor. Cardiology is recommending to hold Eliquis concerning for hemoptysis, once clinically stable will have a PT OT evaluate the patient patient will benefit going to rehab. 12/20/2021 interval history: today patient remains clinically stable however patient with atrial fibrillation with RVR the rate is not controlled seen by garnett machine operator suspect secondary to underlying infection with pneumonia, UTI, garnett machine operator increased metoprolol 50 mg t.i.d. from b.i.d., patient is being treated with imipenem and doxycycline for pneumonia urine culture is growing Gram-negative bacilli will follow-up on urine culture and may adjust antibiotics if needed, and also has a iron deficiency anemia will start the patient on Venofer, by cylinder press feeder and further recommendation to follow. 12/21/2021 interval history: today patient remains clinically stable however patient with atrial fibrillation with RVR the rate was not controlled seen by garnett machine operator suspect secondary to underlying infection with pneumonia, UTI, garnett machine operator increased metoprolol 50 mg t.i.d. from b.i.d., today patient HR is more close to normal, patient is being treated with imipenem and doxycycline for pneumonia urine culture is growing E coli will continue imipenem and also has a iron deficiency anemia will start the patient on Venofer, by cylinder press feeder and further recommendation to follow. May discharge him tomorrow. 12/22/2021 interval history: today patient remains clinically stable however patient with atrial fibrillation with RVR the rate was not controlled seen by garnett machine operator suspect secondary to underlying infection with pneumonia, UTI, garnett machine operator increased metoprolol 50 mg t.i.d. from b.i.d. however patient heart rate is still elevated and today increased metoprolol to 75 mg t.i.d. will continue to monitor, , patient is being treated with imipenem and doxycycline for pneumonia urine culture is growing E coli will continue imipenem and also has a iron deficiency anemia will start the patient on Venofer, by cylinder press feeder and further recommendation to follow. upon arrival patient had hemoptysis most likely secondary to pneumonia his Eliquis being held will check with the cylinder press feeder to resume the medication,May discharge him tomorrow. (2) Pneumonia: Code(s): J18.9 - Pneumonia, unspecified organism Status: Acute Assessment and Plan: * Pneumonia seen with chest x-ray and the CT * Pulmonary consult * IV antibiotics * Trend labs * See above (3) Sepsis: Qualifiers: Sepsis acute organ dysfunction status: unspecified Sepsis type: sepsis due to unspecified organism Qualified Code(s): A41.9 - Sepsis, unspecified organism
--- NOTE | 2021-12-22 16:17 | PM.IMPN ---
Progress Note: A&P Assessment and Plan (1) Hemoptysis: Code(s): R04.2 - Hemoptysis Status: Acute Assessment and Plan: Noted bleeding on Eliquis Eliquis has been stopped Chest x-ray shows left basilar airspace opacity Chest CT shows patchy airspace opacities a lower lobes Sputum culture ordered and pending IV antibiotics Pulmonary consult for recommendations 12/19/2021 Interval history: patient presented with hemoptysis seen by rubber heel and sole press tender and suspect most likely secondary to pneumonia as patient has community-acquired pneumonia being treated with imipenem and doxycycline and also aggravated by Eliquis, patient hemoptysis has resolved and has no complaint of cough with the present, patient also has history of atrial fibrillation went into RVR was started on diltiazem drip, seen by die polisher suspect aggravated by pneumonia, diltiazem drip stopped, patient on metoprolol rate is controlled will continue to monitor. Cardiology is recommending to hold Eliquis concerning for hemoptysis, once clinically stable will have a PT OT evaluate the patient patient will benefit going to rehab. 12/20/2021 interval history: today patient remains clinically stable however patient with atrial fibrillation with RVR the rate is not controlled seen by die polisher suspect secondary to underlying infection with pneumonia, UTI, die polisher increased metoprolol 50 mg t.i.d. from b.i.d., patient is being treated with imipenem and doxycycline for pneumonia urine culture is growing Gram-negative bacilli will follow-up on urine culture and may adjust antibiotics if needed, and also has a iron deficiency anemia will start the patient on Venofer, by rubber heel and sole press tender and further recommendation to follow. 12/21/2021 interval history: today patient remains clinically stable however patient with atrial fibrillation with RVR the rate was not controlled seen by die polisher suspect secondary to underlying infection with pneumonia, UTI, die polisher increased metoprolol 50 mg t.i.d. from b.i.d., today patient HR is more close to normal, patient is being treated with imipenem and doxycycline for pneumonia urine culture is growing E coli will continue imipenem and also has a iron deficiency anemia will start the patient on Venofer, by rubber heel and sole press tender and further recommendation to follow. May discharge him tomorrow. 12/22/2021 interval history: today patient remains clinically stable however patient with atrial fibrillation with RVR the rate was not controlled seen by die polisher suspect secondary to underlying infection with pneumonia, UTI, die polisher increased metoprolol 50 mg t.i.d. from b.i.d. however patient heart rate is still elevated and today increased metoprolol to 75 mg t.i.d. will continue to monitor, , patient is being treated with imipenem and doxycycline for pneumonia urine culture is growing E coli will continue imipenem and also has a iron deficiency anemia will start the patient on Venofer, by rubber heel and sole press tender and further recommendation to follow. upon arrival patient had hemoptysis most likely secondary to pneumonia his Eliquis being held will check with the rubber heel and sole press tender to resume the medication,May discharge him tomorrow. (2) Pneumonia: Code(s): J18.9 - Pneumonia, unspecified organism Status: Acute Assessment and Plan: Pneumonia seen with chest x-ray and the CT Pulmonary consult IV antibiotics Trend labs See above (3) Sepsis: Qualifiers: Sepsis acute organ dysfunction status: unspecified Sepsis type: sepsis due to unspecified organism Qualified Code(s): A41.9 - Sepsis, unspecified organism Code(s): A41.9 - Sepsis, unspecified organism Status: Acute Assessment and Plan: Sepsis criteria met by tachycardia, leukocytosis, lactic acidosis, tachypnea, source of infection Q sofa score is a 2 with mild confusion and respiratory rate greater than 22 Lactic acid upon
--- NOTE | 2021-12-22 18:38 | PM.PNPUL ---
Progress Note: A&P Assessment and Plan (1) Pneumonia: Code(s): J18.9 - Pneumonia, unspecified organism Status: Acute Assessment and Plan: He has community acquired pneumonia with a chest CT showing scattered infiltrates in the bases, with crackles and rhonchi in the left base. He has difficulty clearing secretions. Cornet valve is not yielding any secretions. Continue empiric antibiotics. He does not need supplemental O2 while awake. He has problems with his swallowing, failed his swallow today. The patient tells me that he will have a repeat swallow study tomorrow. He has Speech Therapy at home. PLAN: Continue to use incentive spirometer. He is not having hemoptysis. He may have aspiration contributing to his pneumonia this admission. He has an abnormal Speech Evaluation during his study yesterday, however his ST today appears improved. He will need to continue Speech Therapy at home, and can work with his incentive spirometer. (2) Hemoptysis: Code(s): R04.2 - Hemoptysis Status: Acute Assessment and Plan: He had hemoptysis prior to admission, none since he arrived 12/18, no recurrence. Will continue to watch closely. His hemoptysis was likely due to pneumonia and is self limited. Eliquis is re-starting. Subjective Date/time seen: 12/22/21 18:38 Dr Paniagua is an 86 year old man seen in follow up for hemoptysis and pneumonia with a left basilar infiltrate. He is stilling problems wit tachycardia, managed by turbine inspector He is on imipenem and doxycycline. His Eliquis was stopped due to hemoptysis, restarted. He has an E Coli UTI, indwelling Lizama. His infection is provoking his rapid atrial fibrillation. C4 spinal cord injury, functional quadriplegic, bedbound. 12/22 - He does not need IV antibiotics. He can restart Eliquis as he has not had hemoptysis since admission. His atrial fib is faster today. He had additional speech therapy today. His exercises are outline in the ST summary; laryngeal adduction and elevation. He is having challenges with hard effortful swallows. This looked adequate during the ST therapy although his MBS yesterday showed that he is not closing his larynx. He is going to aspirate if he eats now. He has an incentive spirometer at [facility] beside, however he is too tired to use it now. We will try again tomorrow. 12/21 - no hemoptysis today. He completed his swallow study, and he aspirates thin liquids.HIs swallow study showed abnormal oral stage with reduced lingual control, coordination, elevation and shaping, reduced tongue movement and shaping, and pharyngeal stage problems with poor lingual control, poor tongue base retraction, reduced lingual closures, elevation and squeeze. Review of Systems Review of Systems: All systems reviewed & are unremarkable except as noted in HPI and below (HPI) Exam Narrative: In room 340 GEN: Not in distress. Alert, head of bed is elevated. He speaks softly. Alert and oriented. CHEST: Equal air entry, symmetric excursion, crackles and rhonchi in the left base. CV: Irregular S1S2 no m/g/r; heart rate is now in the 90s. His HR has been up in the low 100 range, overall more controlled. ABD : decreased bowel sounds, G tube in the LUQ. Extremities : no clubbing, cyanosis, or edema. He does not move his legs or left upper extremity. He has a small amount of movement in his right hand, PSYCH: He is mentally intact, speaks softly. Objective Data Vital Signs Vital Signs: Vital Signs - 24 hr 12/21/21 20:00 12/21/21 20:44 12/22/21 00:00 Temperature 37.4 C Pulse Rate 92 102 H 121 H Respiratory Rate 20 Blood Pressure 132/72 Pulse Oximetry 98 12/22/21 04:00 12/22/21 05:46 12/22/21 08:00 Temperature 36.6 C Pulse Rate 114 H 115 H 116 H Respiratory Rate 18 Blood Pressure 148/88 H Pulse Oximetry
[2021-12-22] MEDS: MELATONIN 5 MG TABLET FEED TUBE (21:33)
[2021-12-22] MEDS: APIXABAN 2.5 MG TABLET PO (21:33)
[2021-12-22] MEDS: traZODone HCL 50 MG TABLET FEED TUBE (21:33)
[2021-12-22] MEDS: LATANOPROST 0.005% OP SOLN 2.5 ML BTL 1 DROP EACH EYE (21:33)
[2021-12-22] MEDS: LORATADINE 10 MG TABLET FEED TUBE (21:33)
[2021-12-23] VITALS (10 sets, daily range): BP systolic 128–141; BP diastolic 75–85; PULSE 90–126; RESP 16–22; TEMP 36.6–36.8; O2SAT 97–98
[2021-12-23] MEDS: DOXYCYCLINE 100 MG/NS 100 ML 100 MG/100 ML BAG IVPB ×3 (00:45→22:30)
[2021-12-23] MEDS: SODIUM CHLORIDE 0.9% IV 1,000 ML 100 ML IV CONT ×2 (00:46→09:00)
[2021-12-23 05:53] LABS: Hematocrit 27.6 % (42.0-52.0); Hemoglobin 8.4 g/dL (14.0-18.0); Mean Corpuscular HGB Conc 30.4 g/dl (32-36); Mean Corpuscular Hemoglobin 26.6 pg (26-34); Mean Corpuscular Volume 87.3 fl (80-100); Mean Platelet Volume 8.8 fl (7.4-10.4); Platelet Count Result 292 k/mm3 (150-375); Red Blood Count 3.16 M/mm3 (4.6-6.20); Red Cell Distribution Width 17.6 % (11.5-14.5); White Blood Count 10.6 K/mm3 (4.5-10.0)
[2021-12-23 06:07] LABS: Alanine Aminotransferase 15 U/L (4-50); Albumin Level 3.1 g/dL (3.5-5.1); Alkaline Phosphatase 89 U/L (38-126); Anion Gap 3 mmol/L (8-16); Aspartate Amino Transferase 26 U/L (17-59); Bilirubin,Total 0.2 mg/dL (0.2-1.3); Blood Urea Nitrogen 21 mg/dL (9-20); Calcium 8.3 mg/dL (8.4-10.2); Carbon Dioxide 25 mmol/L (22-30); Chloride 108 mmol/L (98-107); Estimated CRCL calculation 58 ml/min; Estimated Glomerular Filt Rate > 60; Glucose 131 mg/dL (65-110); Potassium 3.4 mmol/L (3.4-5.0); Sodium 136 mmol/L (137-145)
[2021-12-23] MEDS: METOPROLOL TARTRATE 25 MG TABLET 75 MG FEED TUBE (09:02)
[2021-12-23] MEDS: FINASTERIDE 5 MG TABLET FEED TUBE (09:02)
[2021-12-23] MEDS: POTASSIUM CHLORIDE 20 MEQ PACKET (FOR LIQUID) 40 MEQ PO (09:02)
[2021-12-23] MEDS: FERROUS SULFATE LIQUID 325 MG/7.4 ML ELIXIR FEED TUBE ×2 (09:03→17:14)
[2021-12-23] MEDS: TIMOLOL MALEATE 0.25% OP SOLN 5 ML BOTTLE 1 DROP EACH EYE ×2 (09:04→20:32)
[2021-12-23] MEDS: DULoxetine HCL 20 MG CAPSULE.DR PO (09:04)
[2021-12-23] MEDS: APIXABAN 2.5 MG TABLET PO ×2 (09:06→20:31)
[2021-12-23] MEDS: TOLNAFTATE 1% POWDER 45 GM BTL 1 APPLIC TOPICAL ×2 (09:07→20:32)
[2021-12-23] MEDS: SILVERGEL (ELTA) 45 ML 1 APPLIC TOPICAL (09:09)
[2021-12-23] MEDS: WATER FOR IRRIGATION, STERILE 1,000 ML BOTTLE 1000 ML (09:11)
--- NOTE | 2021-12-23 09:17 | PCSTNOTE ---
Attempted swallowing treatment session, but patient refused therapy at this time. Asked to try to come back later.
--- NOTE | 2021-12-23 10:40 | PCNFU ---
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 Nutrition recommendation: Add banitrol daily for c/o diarrhea Last recorded weight is 60.3 kg. Bowel Motility: +BM 12/21 Labs Reviewed:Hgb:8.4 HCT:27.6 Alb: 3.1 NA:136 BUN:21 Meds Noted:Colace, ferrous sulfate Skin: Stage III pressure area continues Additional Notes: Current nutrition is NPO/TF diet of Jevity 1.5 bolus feedings of 237mL 5x/day with 200mL water flushes per feed. Dietary supplements of Abdelrahman BID providing an additional 80kcal and 2.5g of protein and Prostat BID providing an additional 100kcal and 15g of protein. Tolerating TF well but pt reports diarrhea. Suggested adding banitrol daily for relief. Current nutrition is providing 2135kcal, 110g of protein, and 1900mL of water. Current nutrition is meeting 109% of estimated kcal needs and 104% of estimated protein needs. Monitor TF orders, tolerance, wts, labs, skin. Follow up Wednesday/Fridays
--- NOTE | 2021-12-23 11:08 | PM.PNCARD ---
Progress Note: A&P Assessment and Plan (1) Atrial fibrillation with rapid ventricular response: Code(s): I48.91 - Unspecified atrial fibrillation Status: Acute Assessment and Plan: Patient's atrial fibrillation with rapid ventricular response exacerbated by underlying infection due to UTI and pneumonia. - Continue Metoprolol, change to 100 mg per tube b.i.d.. Given additional 25 mg per tube x1 now. - Eliquis remains on hold out of concerns for hemoptysis at admission. Suspect may be able to resume when ok per primary service and Pulmonology. H/H relatively stable. Resume Eliquis when okay with primary service and pulmonology. Disposition per hospitalist service. (2) UTI (urinary tract infection): Code(s): N39.0 - Urinary tract infection, site not specified Status: Acute Assessment and Plan: Continue treatment. Per primary service. (3) Cervical spine fracture: Code(s): S12.9XXA - Fracture of neck, unspecified, initial encounter Status: Acute Assessment and Plan: Paralysis below neck. Per primary service. (4) Hemoptysis: Code(s): R04.2 - Hemoptysis Status: Acute Assessment and Plan: No reported recurrence. Eliquis remains on hold. As above. Resume when okay from primary and pulmonary perspective. Subjective Date/time seen: Date of service:12/23/21 11:08 Interval history: 86-year-old seen in follow-up for AFib, UTI, C4 fracture, and pneumonia Date of service 12/19/2021: Heart rate is much better controlled on oral metoprolol and with treatment of his infections. Breathing okay Date of service 12/20/2021: Heart rate is fluctuating. Elevated now but has not received his medications yet. No chest pain or shortness of breath Date of service 12/21/2021: Feels better overall. No chest pain or shortness of breath date of service 12/22/2021: Patient states he feels okay. Coughing up sputum denies red blood or dark sputum. Denies shortness of breath or chest pain. Feels okay. No new issues overnight. Remains tachycardic in atrial fibrillation heart rate 110's to 130s. Date of service 12/23/2021: Patient feels fine. Occasional coughing no bleeding. Denies shortness of breath, chest pain or palpitations. Heart rate much better controlled today on telemetry heart rate in the 90s but more rapid this morning 110s to 130s prior to medications. Review of Systems Review of Systems: All systems reviewed & are unremarkable except as noted in HPI and below Constitutional: Constitutional: Reports as per HPI, Denies excessive sweating and Denies headache(s) Eyes: Eyes: Reports as per HPI and Denies blurry vision ENT: Reports as per HPI, Reports Normal hearing present and Denies headache(s) Cardiovascular: Cardiovascular: Reports as per HPI, Denies chest pain and Denies dyspnea Respiratory: Respiratory: Reports as per HPI, Reports cough, Denies hemoptysis and Denies dyspnea Gastrointestinal: Gastrointestinal: Reports as per HPI, Reports constipation and Reports diarrhea Genitourinary: Genitourinary: Denies dysuria Musculoskeletal: Musculoskeletal: Denies joint swelling Integumentary/Breasts: Skin/Breast: Reports as per HPI and Reports wounds Neurologic: Reports as per HPI, Reports Normal hearing present and Denies headache(s) Psychiatric: Psychiatric: Reports as per HPI and Denies anxiety Endocrine: Endocrine: Denies excessive sweating Hematologic/Lymphatic: Hematologic/Lymphatic: Reports easy bleeding Allergic/Immunologic: Allergic/Immunologic: Denies GI upset with certain foods Exam Narrative: Patient awake alert oriented. Appears to be in no acute distress. Appears stated age lying supine in bed. Const: General: comfortable and no acute distress HENMT: General nose exam: Normal nares present Eyes: Sclera: sclerae normal Neck: Neck: supple and no JVD Chest: Other: No chest wall deformities Resp: A
[2021-12-23] MEDS: METOPROLOL TARTRATE 25 MG TABLET FEED TUBE (13:06)
[2021-12-23] MEDS: traMADol HCL (*CRX) 50 MG TABLET PO (13:12)
--- NOTE | 2021-12-23 13:28 | PM.PNPUL ---
Progress Note: A&P Assessment and Plan (1) Pneumonia: Code(s): J18.9 - Pneumonia, unspecified organism Status: Acute Assessment and Plan: He has community acquired pneumonia with a chest CT showing scattered infiltrates in the bases, with crackles and rhonchi in the left base. He has difficulty clearing secretions. Cornet valve is not yielding any secretions. Continue empiric antibiotics. He does not need supplemental O2 while awake. He has problems with his swallowing, failed his swallow today. The patient tells me that he will have a repeat swallow study tomorrow. He has Speech Therapy at home. PLAN: Continue to use incentive spirometer. He is not having hemoptysis. He may have aspiration contributing to his pneumonia this admission. He has an abnormal Speech Evaluation during his study yesterday, however his ST today appears improved. He will need to continue Speech Therapy at home, and can work with his incentive spirometer. (2) Hemoptysis: Code(s): R04.2 - Hemoptysis Status: Acute Assessment and Plan: He had hemoptysis prior to admission, none since he arrived 12/18, no recurrence. Will continue to watch closely. His hemoptysis was likely due to pneumonia and is self limited. Eliquis is re-starting. Subjective Date/time seen: 12/23/21 13:28 Dr Paniagua is an 86 year old man seen in follow up for hemoptysis and pneumonia with a left basilar infiltrate. He is stilling problems wit tachycardia, managed by long term care administrator He is on imipenem and doxycycline. His Eliquis was stopped due to hemoptysis, restarted. He has an E Coli UTI, indwelling Lizama. His infection is provoking his rapid atrial fibrillation. C4 spinal cord injury, functional quadriplegic, bedbound. 12/23 He had increased heart rate today, and cardiology is increasing some medications. He remains on room air. He is able to use his Incentive Spirometer slightly over 1 L. This is a good start. He was not quite upright in bed, higher that 25%. 12/22 - He does not need IV antibiotics. He can restart Eliquis as he has not had hemoptysis since admission. His atrial fib is faster today. He had additional speech therapy today. His exercises are outline in the ST summary; laryngeal adduction and elevation. He is having challenges with hard effortful swallows. This looked adequate during the ST therapy although his MBS yesterday showed that he is not closing his larynx. He is going to aspirate if he eats now. He has an incentive spirometer at [facility] beside, however he is too tired to use it now. We will try again tomorrow. 12/21 - no hemoptysis today. He completed his swallow study, and he aspirates thin liquids.HIs swallow study showed abnormal oral stage with reduced lingual control, coordination, elevation and shaping, reduced tongue movement and shaping, and pharyngeal stage problems with poor lingual control, poor tongue base retraction, reduced lingual closures, elevation and squeeze. Review of Systems Review of Systems: All systems reviewed & are unremarkable except as noted in HPI and below (HPI) Exam Narrative: In room 340 GEN: Not in distress. Alert, head of bed is elevated. He speaks softly. Alert and oriented. CHEST: Equal air entry, symmetric excursion, crackles and rhonchi in the left base. CV: Irregular S1S2 no m/g/r; heart rate is now in the 90s. His HR has been up in the low 100 range, overall more controlled. ABD : decreased bowel sounds, G tube in the LUQ. Extremities : no clubbing, cyanosis, or edema. He does not move his legs or left upper extremity. He has a small amount of movement in his right hand, PSYCH: He is mentally intact, speaks softly. Objective Data Vital Signs Vital Signs: Vital Signs - 24 hr 12/22/21 13:59 12/22/21 16:00 12/22/21 20:00 Temperature 37.2 C Pulse Rate 84 97
--- NOTE | 2021-12-23 14:01 | PM.IMPN ---
Progress Note: A&P Assessment and Plan (1) Hemoptysis: Code(s): R04.2 - Hemoptysis Status: Acute Assessment and Plan: Noted bleeding on Eliquis Eliquis has been stopped Chest x-ray shows left basilar airspace opacity Chest CT shows patchy airspace opacities a lower lobes Sputum culture ordered and pending IV antibiotics Pulmonary consult for recommendations 12/19/2021 Interval history: patient presented with hemoptysis seen by line cleaner and suspect most likely secondary to pneumonia as patient has community-acquired pneumonia being treated with imipenem and doxycycline and also aggravated by Eliquis, patient hemoptysis has resolved and has no complaint of cough with the present, patient also has history of atrial fibrillation went into RVR was started on diltiazem drip, seen by supervisor color making suspect aggravated by pneumonia, diltiazem drip stopped, patient on metoprolol rate is controlled will continue to monitor. Cardiology is recommending to hold Eliquis concerning for hemoptysis, once clinically stable will have a PT OT evaluate the patient patient will benefit going to rehab. 12/20/2021 interval history: today patient remains clinically stable however patient with atrial fibrillation with RVR the rate is not controlled seen by supervisor color making suspect secondary to underlying infection with pneumonia, UTI, supervisor color making increased metoprolol 50 mg t.i.d. from b.i.d., patient is being treated with imipenem and doxycycline for pneumonia urine culture is growing Gram-negative bacilli will follow-up on urine culture and may adjust antibiotics if needed, and also has a iron deficiency anemia will start the patient on Venofer, by line cleaner and further recommendation to follow. 12/21/2021 interval history: today patient remains clinically stable however patient with atrial fibrillation with RVR the rate was not controlled seen by supervisor color making suspect secondary to underlying infection with pneumonia, UTI, supervisor color making increased metoprolol 50 mg t.i.d. from b.i.d., today patient HR is more close to normal, patient is being treated with imipenem and doxycycline for pneumonia urine culture is growing E coli will continue imipenem and also has a iron deficiency anemia will start the patient on Venofer, by line cleaner and further recommendation to follow. May discharge him tomorrow. 12/22/2021 interval history: today patient remains clinically stable however patient with atrial fibrillation with RVR the rate was not controlled seen by supervisor color making suspect secondary to underlying infection with pneumonia, UTI, supervisor color making increased metoprolol 50 mg t.i.d. from b.i.d. however patient heart rate is still elevated and today increased metoprolol to 75 mg t.i.d. will continue to monitor, , patient is being treated with imipenem and doxycycline for pneumonia urine culture is growing E coli will continue imipenem and also has a iron deficiency anemia will start the patient on Venofer, by line cleaner and further recommendation to follow. upon arrival patient had hemoptysis most likely secondary to pneumonia his Eliquis being held will check with the line cleaner to resume the medication,May discharge him tomorrow. 12/23/2021 interval history: today patient remains clinically stable however patient with atrial fibrillation with RVR the rate was not controlled seen by supervisor color making suspect secondary to underlying infection with pneumonia, UTI, supervisor color making increased metoprolol 50 mg t.i.d. from b.i.d. on 12/21 however patient heart rate was still elevated and on 12/22 increased metoprolol to 75 mg t.i.d. again today his HR is over 100 and supervisor color making increased metoprolol to 100mg TID, will add xanax 0.25mg TID PRN to reduce anxiety to help with HR, , patient is being treated with imipenem and doxycycline for pneumonia urine culture is growing E coli will continue imipenem and also has a iron deficiency anemia will start the patient on Venof
[2021-12-23] MEDS: METOPROLOL TARTRATE 50 MG TAB 100 MG FEED TUBE (17:14)
[2021-12-23] MEDS: LORATADINE 10 MG TABLET FEED TUBE (20:31)
[2021-12-23] MEDS: traZODone HCL 50 MG TABLET FEED TUBE (20:31)
[2021-12-23] MEDS: MELATONIN 5 MG TABLET FEED TUBE (20:31)
[2021-12-23] MEDS: LATANOPROST 0.005% OP SOLN 2.5 ML BTL 1 DROP EACH EYE (20:32)
[2021-12-24] VITALS (12 sets, daily range): BP systolic 99–130; BP diastolic 49–83; PULSE 75–113; RESP 17–20; TEMP 36.4–37.1; O2SAT 94–98
[2021-12-24] MEDS: traMADol HCL (*CRX) 50 MG TABLET PO ×3 (00:34→21:01)
--- NOTE | 2021-12-24 00:48 | PC.NURSE ---
Pt had a 237 ml blous due at 2200 on 12/23/21. The feed product was not available until 0030, this is when bolus was given.
[2021-12-24] MEDS: SODIUM CHLORIDE 0.9% IV 1,000 ML 100 ML IV CONT (02:47)
[2021-12-24 05:09] LABS: Hemoglobin 8.1 g/dL (14.0-18.0); Mean Corpuscular HGB Conc 28.9 g/dl (32-36); Mean Corpuscular Hemoglobin 26.2 pg (26-34); Mean Corpuscular Volume 90.6 fl (80-100); Mean Platelet Volume 9.3 fl (7.4-10.4); Platelet Count Result 295 k/mm3 (150-375); Red Blood Count 3.09 M/mm3 (4.6-6.20); Red Cell Distribution Width 18.8 % (11.5-14.5); White Blood Count 10.4 K/mm3 (4.5-10.0)
[2021-12-24 05:20] LABS: Alanine Aminotransferase 13 U/L (4-50); Alkaline Phosphatase 80 U/L (38-126); Anion Gap 6 mmol/L (8-16); Aspartate Amino Transferase 23 U/L (17-59); Bilirubin,Total < 0.1 mg/dL (0.2-1.3); Blood Urea Nitrogen 25 mg/dL (9-20); Calcium 8.2 mg/dL (8.4-10.2); Carbon Dioxide 21 mmol/L (22-30); Chloride 110 mmol/L (98-107); Estimated CRCL calculation 66 ml/min; Estimated Glomerular Filt Rate > 60; Glucose 189 mg/dL (65-110); Potassium 3.9 mmol/L (3.4-5.0); Sodium 137 mmol/L (137-145)
[2021-12-24] MEDS: DULoxetine HCL 20 MG CAPSULE.DR PO (09:30)
[2021-12-24] MEDS: FINASTERIDE 5 MG TABLET FEED TUBE (09:30)
[2021-12-24] MEDS: APIXABAN 2.5 MG TABLET PO ×2 (09:30→21:00)
[2021-12-24] MEDS: METOPROLOL TARTRATE 50 MG TAB 100 MG FEED TUBE ×2 (09:32→18:46)
[2021-12-24] MEDS: FERROUS SULFATE LIQUID 325 MG/7.4 ML ELIXIR FEED TUBE ×2 (09:33→18:45)
[2021-12-24] MEDS: TIMOLOL MALEATE 0.25% OP SOLN 5 ML BOTTLE 1 DROP EACH EYE ×2 (09:35→21:01)
[2021-12-24] MEDS: TOLNAFTATE 1% POWDER 45 GM BTL 1 APPLIC TOPICAL ×2 (09:36→21:06)
[2021-12-24] MEDS: SILVERGEL (ELTA) 45 ML 1 APPLIC TOPICAL (09:36)
--- NOTE | 2021-12-24 09:52 | PM.PNPUL ---
Progress Note: A&P Assessment and Plan (1) Pneumonia: Code(s): J18.9 - Pneumonia, unspecified organism Status: Acute Assessment and Plan: He has community acquired pneumonia with a chest CT showing scattered infiltrates in the bases, slightly worse CXR December 22. Today 12/24, he has decreased breath sounds in the left base., new. He appears to have more edema. Will need more diuresis, pulmonary physiotherapy. I left a message for his daughter on her phone, and talked with Dr Severino, Dr Baker and Chemical Packager Pam Newell. He is not ready to go home today. PLAN: Will repeat CXR, re-start Pulmozyme, increase use of Cornet valve with pulmozyme, chest physiotherapy, empiric antibiotics, procalcitonin, and see if he needs a bronchoscopy. He is not having hemoptysis, but might be plugging. Still does not need supplemental O2. s He may have aspiration contributing to his pneumonia this admission. He has an abnormal Speech Evaluation during his study yesterday, however his ST today appears improved. He will need to continue Speech Therapy at home, and can work with his incentive spirometer. (2) Hemoptysis: Code(s): R04.2 - Hemoptysis Status: Acute Assessment and Plan: He had hemoptysis prior to admission, none since he arrived 12/18, no recurrence. Will continue to watch closely. His hemoptysis was likely due to pneumonia and is self limited. Eliquis is re-starting. Subjective Date/time seen: 12/24/21 09:52 Dr Paniagua is an 86 year old man seen in follow up for hemoptysis and pneumonia with a left basilar infiltrate. He has not had hemoptysis since admission. Apixaban restarted December 22. His room air saturation today is 96-98%. On exam, he has absence of breath sounds in the left base. This is worse compared to prior exams. Also has few wheezes. His ankles are swollen. He can achieve 1 L using the incentive spirometer. We were hoping he would be ready for discharge, however he is having some set backs today. On imipenem and doxycycline since December 19, so 6 days. He has an E Coli UTI, indwelling Lizama. His infection is provoking his rapid atrial fibrillation. C4 spinal cord injury, functional quadriplegic, bedbound. 12/24 - Decreased breath sounds Left base. Swollen ankles. Repeat CXR. 12/23 - He had increased heart rate today, and cardiology is increasing some medications. He remains on room air. He is able to use his Incentive Spirometer slightly over 1 L. This is a good start. He was not quite upright in bed, higher that 45 degrees. 12/22 - He does not need IV antibiotics. He can restart Eliquis as he has not had hemoptysis since admission. His atrial fib is faster today. He had additional speech therapy today. His exercises are outline in the ST summary; laryngeal adduction and elevation. He is having challenges with hard effortful swallows. This looked adequate during the ST therapy although his esterday showed that he is not closing his larynx. He is going to aspirate if he eats now. He has an incentive spirometer at [facility] beside, however he is too tired to use it now. We will try again tomorrow. 12/21 - no hemoptysis today. He completed his swallow study, and he aspirates thin liquids.HIs swallow study showed abnormal oral stage with reduced lingual control, coordination, elevation and shaping, reduced tongue movement and shaping, and pharyngeal stage problems with poor lingual control, poor tongue base retraction, reduced lingual closures, elevation and squeeze. Review of Systems Review of Systems: All systems reviewed & are unremarkable except as noted in HPI and below Exam Narrative: In room 340 GEN: Not in distress. Alert, head of bed is elevated. He speaks softly. Alert and oriented. CHEST: Absent breath sounds left base. Rare Wheeze. CV: Irregular S1S2 no m/g/r;
[2021-12-24] MEDS: FUROSEMIDE INJ 40 MG/4 ML VIAL 20 MG IV PUSH ×3 (11:22→18:45)
[2021-12-24] MEDS: DOXYCYCLINE 100 MG/NS 100 ML 100 MG/100 ML BAG IVPB ×2 (11:28→22:53)
--- NOTE | 2021-12-24 12:06 | PM.PNCARD ---
Progress Note: A&P Assessment and Plan (1) CHF (congestive heart failure): Qualifiers: Heart failure type: diastolic Heart failure chronicity: acute Qualified Code(s): I50.31 - Acute diastolic (congestive) heart failure Code(s): I50.9 - Heart failure, unspecified Status: Acute Assessment and Plan: This is a new, acute issue. Patient with crackles on exam, worsening chest x-ray with pulmonary vascular congestion abdominal fullness lower extremity edema suggestive of volume overload. Agree with IV Lasix. Will given additional IV 20 mg to equal 40 mg this morning. Add Lasix 20 mg IV b.i.d.. Monitor renal function electrolytes, BP. Likely 2nd IV fluids, acute illness. Consider repeat echo if not responding as expected. EF preserved July 2021. Doubt tachy induced cardiomyopathy as contribution. Discussed with patient and his daughter and at bedside. All questions answered to their satisfaction. Further recommendation to follow based on patient's clinical status and response to therapy. Repeat chest x-ray in a.m.. Greatly appreciate pulmonology involvement and recommendations. He is not stable for discharge at this time given this change in clinical status. (2) Atrial fibrillation with rapid ventricular response: Code(s): I48.91 - Unspecified atrial fibrillation Status: Acute Assessment and Plan: Patient's atrial fibrillation with rapid ventricular response exacerbated by underlying infection due to UTI and pneumonia. - Continue [id number] mg per tube b.i.d.. Heart rate well controlled at this time. -Eliquis resumed. Monitor for bleeding. (3) UTI (urinary tract infection): Code(s): N39.0 - Urinary tract infection, site not specified Status: Acute Assessment and Plan: Continue treatment. Per primary service. (4) Hemoptysis: Code(s): R04.2 - Hemoptysis Status: Acute Assessment and Plan: No reported recurrence. Eliquis resumed. (5) Cervical spine fracture: Code(s): S12.9XXA - Fracture of neck, unspecified, initial encounter Status: Acute Assessment and Plan: Paralysis below neck. Per primary service. Subjective Date/time seen: Date of service: 12/24/21 12:06 Interval history: 86-year-old seen in follow-up for AFib, UTI, C4 fracture, and pneumonia Date of service 12/19/2021: Heart rate is much better controlled on oral metoprolol and with treatment of his infections. Breathing okay Date of service 12/20/2021: Heart rate is fluctuating. Elevated now but has not received his medications yet. No chest pain or shortness of breath Date of service 12/21/2021: Feels better overall. No chest pain or shortness of breath date of service 12/22/2021: Patient states he feels okay. Coughing up sputum denies red blood or dark sputum. Denies shortness of breath or chest pain. Feels okay. No new issues overnight. Remains tachycardic in atrial fibrillation heart rate 110's to 130s. Date of service 12/23/2021: Patient feels fine. Occasional coughing no bleeding. Denies shortness of breath, chest pain or palpitations. Heart rate much better controlled today on telemetry heart rate in the 90s but more rapid this morning 110s to 130s prior to medications. Date of service 12/24/2021: Heart rate better controlled on telemetry generally in the 90s. Patient appears more short of breath this morning although he denies this. Denies change in cough, no hemoptysis. Remains on room air. Review of Systems Review of Systems: All systems reviewed & are unremarkable except as noted in HPI and below Constitutional: Constitutional: Reports as per HPI, Denies excessive sweating and Denies headache(s) Eyes: Eyes: Reports as per HPI and Denies blurry vision ENT: Reports as per HPI, Reports Normal hearing present and Denies headache(s) Cardiovascular: Cardiovascular: Reports as per HPI, Denies chest
--- NOTE | 2021-12-24 16:03 | PM.IMPN ---
Progress Note: A&P Assessment and Plan (1) Hemoptysis: Code(s): R04.2 - Hemoptysis Status: Acute Assessment and Plan: Noted bleeding on Eliquis Eliquis has been stopped Chest x-ray shows left basilar airspace opacity Chest CT shows patchy airspace opacities a lower lobes Sputum culture ordered and pending IV antibiotics Pulmonary consult for recommendations 12/19/2021 Interval history: patient presented with hemoptysis seen by trans router and suspect most likely secondary to pneumonia as patient has community-acquired pneumonia being treated with imipenem and doxycycline and also aggravated by Eliquis, patient hemoptysis has resolved and has no complaint of cough with the present, patient also has history of atrial fibrillation went into RVR was started on diltiazem drip, seen by digital controls technical officer suspect aggravated by pneumonia, diltiazem drip stopped, patient on metoprolol rate is controlled will continue to monitor. Cardiology is recommending to hold Eliquis concerning for hemoptysis, once clinically stable will have a PT OT evaluate the patient patient will benefit going to rehab. 12/20/2021 interval history: today patient remains clinically stable however patient with atrial fibrillation with RVR the rate is not controlled seen by digital controls technical officer suspect secondary to underlying infection with pneumonia, UTI, digital controls technical officer increased metoprolol 50 mg t.i.d. from b.i.d., patient is being treated with imipenem and doxycycline for pneumonia urine culture is growing Gram-negative bacilli will follow-up on urine culture and may adjust antibiotics if needed, and also has a iron deficiency anemia will start the patient on Venofer, by trans router and further recommendation to follow. 12/21/2021 interval history: today patient remains clinically stable however patient with atrial fibrillation with RVR the rate was not controlled seen by digital controls technical officer suspect secondary to underlying infection with pneumonia, UTI, digital controls technical officer increased metoprolol 50 mg t.i.d. from b.i.d., today patient HR is more close to normal, patient is being treated with imipenem and doxycycline for pneumonia urine culture is growing E coli will continue imipenem and also has a iron deficiency anemia will start the patient on Venofer, by trans router and further recommendation to follow. May discharge him tomorrow. 12/22/2021 interval history: today patient remains clinically stable however patient with atrial fibrillation with RVR the rate was not controlled seen by digital controls technical officer suspect secondary to underlying infection with pneumonia, UTI, digital controls technical officer increased metoprolol 50 mg t.i.d. from b.i.d. however patient heart rate is still elevated and today increased metoprolol to 75 mg t.i.d. will continue to monitor, , patient is being treated with imipenem and doxycycline for pneumonia urine culture is growing E coli will continue imipenem and also has a iron deficiency anemia will start the patient on Venofer, by trans router and further recommendation to follow. upon arrival patient had hemoptysis most likely secondary to pneumonia his Eliquis being held will check with the trans router to resume the medication,May discharge him tomorrow. 12/23/2021 interval history: today patient remains clinically stable however patient with atrial fibrillation with RVR the rate was not controlled seen by digital controls technical officer suspect secondary to underlying infection with pneumonia, UTI, digital controls technical officer increased metoprolol 50 mg t.i.d. from b.i.d. on 12/21 however patient heart rate was still elevated and on 12/22 increased metoprolol to 75 mg t.i.d. again today his HR is over 100 and digital controls technical officer increased metoprolol to 100mg TID, will add xanax 0.25mg TID PRN to reduce anxiety to help with HR, , patient is being treated with imipenem and doxycycline for pneumonia urine culture is growing E coli will continue imipenem and also has a iron deficiency anemia will start the patient on Venof
[2021-12-24] MEDS: traZODone HCL 50 MG TABLET FEED TUBE (21:00)
[2021-12-24] MEDS: MELATONIN 5 MG TABLET FEED TUBE (21:00)
[2021-12-24] MEDS: LATANOPROST 0.005% OP SOLN 2.5 ML BTL 1 DROP EACH EYE (21:01)
[2021-12-24] MEDS: LORATADINE 10 MG TABLET FEED TUBE (21:01)
[2021-12-24] MEDS: DORNASE ALFA INH SOLN 1 MG/ML 2.5 ML AMP 2.5 MG INHALATION (21:44)
[2021-12-25] VITALS (14 sets, daily range): BP systolic 109–133; BP diastolic 72–78; PULSE 78–115; RESP 16–20; TEMP 36.6; O2SAT 96–97
[2021-12-25 05:58] LABS: Hematocrit 28.6 % (42.0-52.0); Hemoglobin 8.6 g/dL (14.0-18.0); Mean Corpuscular HGB Conc 30.1 g/dl (32-36); Mean Corpuscular Hemoglobin 26.8 pg (26-34); Mean Corpuscular Volume 89.1 fl (80-100); Mean Platelet Volume 9.3 fl (7.4-10.4); Platelet Count Result 320 k/mm3 (150-375); Red Blood Count 3.21 M/mm3 (4.6-6.20); Red Cell Distribution Width 19.3 % (11.5-14.5); White Blood Count 9.8 K/mm3 (4.5-10.0)
[2021-12-25 06:12] LABS: Alanine Aminotransferase 11 U/L (4-50); Alkaline Phosphatase 86 U/L (38-126); Anion Gap 5 mmol/L (8-16); Aspartate Amino Transferase 21 U/L (17-59); Bilirubin,Total 0.2 mg/dL (0.2-1.3); Blood Urea Nitrogen 30 mg/dL (9-20); Calcium 8.3 mg/dL (8.4-10.2); Carbon Dioxide 28 mmol/L (22-30); Chloride 105 mmol/L (98-107); Estimated CRCL calculation 52 ml/min; Estimated Glomerular Filt Rate > 60; Glucose 119 mg/dL (65-110); Potassium 3.5 mmol/L (3.4-5.0); Sodium 138 mmol/L (137-145)
[2021-12-25] MEDS: SODIUM CHLORIDE 0.9% IV 1,000 ML 100 ML IV CONT (06:52)
[2021-12-25] MEDS: DORNASE ALFA INH SOLN 1 MG/ML 2.5 ML AMP 2.5 MG INHALATION ×2 (08:16→20:04)
[2021-12-25] MEDS: FINASTERIDE 5 MG TABLET FEED TUBE (09:20)
[2021-12-25] MEDS: traMADol HCL (*CRX) 50 MG TABLET PO ×2 (09:20→21:51)
[2021-12-25] MEDS: FERROUS SULFATE LIQUID 325 MG/7.4 ML ELIXIR FEED TUBE ×2 (09:21→18:05)
[2021-12-25] MEDS: APIXABAN 2.5 MG TABLET PO ×2 (09:21→21:48)
[2021-12-25] MEDS: DULoxetine HCL 20 MG CAPSULE.DR PO (09:21)
[2021-12-25] MEDS: FUROSEMIDE INJ 40 MG/4 ML VIAL 20 MG IV PUSH ×2 (09:22→11:20)
[2021-12-25] MEDS: METOPROLOL TARTRATE 50 MG TAB 100 MG FEED TUBE ×2 (09:24→18:05)
[2021-12-25] MEDS: TIMOLOL MALEATE 0.25% OP SOLN 5 ML BOTTLE 1 DROP EACH EYE ×2 (09:24→21:48)
[2021-12-25] MEDS: SILVERGEL (ELTA) 45 ML 1 APPLIC TOPICAL (09:25)
[2021-12-25] MEDS: TOLNAFTATE 1% POWDER 45 GM BTL 1 APPLIC TOPICAL ×2 (09:28→21:47)
--- NOTE | 2021-12-25 10:11 | PCSTNOTE ---
Patient very kindly refused Speech Therapy this date stating that he does not want to continue with Speech Therapy here although he voiced pleasure at the work we have done in the past. Patient is being discharged this date.
--- NOTE | 2021-12-25 10:50 | ECHO_ITS ---
Patient Info Name: Geraldo Paniagua Age: 86 years : 1935 Gender: Male Ht: 65 in Wt: 135 lbs BSA: 1.68 m2 HR: 111 bpm BP: 128 / 78 mmHg Heart Rhythm: Atrial Fibrillation Technical Quality: Fair Exam Date: 12/25/2021 2:02 PM Exam Location: [facility] Pulmonary Exam Room: 340 Patient Status: Inpatient Admit Date: 12/18/2021 Staff Ordering Physician: Trevon Baker MD Sound Effects Manager: Ora Roman RDCS Attending Provider: Shon Patrick MD Referring Physician: Olivia SCHULTE; Exam Type: CA echo doppler color flow Study Info Indications - chf afib Complete two-dimensional, color flow and Doppler transthoracic echocardiogram is performed. Summary 1. Complete two-dimensional, color flow and Doppler transthoracic echocardiogram is performed. 2. Left ventricular chamber dimension is normal. 3. Left ventricular systolic function is normal, estimated at 65-70%. 4. There is no increased left ventricular wall thickness. 5. Left atrial chamber dimension is mildly enlarged. 6. Right atrial chamber dimension is severely enlarged. 7. There is mild mitral valve regurgitation. 8. There is mild tricuspid valve regurgitation. 9. No pulmonary hypertension, estimated pulmonary arterial systolic pressure is 27 mmHg. 10. There is no aortic valve stenosis. Left Ventricle Left ventricular chamber dimension is normal. Left ventricular systolic function is normal, estimated at 65-70%. There is no increased left ventricular wall thickness. The left ventricular diastolic function is indeterminate. Right Ventricle Right ventricular chamber dimension is normal. Right ventricular systolic function is normal. Left Atria Left atrial chamber dimension is mildly enlarged. Right Atria Right atrial chamber dimension is severely enlarged. Aortic Valve The aortic valve is not well visualized. There is no aortic valve stenosis. There is no aortic valve regurgitation. Pulmonic Valve The pulmonic valve is not well visualized. Mitral Valve The mitral valve has normal leaflets. There is mild mitral valve regurgitation. The mitral valve annulus is moderately calcified. Tricuspid Valve The tricuspid valve leaflets are normal. There is mild tricuspid valve regurgitation. No pulmonary hypertension, estimated pulmonary arterial systolic pressure is 27 mmHg. Pericardium/Pleural The pericardium appears normal. There is no pericardial effusion. Inferior Vena Cava Normal inferior vena cava with >50% collapse upon inspiration consistent with normal right atrial pressure, 5 mmHg. Aorta The aortic root size at the sinus of Valsalva is normal. Left Ventricular Outflow Tract Name Value Normal LVOT 2D LVOT Diameter 2.0 cm LVOT Doppler LVOT Peak Gradient 4 mmHg LVOT Mean Gradient 2 mmHg LVOT VTI 18 cm LVOT VTI/AV VTI Ratio 1.0 LVOT Stroke Volume 56 ml LVOT CO 13.4 l/min LVOT CI 8.
--- NOTE | 2021-12-25 10:56 | PM.PNCARD ---
Progress Note: A&P Assessment and Plan (1) CHF (congestive heart failure): Qualifiers: Heart failure type: diastolic Heart failure chronicity: acute Qualified Code(s): I50.31 - Acute diastolic (congestive) heart failure Code(s): I50.9 - Heart failure, unspecified Status: Acute Assessment and Plan: This is a new, acute issue. Exam improved edema persists supple slightly improved. increase Lasix to 40 mg IV b.i.d.. Try to consolidate fluids although need to monitor renal function closely. IV fluids have been discontinued as of yesterday morning. - Will repeat 2D echocardiogram to assess LV systolic/ diastolic function, valve pathology pulmonary pressures. Recommendations to follow. (2) Atrial fibrillation with rapid ventricular response: Code(s): I48.91 - Unspecified atrial fibrillation Status: Acute Assessment and Plan: Patient's atrial fibrillation with rapid ventricular response exacerbated by underlying infection due to UTI and pneumonia. - Continue [id number] mg per tube b.i.d.. Heart rate The more elevated with IV diuresis and discontinuation of IV fluids. Increase if heart rate remains elevated to 125 mg b.i.d. per tube. Will monitor for now. Review echo. -Eliquis resumed. Monitor for bleeding. (3) UTI (urinary tract infection): Code(s): N39.0 - Urinary tract infection, site not specified Status: Acute Assessment and Plan: Continue treatment. Per primary service. (4) Hemoptysis: Code(s): R04.2 - Hemoptysis Status: Acute Assessment and Plan: No reported recurrence. Eliquis resumed. (5) Cervical spine fracture: Code(s): S12.9XXA - Fracture of neck, unspecified, initial encounter Status: Acute Assessment and Plan: Paralysis below neck. Per primary service. Subjective Date/time seen: Date of service:12/25/21 10:56 Interval history: 86-year-old seen in follow-up for AFib, UTI, C4 fracture, and pneumonia And more recent volume overload Date of service 12/19/2021: Heart rate is much better controlled on oral metoprolol and with treatment of his infections. Breathing okay Date of service 12/20/2021: Heart rate is fluctuating. Elevated now but has not received his medications yet. No chest pain or shortness of breath Date of service 12/21/2021: Feels better overall. No chest pain or shortness of breath date of service 12/22/2021: Patient states he feels okay. Coughing up sputum denies red blood or dark sputum. Denies shortness of breath or chest pain. Feels okay. No new issues overnight. Remains tachycardic in atrial fibrillation heart rate 110's to 130s. Date of service 12/23/2021: Patient feels fine. Occasional coughing no bleeding. Denies shortness of breath, chest pain or palpitations. Heart rate much better controlled today on telemetry heart rate in the 90s but more rapid this morning 110s to 130s prior to medications. Date of service 12/24/2021: Heart rate better controlled on telemetry generally in the 90s. Patient appears more short of breath this morning although he denies this. Denies change in cough, no hemoptysis. Remains on room air. date of service 12/25/2021: Patient states he feels much better less short of breath. More comfortable in general. Still feels soreness and his right arm. Edema persists. Responded fairly well with diuresis overnight heart rate a little more elevated today 90s -130s. Review of Systems Review of Systems: All systems reviewed & are unremarkable except as noted in HPI and below Constitutional: Constitutional: Reports as per HPI, Denies excessive sweating and Denies headache(s) Eyes: Eyes: Reports as per HPI and Denies blurry vision ENT: Reports as per HPI, Reports Normal hearing present and Denies headache(s) Cardiovascular: Cardiovascular: Reports as per HPI, Denies chest pain and Denies dyspnea Respiratory: Res
[2021-12-25] MEDS: DOXYCYCLINE 100 MG/NS 100 ML 100 MG/100 ML BAG IVPB ×2 (11:24→21:57)
--- NOTE | 2021-12-25 15:37 | P.PNIM_ITS ---
Progress Note: A&P Assessment and Plan (1) Hemoptysis: Code(s): R04.2 - Hemoptysis Status: Acute Assessment and Plan: * Noted bleeding Likely secondary to pneumonia aggravated by being on Eliquis * Eliquis has been stopped * Chest x-ray shows left basilar airspace opacity * Chest CT shows patchy airspace opacities a lower lobes * Sputum culture ordered but pending collection * IV antibiotics with doxycycline and Primaxin * Pulmonary consult for recommendations * no further hemoptysis and hence Eliquis has now been restarted (2) Pneumonia: Code(s): J18.9 - Pneumonia, unspecified organism Status: Acute Assessment and Plan: * Pneumonia seen with chest x-ray and the CT * Pulmonary consult * IV antibiotics * Trend labs * See above (3) Sepsis: Qualifiers: Sepsis acute organ dysfunction status: unspecified Sepsis type: sepsis due to unspecified organism Qualified Code(s): A41.9 - Sepsis, unspecified organism Code(s): A41.9 - Sepsis, unspecified organism Status: Acute Assessment and Plan: * Sepsis criteria met by tachycardia, leukocytosis, lactic acidosis, tachypnea, source of infection * Q sofa score is a 2 with mild confusion and respiratory rate greater than 22 * Lactic acid upon arrival was 4.5 repeat was 2.8 * Source of infection looks to be pneumonia as indicated on the chest x-ray with left-sided basilar airspace opacities * IV fluids given in the ED and continues IV fluids at 100 mL an hour * Blood cultures no growth to date * Urine culture E coli which is pansensitive * IV antibiotics started however change due to urine culture recently obtained * White blood cell count elevated at 31.5 upon arrival and is currently 24.5 which has now normalized (4) Atrial fibrillation: Code(s): I48.91 - Unspecified atrial fibrillation Status: Acute Assessment and Plan: * Strong history of AFib * Was started on Eliquis however is on hold due to bleedingNo restarted * EKG shows AFib RVR * Tele monitor * Cardiology consult * Cardizem for rate control * also on metoprolol titrated per Cardiology * Adjust therapy as indicated (5) Abnormal finding on urinalysis: Code(s): R82.90 - Unspecified abnormal findings in urine Status: Acute Assessment and Plan: * UA shows clear yellow urine with 2+ blood, positive nitrates, 2+ leukocyte esterase, greater than 75 white blood cells * Cultures pending * Urine culture from 11/15/2021 showed Pseudomonas aeruginosa * Change antibiotics to Primaxin and doxycycline * Tailor antibiotics to culture results * Urinary catheter has been changed (6) 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m cefepime to imipenem * Could be secondary to urinary tract infection * Trend labs * Adjust therapy as indicated (8) BPH (benign prostatic hyperplasia): Code(s): N40.0 - Benign prostatic hyperplasia without lower urinary tract symptoms Status: Acute Assessment and Plan: * Continue finasteri
--- NOTE | 2021-12-25 15:37 | PM.IMPN ---
Progress Note: A&P Assessment and Plan (1) Hemoptysis: Code(s): R04.2 - Hemoptysis Status: Acute Assessment and Plan: Noted bleeding Likely secondary to pneumonia aggravated by being on Eliquis Eliquis has been stopped Chest x-ray shows left basilar airspace opacity Chest CT shows patchy airspace opacities a lower lobes Sputum culture ordered but pending collection IV antibiotics with doxycycline and Primaxin Pulmonary consult for recommendations no further hemoptysis and hence Eliquis has now been restarted (2) Pneumonia: Code(s): J18.9 - Pneumonia, unspecified organism Status: Acute Assessment and Plan: Pneumonia seen with chest x-ray and the CT Pulmonary consult IV antibiotics Trend labs See above (3) Sepsis: Qualifiers: Sepsis acute organ dysfunction status: unspecified Sepsis type: sepsis due to unspecified organism Qualified Code(s): A41.9 - Sepsis, unspecified organism Code(s): A41.9 - Sepsis, unspecified organism Status: Acute Assessment and Plan: Sepsis criteria met by tachycardia, leukocytosis, lactic acidosis, tachypnea, source of infection Q sofa score is a 2 with mild confusion and respiratory rate greater than 22 Lactic acid upon arrival was 4.5 repeat was 2.8 Source of infection looks to be pneumonia as indicated on the chest x-ray with left-sided basilar airspace opacities IV fluids given in the ED and continues IV fluids at 100 mL an hour Blood cultures no growth to date Urine culture E coli which is pansensitive IV antibiotics started however change due to urine culture recently obtained White blood cell count elevated at 31.5 upon arrival and is currently 24.5 which has now normalized (4) Atrial fibrillation: Code(s): I48.91 - Unspecified atrial fibrillation Status: Acute Assessment and Plan: Strong history of AFib Was started on Eliquis however is on hold due to bleedingNo restarted EKG shows AFib RVR Tele monitor Cardiology consult Cardizem for rate control also on metoprolol titrated per Cardiology Adjust therapy as indicated (5) Abnormal finding on urinalysis: Code(s): R82.90 - Unspecified abnormal findings in urine Status: Acute Assessment and Plan: UA shows clear yellow urine with 2+ blood, positive nitrates, 2+ leukocyte esterase, greater than 75 white blood cells Cultures pending Urine culture from 11/15/2021 showed Pseudomonas aeruginosa Change antibiotics to Primaxin and doxycycline Tailor antibiotics to culture results Urinary catheter has been changed (6) 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 - Pressure ulcer of sacral region, unspecified stage Status: Acute Assessment and Plan: Chronic Consult wounds (7) Leukocytosis: Code(s): D72.829 - Elevated white blood cell count, unspecified Status: Acute Assessment and Plan: Wbc's elevated upon arrival at 35 and is currently 24.5 Blood cultures pending Antibiotics changed from cefepime to imipenem Could be secondary to urinary tract infection Trend labs Adjust therapy as indicated (8) BPH (benign prostatic hyperplasia): Code(s): N40.0 - Benign prostatic hyperplasia without lower urinary tract symptoms Status: Acute Assessment and Plan: Continue finasteride 5 mg Trend urine output Outpatient follow-up with Urology (9) Anemia: Code(s): D64.9 - Anemia, unspecified Status: Acute Assessment and Plan: Probably related to acute blood loss Current H&H 9.7/30.5 Will start iron as a iron was less than 10 last visit Supplementation is indicated Trend labs (10) Abdominal distension: Code(s): R14.0 - Abdominal distension (gaseous) Status: Acute Assessment and Plan: will check x-ray abdomen (11) CHF (congestive heart
--- NOTE | 2021-12-25 16:36 | PM.PNPUL ---
Progress Note: A&P Assessment and Plan (1) Pneumonia: Code(s): J18.9 - Pneumonia, unspecified organism Status: Acute Assessment and Plan: He has community acquired pneumonia with a chest CT showing scattered infiltrates in the bases, slightly worse CXR December 22. Today 12/25, he has improved breath sounds in the left base compared to yesterday and he is less edematous. He is not having hemoptysis, has normal sat on room air. He may have aspiration contributing to his pneumonia this admission. He has an abnormal Speech Evaluation during his study yesterday, however his ST today appears improved. He will need to continue Speech Therapy at home, and can work with his incentive spirometer. (2) Hemoptysis: Code(s): R04.2 - Hemoptysis Status: Acute Assessment and Plan: He had hemoptysis prior to admission, none since he arrived 12/18, no recurrence. Will continue to watch closely. His hemoptysis was likely due to pneumonia and is self limited. Eliquis was restarted December 22. Subjective Date/time seen: 12/25/21 16:36 Dr Paniagua is an 86 year old man seen in follow up for hemoptysis prior to admission and pneumonia with a left basilar infiltrate. He is smiling, feels better, however this patient is stoic, always says he is feeling well. He does look better. No hemoptysis since admission. Apixaban restarted December 22. His room air saturation today is 96-98%. On imipenem and doxycycline since December 19. He has had abdominal distention, had dilated loops of bowel, and radiologist recommended either bowel series of abdominal CT. Dr Macias is managing his rapid atrial fibrillation and volume overload. He continues to get diuresis. C4 spinal cord injury, functional quadriplegic, bedbound. 12/25- less edema, echo showed EF 65-70%, enlarged RA, improvement in his pulmonary hypertension. 12/24 - Decreased breath sounds Left base. Swollen ankles. Repeat CXR. More diuresis, echo obtained, increased pulm toilet. 12/23 - He had increased heart rate today, and cardiology is increasing some medications. He remains on room air. He is able to use his Incentive Spirometer slightly over 1 L. This is a good start. He was not quite upright in bed, higher that 45 degrees. 12/22 - He does not need IV antibiotics. He can restart Eliquis as he has not had hemoptysis since admission. His atrial fib is faster today. He had additional speech therapy today. His exercises are outline in the ST summary; laryngeal adduction and elevation. He is having challenges with hard effortful swallows. This looked adequate during the ST therapy although his esterday showed that he is not closing his larynx. He is going to aspirate if he eats now. He has an incentive spirometer at [facility] beside, however he is too tired to use it now. We will try again tomorrow. 12/21 - no hemoptysis today. He completed his swallow study, and he aspirates thin liquids.HIs swallow study showed abnormal oral stage with reduced lingual control, coordination, elevation and shaping, reduced tongue movement and shaping, and pharyngeal stage problems with poor lingual control, poor tongue base retraction, reduced lingual closures, elevation and squeeze. Review of Systems Review of Systems: All systems reviewed & are unremarkable except as noted in HPI and below Exam Narrative: In room 340 GEN: Not in distress. Alert, head of bed is elevated. He speaks softly. Alert and oriented. CHEST: Few crackles left base, otherwise adequate aeration and breath sounds in other parts of his chest. CV: Irregular S1S2 no m/g/r; heart rate is now in the 90s. His HR has been up in the low 100 range, overall more controlled. ABD : Mild distention. Extremities : no clubbing, cyanosis, today with 1+ ankle edema. He does not move his legs or left upper extremity. He has a
[2021-12-25] MEDS: FUROSEMIDE INJ 40 MG/4 ML VIAL IV PUSH (18:04)
[2021-12-25] MEDS: MELATONIN 5 MG TABLET FEED TUBE (21:48)
[2021-12-25] MEDS: traZODone HCL 50 MG TABLET FEED TUBE (21:48)
[2021-12-25] MEDS: LORATADINE 10 MG TABLET FEED TUBE (21:48)
[2021-12-25] MEDS: LATANOPROST 0.005% OP SOLN 2.5 ML BTL 1 DROP EACH EYE (21:48)
[2021-12-26] VITALS (12 sets, daily range): BP systolic 106–127; BP diastolic 60–74; PULSE 77–93; RESP 14–16; TEMP 36.6–36.9; O2SAT 95–96
[2021-12-26 06:09] LABS: Hematocrit 29.1 % (42.0-52.0); Mean Corpuscular HGB Conc 30.9 g/dl (32-36); Mean Corpuscular Hemoglobin 26.5 pg (26-34); Mean Corpuscular Volume 85.8 fl (80-100); Mean Platelet Volume 9.1 fl (7.4-10.4); Platelet Count Result 309 k/mm3 (150-375); Red Blood Count 3.39 M/mm3 (4.6-6.20); Red Cell Distribution Width 19.3 % (11.5-14.5)
[2021-12-26 06:32] LABS: Alanine Aminotransferase 13 U/L (4-50); Albumin Level 3.3 g/dL (3.5-5.1); Alkaline Phosphatase 89 U/L (38-126); Anion Gap 8 mmol/L (8-16); Aspartate Amino Transferase 23 U/L (17-59); Bilirubin,Total 0.3 mg/dL (0.2-1.3); Blood Urea Nitrogen 30 mg/dL (9-20); Calcium 8.4 mg/dL (8.4-10.2); Carbon Dioxide 31 mmol/L (22-30); Chloride 96 mmol/L (98-107); Estimated CRCL calculation 57 ml/min; Estimated Glomerular Filt Rate > 60; Glucose 121 mg/dL (65-110); Magnesium 1.9 mg/dL (1.6-2.3); Potassium 3.4 mmol/L (3.4-5.0); Sodium 135 mmol/L (137-145)
[2021-12-26 06:35] LABS: NT Pro B Type Natriuretic Pept 1670 pg/mL (5-100)
[2021-12-26] MEDS: FINASTERIDE 5 MG TABLET FEED TUBE (08:24)
[2021-12-26] MEDS: METOPROLOL TARTRATE 50 MG TAB 100 MG FEED TUBE ×2 (08:24→16:29)
[2021-12-26] MEDS: APIXABAN 2.5 MG TABLET PO ×2 (08:24→22:15)
[2021-12-26] MEDS: FERROUS SULFATE LIQUID 325 MG/7.4 ML ELIXIR FEED TUBE ×2 (08:24→16:28)
[2021-12-26] MEDS: DULoxetine HCL 20 MG CAPSULE.DR PO (08:25)
[2021-12-26] MEDS: FUROSEMIDE INJ 40 MG/4 ML VIAL IV PUSH ×2 (08:25→16:28)
[2021-12-26] MEDS: SILVERGEL (ELTA) 45 ML 1 APPLIC TOPICAL (08:26)
[2021-12-26] MEDS: TOLNAFTATE 1% POWDER 45 GM BTL 1 APPLIC TOPICAL ×2 (08:26→22:16)
[2021-12-26] MEDS: TIMOLOL MALEATE 0.25% OP SOLN 5 ML BOTTLE 1 DROP EACH EYE ×2 (08:27→22:14)
--- NOTE | 2021-12-26 09:42 | PCRCNOTE ---
Window of time for administration has passed. See next scheduled administration.
--- NOTE | 2021-12-26 10:16 | P.PNIM_ITS ---
Progress Note: A&P Assessment and Plan (1) Hemoptysis: Code(s): R04.2 - Hemoptysis Status: Acute Assessment and Plan: * Noted bleeding Likely secondary to pneumonia aggravated by being on Eliquis * Eliquis has been stopped * Chest x-ray shows left basilar airspace opacity * Chest CT shows patchy airspace opacities a lower lobes * Sputum culture ordered but pending collection * IV antibiotics with doxycycline and Primaxin * Pulmonary consult for recommendations * no further hemoptysis and hence Eliquis has now been restarted * Pneumonia suspicious for possible aspiration MBS does show aspiration to thin liquids. * He is getting bolus feeding frequently during the daytime with issues with residual which can potentially lead to aspiration * Dietitian consultation for readjustment of his feeding time/amount (2) Pneumonia: Code(s): J18.9 - Pneumonia, unspecified organism Status: Acute Assessment and Plan: * Pneumonia seen with chest x-ray and the CT * Pulmonary consult * IV antibiotics. Antibiotic doses and duration I will leave up to the fruit coordinator * Trend labs * See above (3) Sepsis: Qualifiers: Sepsis acute organ dysfunction status: unspecified Sepsis type: sepsis due to unspecified organism Qualified Code(s): A41.9 - Sepsis, unspecified organism Code(s): A41.9 - Sepsis, unspecified organism Status: Acute Assessment and Plan: * Sepsis criteria met by tachycardia, leukocytosis, lactic acidosis, tachypnea, source of infection * Q sofa score is a 2 with mild confusion and respiratory rate greater than 22 * Lactic acid upon arrival was 4.5 repeat was 2.8 * Source of infection looks to be pneumonia as indicated on the chest x-ray with left-sided basilar airspace opacities * IV fluids given in the ED and continues IV fluids at 100 mL an hour * Blood cultures no growth to date * Urine culture E coli which is pansensitive * IV antibiotics started however change due to urine culture recently obtained * White blood cell count elevated at 31.5 upon arrival and is currently 24.5 which has now normalized (4) Atrial fibrillation: Code(s): I48.91 - Unspecified atrial fibrillation Status: Acute Assessment and Plan: * Strong history of AFib * Was started on Eliquis however is on hold due to bleedingNo restarted * EKG shows AFib RVR * Tele monitor * Cardiology consult * Cardizem for rate control * also on metoprolol titrated per Cardiology * Adjust therapy as indicated (5) Abnormal finding on urinalysis: Code(s): R82.90 - Unspecified abnormal findings in urine Status: Acute Assessment and Plan: * UA shows clear yellow urine with 2+ blood, positive nitrates, 2+ leukocyte esterase, greater than 75 white blood cells * Cultures pending * Urine culture from 11/15/2021 showed Pseudomonas aeruginosa * Change antibiotics to Primaxin and doxycycline * Tailor antibiotics to culture results * Urinary catheter has been changed (6) 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
--- NOTE | 2021-12-26 10:16 | PM.IMPN ---
Progress Note: A&P Assessment and Plan (1) Hemoptysis: Code(s): R04.2 - Hemoptysis Status: Acute Assessment and Plan: Noted bleeding Likely secondary to pneumonia aggravated by being on Eliquis Eliquis has been stopped Chest x-ray shows left basilar airspace opacity Chest CT shows patchy airspace opacities a lower lobes Sputum culture ordered but pending collection IV antibiotics with doxycycline and Primaxin Pulmonary consult for recommendations no further hemoptysis and hence Eliquis has now been restarted Pneumonia suspicious for possible aspiration MBS does show aspiration to thin liquids. He is getting bolus feeding frequently during the daytime with issues with residual which can potentially lead to aspiration Dietitian consultation for readjustment of his feeding time/amount (2) Pneumonia: Code(s): J18.9 - Pneumonia, unspecified organism Status: Acute Assessment and Plan: Pneumonia seen with chest x-ray and the CT Pulmonary consult IV antibiotics. Antibiotic doses and duration I will leave up to the stave block roller Trend labs See above (3) Sepsis: Qualifiers: Sepsis acute organ dysfunction status: unspecified Sepsis type: sepsis due to unspecified organism Qualified Code(s): A41.9 - Sepsis, unspecified organism Code(s): A41.9 - Sepsis, unspecified organism Status: Acute Assessment and Plan: Sepsis criteria met by tachycardia, leukocytosis, lactic acidosis, tachypnea, source of infection Q sofa score is a 2 with mild confusion and respiratory rate greater than 22 Lactic acid upon arrival was 4.5 repeat was 2.8 Source of infection looks to be pneumonia as indicated on the chest x-ray with left-sided basilar airspace opacities IV fluids given in the ED and continues IV fluids at 100 mL an hour Blood cultures no growth to date Urine culture E coli which is pansensitive IV antibiotics started however change due to urine culture recently obtained White blood cell count elevated at 31.5 upon arrival and is currently 24.5 which has now normalized (4) Atrial fibrillation: Code(s): I48.91 - Unspecified atrial fibrillation Status: Acute Assessment and Plan: Strong history of AFib Was started on Eliquis however is on hold due to bleedingNo restarted EKG shows AFib RVR Tele monitor Cardiology consult Cardizem for rate control also on metoprolol titrated per Cardiology Adjust therapy as indicated (5) Abnormal finding on urinalysis: Code(s): R82.90 - Unspecified abnormal findings in urine Status: Acute Assessment and Plan: UA shows clear yellow urine with 2+ blood, positive nitrates, 2+ leukocyte esterase, greater than 75 white blood cells Cultures pending Urine culture from 11/15/2021 showed Pseudomonas aeruginosa Change antibiotics to Primaxin and doxycycline Tailor antibiotics to culture results Urinary catheter has been changed (6) 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 - Pressure ulcer of sacral region, unspecified stage Status: Acute Assessment and Plan: Chronic Consult wounds (7) Leukocytosis: Code(s): D72.829 - Elevated white blood cell count, unspecified Status: Acute Assessment and Plan: Wbc's elevated upon arrival at 35 and is currently 24.5 Blood cultures pending Antibiotics changed from cefepime to imipenem Could be secondary to urinary tract infection Trend labs Adjust therapy as indicated (8) BPH (benign prostatic hyperplasia): Code(s): N40.0 - Benign prostatic hyperplasia without lower urinary tract symptoms Status: Acute Assessment and Plan: Continue finasteride 5 mg Trend urine output Outpatient follow-up with Urology (9) Anemia: Code(s): D64.9 - Anemia, unspecified Status: Acute Assessment and Plan: Pro
--- NOTE | 2021-12-26 10:46 | PM.PNCARD ---
Progress Note: A&P Assessment and Plan (1) CHF (congestive heart failure): Qualifiers: Heart failure type: diastolic Heart failure chronicity: acute Qualified Code(s): I50.31 - Acute diastolic (congestive) heart failure Code(s): I50.9 - Heart failure, unspecified Status: Acute Assessment and Plan: Motor exam is significantly improved. Continue IV diuresis monitor renal function electrolytes closely. Replete potassium as warranted. Adjustment in free water being contemplated as clinically appropriate with Nutrition Services. Continue IV Lasix 40 mg b.i.d.. -2D echocardiogram personally reviewed and discussed EF 65-70% no LVH mild left atrial enlargement with severe right atrial enlargement RVSP 27 mm Hg mild MR. Compared to prior echo July 2020 no significant change although left atrial size has improved and pulmonary pressures are now in the normal range. (2) Atrial fibrillation with rapid ventricular response: Code(s): I48.91 - Unspecified atrial fibrillation Status: Acute Assessment and Plan: Patient's atrial fibrillation with rapid ventricular response exacerbated by underlying infection due to UTI and pneumonia. - Continue [id number] mg per tube b.i.d.. Heart rate reasonably controlled. Will monitor for now. -Eliquis resumed. Monitor for bleeding. (3) Pneumonia: Code(s): J18.9 - Pneumonia, unspecified organism Status: Acute Assessment and Plan: Per primary service and pulmonology. IV antibiotics. Repeat chest x-ray. (4) UTI (urinary tract infection): Code(s): N39.0 - Urinary tract infection, site not specified Status: Acute Assessment and Plan: Continue treatment. Per primary service. (5) Hemoptysis: Code(s): R04.2 - Hemoptysis Status: Acute Assessment and Plan: No reported recurrence after resuming Eliquis. (6) Cervical spine fracture: Code(s): S12.9XXA - Fracture of neck, unspecified, initial encounter Status: Acute Assessment and Plan: Paralysis below neck. Per primary service. Subjective Date/time seen: Date of service: 12/26/21 10:46 Interval history: 86-year-old seen in follow-up for AFib, UTI, C4 fracture, and pneumonia And more recent volume overload Date of service 12/19/2021: Heart rate is much better controlled on oral metoprolol and with treatment of his infections. Breathing okay Date of service 12/20/2021: Heart rate is fluctuating. Elevated now but has not received his medications yet. No chest pain or shortness of breath Date of service 12/21/2021: Feels better overall. No chest pain or shortness of breath date of service 12/22/2021: Patient states he feels okay. Coughing up sputum denies red blood or dark sputum. Denies shortness of breath or chest pain. Feels okay. No new issues overnight. Remains tachycardic in atrial fibrillation heart rate 110's to 130s. Date of service 12/23/2021: Patient feels fine. Occasional coughing no bleeding. Denies shortness of breath, chest pain or palpitations. Heart rate much better controlled today on telemetry heart rate in the 90s but more rapid this morning 110s to 130s prior to medications. Date of service 12/24/2021: Heart rate better controlled on telemetry generally in the 90s. Patient appears more short of breath this morning although he denies this. Denies change in cough, no hemoptysis. Remains on room air. date of service 12/25/2021: Patient states he feels much better less short of breath. More comfortable in general. Still feels soreness and his right arm. Edema persists. Responded fairly well with diuresis overnight heart rate a little more elevated today 90s -130s. Date of service 12/26/2021: Patient a bit more fatigued appearing this morning. Denies shortness of breath. Edema slightly improved. Urine output fair. Heart rate better controlled generally in the 90s in A
[2021-12-26] MEDS: DOXYCYCLINE 100 MG/NS 100 ML 100 MG/100 ML BAG IVPB ×2 (11:43→22:15)
[2021-12-26] MEDS: traMADol HCL (*CRX) 50 MG TABLET PO (12:50)
--- NOTE | 2021-12-26 13:45 | PCNFU ---
Nutrition Follow-Up Complete: Increased nutrient needs related to altered skin integrity as evidenced by stage III ulcer to sacral area Goal: Meet nutritional needs Patient is progressing towards goal. We will continue current goal. Pt current nutrition is Jevity 1.5 237 ml bolus feedings 5 x daily, Abdelrahman BID, Banatrol Plus q 6 hours, Prostat BID. Last recorded weight is 59.9 kg, No new weight to report. Bowel Motility:+BM reported 12/26 Labs Reviewed:Glu 121, Na 125, Hct 29.1,Hgb 9.0 Meds Noted:Eliquis, Colace, Ferrous Sulfate, Lopressor, Melatonin,Cymbalta,Lasix, Proscar Skin: stage III PU-medical saccum. Additional Notes: Nutrition follow up. Spoke with patient and daughter today regarding tube feeding alternatives. Patient daughter did state that a feeding pump would not be covered insurance. They are interested in having feeding amounts reduced. Nutrition recommendations of Jevity 1.5 -356 ml or 1.5 cans at 8am,noon and 5pm. 237 ml or 1 can at 9pm. Recommend 356 ml feedings with 75 ml water flush before and after feedings and 60 ml flush before and after 237 ml feedings. MD called for orders. Current tube feedings will provide patient with 1958 kcals/83 gms protein/990 ml water. Agree with diet orders. Patient has tried the banatrol plus at home for diarrhea. Protein modular of Abdelrahman also at home. Recommend to continue Abdelrahman at least once per day providing an additional 90 kcals and 2.5 gms protein. Monitor TF orders, tolerance, wts, labs, skin. Follow up Wednesday/Fridays
--- NOTE | 2021-12-26 20:49 | PM.PNPUL ---
Progress Note: A&P Assessment and Plan (1) Pneumonia: Code(s): J18.9 - Pneumonia, unspecified organism Status: Acute Assessment and Plan: He has community acquired pneumonia with a chest CT showing scattered infiltrates in the bases, slightly worse CXR December 22. Today 12/26, he has improved breath sounds in the left base compared to December 24, he is less edematous. He is not having hemoptysis, has normal sat on room air. He may have aspiration contributing to his pneumonia this admission. He has an abnormal Speech Evaluation during his study yesterday, however his ST today appears improved. He will need to continue Speech Therapy at home, and can work with his incentive spirometer. (2) Hemoptysis: Code(s): R04.2 - Hemoptysis Status: Acute Assessment and Plan: He had hemoptysis prior to admission, none since he arrived 12/18, no recurrence. Will continue to watch closely. His hemoptysis was likely due to pneumonia and is self limited. Eliquis was restarted December 22. Subjective Date/time seen: 12/26/21 20:49 Dr Paniagua is an 86 year old man seen in follow up for hemoptysis prior to admission and pneumonia with a left basilar infiltrate. He is smiling, feels better, always says he is feeling well. He does look better. No hemoptysis since admission. Apixaban restarted December 22. His room air saturation today is 96-98%. On imipenem and doxycycline since December 19. He has had abdominal distention, had dilated loops of bowel, and radiologist recommended either bowel series of abdominal CT. Dr Macias is managing his rapid atrial fibrillation and volume overload. He continues to get diuresis. C4 spinal cord injury, functional quadriplegic, bedbound. 12/26- has crackles in left base, no swelling in his ankles, better. Remains on room air. 12/25- less edema, echo showed EF 65-70%, enlarged RA, improvement in his pulmonary hypertension. 12/24 - Decreased breath sounds Left base. Swollen ankles. Repeat CXR. More diuresis, echo obtained, increased pulm toilet. 12/23 - He had increased heart rate today, and cardiology is increasing some medications. He remains on room air. He is able to use his Incentive Spirometer slightly over 1 L. This is a good start. He was not quite upright in bed, higher that 45 degrees. 12/22 - He does not need IV antibiotics. He can restart Eliquis as he has not had hemoptysis since admission. His atrial fib is faster today. He had additional speech therapy today. His exercises are outline in the ST summary; laryngeal adduction and elevation. He is having challenges with hard effortful swallows. This looked adequate during the ST therapy although his esterday showed that he is not closing his larynx. He is going to aspirate if he eats now. He has an incentive spirometer at [facility] beside, however he is too tired to use it now. We will try again tomorrow. 12/21 - no hemoptysis today. He completed his swallow study, and he aspirates thin liquids.HIs swallow study showed abnormal oral stage with reduced lingual control, coordination, elevation and shaping, reduced tongue movement and shaping, and pharyngeal stage problems with poor lingual control, poor tongue base retraction, reduced lingual closures, elevation and squeeze. Review of Systems Review of Systems: All systems reviewed & are unremarkable except as noted in HPI and below Exam Narrative: In room 340 GEN: Not in distress. Alert, head of bed is elevated. He speaks softly. Alert and oriented. CHEST: Few crackles left base, otherwise adequate aeration and breath sounds in other parts of his chest. CV: Irregular S1S2 no m/g/r; heart rate is now in the 90s. His HR has been up in the low 100 range, overall more controlled. ABD : Mild distention. Extremities : no clubbing, cyanosis, today with no ankle edema. He does not
[2021-12-26] MEDS: DORNASE ALFA INH SOLN 1 MG/ML 2.5 ML AMP 2.5 MG INHALATION (21:00)
[2021-12-26] MEDS: LATANOPROST 0.005% OP SOLN 2.5 ML BTL 1 DROP EACH EYE (22:14)
[2021-12-26] MEDS: traZODone HCL 50 MG TABLET FEED TUBE (22:15)
[2021-12-26] MEDS: MELATONIN 5 MG TABLET FEED TUBE (22:15)
[2021-12-26] MEDS: LORATADINE 10 MG TABLET FEED TUBE (22:15)
[2021-12-27] VITALS (15 sets, daily range): BP systolic 104–115; BP diastolic 53–73; PULSE 78–102; RESP 16–18; TEMP 36.6–36.7; O2SAT 93–98
[2021-12-27] MEDS: DORNASE ALFA INH SOLN 1 MG/ML 2.5 ML AMP 2.5 MG INHALATION ×2 (07:33→19:54)
[2021-12-27] MEDS: APIXABAN 2.5 MG TABLET PO ×2 (08:56→21:57)
[2021-12-27] MEDS: METOPROLOL TARTRATE 50 MG TAB 100 MG FEED TUBE ×2 (08:56→18:11)
[2021-12-27] MEDS: FUROSEMIDE INJ 40 MG/4 ML VIAL IV PUSH (08:56)
[2021-12-27] MEDS: DULoxetine HCL 20 MG CAPSULE.DR PO (08:56)
[2021-12-27] MEDS: FINASTERIDE 5 MG TABLET FEED TUBE (08:56)
[2021-12-27] MEDS: FERROUS SULFATE LIQUID 325 MG/7.4 ML ELIXIR FEED TUBE ×2 (08:56→18:12)
[2021-12-27] MEDS: TIMOLOL MALEATE 0.25% OP SOLN 5 ML BOTTLE 1 DROP EACH EYE ×2 (08:57→21:58)
--- NOTE | 2021-12-27 09:21 | PM.PNCARD ---
Progress Note: A&P Additional Plan 86-year-old man with: Chronic atrial fibrillation receiving rate control with metoprolol which is reasonable. 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 Patient's hospital evaluation has included an echocardiogram which demonstrates normal LV systolic function and no significant valvular disease. Noticed that the patient was not on furosemide upon admission and has normal renal function from what I can see. I am going to stop the IV furosemide at this time since over-diuresis is a concern. His heart rate is adequately controlled with metoprolol per his G-tube. No adjustments in his medications Are needed at this time. Will continue to follow while he is in the hospital his atrial fibrillation once again appears to be a chronic issue and does not require ongoing hospitalization Faisal Sotelo MD [facility] Subjective Date/time seen: Date of service:12/27/21 09:21 Interval history: 86-year-old seen in follow-up for AFib, UTI, C4 fracture, and pneumonia And more recent volume overload Date of service 12/19/2021: Heart rate is much better controlled on oral metoprolol and with treatment of his infections. Breathing okay Date of service 12/20/2021: Heart rate is fluctuating. Elevated now but has not received his medications yet. No chest pain or shortness of breath Date of service 12/21/2021: Feels better overall. No chest pain or shortness of breath date of service 12/22/2021: Patient states he feels okay. Coughing up sputum denies red blood or dark sputum. Denies shortness of breath or chest pain. Feels okay. No new issues overnight. Remains tachycardic in atrial fibrillation heart rate 110's to 130s. Date of service 12/23/2021: Patient feels fine. Occasional coughing no bleeding. Denies shortness of breath, chest pain or palpitations. Heart rate much better controlled today on telemetry heart rate in the 90s but more rapid this morning 110s to 130s prior to medications. Date of service 12/24/2021: Heart rate better controlled on telemetry generally in the 90s. Patient appears more short of breath this morning although he denies this. Denies change in cough, no hemoptysis. Remains on room air. date of service 12/25/2021: Patient states he feels much better less short of breath. More comfortable in general. Still feels soreness and his right arm. Edema persists. Responded fairly well with diuresis overnight heart rate a little more elevated today 90s -130s. Date of service 12/26/2021: Patient a bit more fatigued appearing this morning. Denies shortness of breath. Edema slightly improved. Urine output fair. Heart rate better controlled generally in the 90s in AFib on telemetry. BP fairly stable. His oxygen saturations are stable on room air. Date of service 12/27/2021: Patient is comfortable offers no cardiovascular complaints. Atrial fibrillation with reasonable control on telemetry. Currently receiving metoprolol 100 mg q.12 hours per his G-tube Exam Const: General: comfortable and no acute distress Eyes: Sclera: sclerae normal Neck: Neck: supple and no JVD Resp: Effort & Inspection: normal respiratory effort Auscultation: clear to auscultation bilaterally Cardio: Rhythm: abnormal rhythm irregularly irregular GI: GI Palp: Yes Soft to palpation Auscultation: normal bowel sounds Neuro: Cognition (Neuro): normal cognition Objective Data Vital Signs Vital Signs: Vital Signs - 24 hr 12/26/21 12:00 12/26/21 14:00 12/26/21 16:00 Temperature 36.6 C Pulse Rate 92 88 86 Respiratory Rate 14 Blood Pressure 106/65 Pulse Oximetry 96 12/26/21 20:50 12/26/21 21:02 12/26/21 21:03 Temperature 36.9 C Pulse Rate 81 81 Respiratory Rate 16 16 Blood Pressure 112/60 Pulse Oximetry 95 95 12/26/21 21:08
[2021-12-27 10:29] LABS: Hematocrit 33.7 % (42.0-52.0); Hemoglobin 9.7 g/dL (14.0-18.0); Mean Corpuscular HGB Conc 28.8 g/dl (32-36); Mean Corpuscular Hemoglobin 26.8 pg (26-34); Mean Corpuscular Volume 93.1 fl (80-100); Mean Platelet Volume 9.5 fl (7.4-10.4); Platelet Count Result 333 k/mm3 (150-375); Red Blood Count 3.62 M/mm3 (4.6-6.20); Red Cell Distribution Width 19.5 % (11.5-14.5); White Blood Count 9.9 K/mm3 (4.5-10.0)
[2021-12-27 10:39] LABS: Alanine Aminotransferase 14 U/L (4-50); Albumin Level 3.9 g/dL (3.5-5.1); Alkaline Phosphatase 109 U/L (38-126); Anion Gap 8 mmol/L (8-16); Aspartate Amino Transferase 28 U/L (17-59); Bilirubin,Total 0.4 mg/dL (0.2-1.3); Blood Urea Nitrogen 40 mg/dL (9-20); Calcium 8.9 mg/dL (8.4-10.2); Carbon Dioxide 31 mmol/L (22-30); Chloride 96 mmol/L (98-107); Estimated CRCL calculation 50 ml/min; Estimated Glomerular Filt Rate > 60; Glucose 158 mg/dL (65-110); Potassium 3.8 mmol/L (3.4-5.0); Sodium 135 mmol/L (137-145)
[2021-12-27] MEDS: DOXYCYCLINE 100 MG/NS 100 ML 100 MG/100 ML BAG IVPB (11:48)
[2021-12-27] MEDS: TOLNAFTATE 1% POWDER 45 GM BTL 1 APPLIC TOPICAL ×2 (11:52→21:58)
[2021-12-27] MEDS: SILVERGEL (ELTA) 45 ML 1 APPLIC TOPICAL (11:53)
--- NOTE | 2021-12-27 13:37 | P.PNIM_ITS ---
Progress Note: A&P Assessment and Plan (1) Hemoptysis: Code(s): R04.2 - Hemoptysis Status: Acute Assessment and Plan: * Noted bleeding Likely secondary to pneumonia aggravated by being on Eliquis * Eliquis has been stopped * Chest x-ray shows left basilar airspace opacity * Chest CT shows patchy airspace opacities a lower lobes * Sputum culture ordered but pending collection * IV antibiotics with doxycycline and Primaxin. Day 8 of IV antibiotics. Will check procalcitonin number will plan to taper off antibiotics * Pulmonary consult for recommendations * no further hemoptysis and hence Eliquis has now been restarted * Pneumonia suspicious for possible aspiration MBS does show aspiration to thin liquids. * He is getting bolus feeding frequently during the daytime with issues with residual which can potentially lead to aspiration * Dietitian consultation for readjustment of his feeding time/amount (2) Pneumonia: Code(s): J18.9 - Pneumonia, unspecified organism Status: Acute Assessment and Plan: * Pneumonia seen with chest x-ray and the CT * Pulmonary consult * IV antibiotics. Antibiotics finished seven complete course of IV antibiotics will switch to oral Augmentin. Procalcitonin to guide antibiotic therapy is ordered * Trend labs * See above (3) Sepsis: Qualifiers: Sepsis acute organ dysfunction status: unspecified Sepsis type: sepsis due to unspecified organism Qualified Code(s): A41.9 - Sepsis, unspecified organism Code(s): A41.9 - Sepsis, unspecified organism Status: Acute Assessment and Plan: * Sepsis criteria met by tachycardia, leukocytosis, lactic acidosis, tachypnea, source of infection * Q sofa score is a 2 with mild confusion and respiratory rate greater than 22 * Lactic acid upon arrival was 4.5 repeat was 2.8 * Source of infection looks to be pneumonia as indicated on the chest x-ray with left-sided basilar airspace opacities * IV fluids given in the ED and continues IV fluids at 100 mL an hour * Blood cultures no growth to date * Urine culture E coli which is pansensitive * IV antibiotics started however change due to urine culture recently obtained * White blood cell count elevated at 31.5 upon arrival and is currently 24.5 whi ch has now normalized (4) Atrial fibrillation: Code(s): I48.91 - Unspecified atrial fibrillation Status: Acute Assessment and Plan: * Strong history of AFib * Was started on Eliquis however is on hold due to bleedingNo restarted * EKG shows AFib RVR * Tele monitor * Cardiology consult * Cardizem for rate control * also on metoprolol titrated per Cardiology * Adjust therapy as indicated (5) Abnormal finding on urinalysis: Code(s): R82.90 - Unspecified abnormal findings in urine Status: Acute Assessment and Plan: * UA shows clear yellow urine with 2+ blood, positive nitrates, 2+ leukocyte esterase, greater than 75 white blood cells * Cultures pending * Urine culture from 11/15/2021 showed Pseudomonas aeruginosa * Change antibiotics to Primaxin and doxycycline * Tailor antibiotics to culture results * Urinary catheter has been changed (6) 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
--- NOTE | 2021-12-27 13:37 | PM.IMPN ---
Progress Note: A&P Assessment and Plan (1) Hemoptysis: Code(s): R04.2 - Hemoptysis Status: Acute Assessment and Plan: Noted bleeding Likely secondary to pneumonia aggravated by being on Eliquis Eliquis has been stopped Chest x-ray shows left basilar airspace opacity Chest CT shows patchy airspace opacities a lower lobes Sputum culture ordered but pending collection IV antibiotics with doxycycline and Primaxin. Day 8 of IV antibiotics. Will check procalcitonin number will plan to taper off antibiotics Pulmonary consult for recommendations no further hemoptysis and hence Eliquis has now been restarted Pneumonia suspicious for possible aspiration MBS does show aspiration to thin liquids. He is getting bolus feeding frequently during the daytime with issues with residual which can potentially lead to aspiration Dietitian consultation for readjustment of his feeding time/amount (2) Pneumonia: Code(s): J18.9 - Pneumonia, unspecified organism Status: Acute Assessment and Plan: Pneumonia seen with chest x-ray and the CT Pulmonary consult IV antibiotics. Antibiotics finished seven complete course of IV antibiotics will switch to oral Augmentin. Procalcitonin to guide antibiotic therapy is ordered Trend labs See above (3) Sepsis: Qualifiers: Sepsis acute organ dysfunction status: unspecified Sepsis type: sepsis due to unspecified organism Qualified Code(s): A41.9 - Sepsis, unspecified organism Code(s): A41.9 - Sepsis, unspecified organism Status: Acute Assessment and Plan: Sepsis criteria met by tachycardia, leukocytosis, lactic acidosis, tachypnea, source of infection Q sofa score is a 2 with mild confusion and respiratory rate greater than 22 Lactic acid upon arrival was 4.5 repeat was 2.8 Source of infection looks to be pneumonia as indicated on the chest x-ray with left-sided basilar airspace opacities IV fluids given in the ED and continues IV fluids at 100 mL an hour Blood cultures no growth to date Urine culture E coli which is pansensitive IV antibiotics started however change due to urine culture recently obtained White blood cell count elevated at 31.5 upon arrival and is currently 24.5 which has now normalized (4) Atrial fibrillation: Code(s): I48.91 - Unspecified atrial fibrillation Status: Acute Assessment and Plan: Strong history of AFib Was started on Eliquis however is on hold due to bleedingNo restarted EKG shows AFib RVR Tele monitor Cardiology consult Cardizem for rate control also on metoprolol titrated per Cardiology Adjust therapy as indicated (5) Abnormal finding on urinalysis: Code(s): R82.90 - Unspecified abnormal findings in urine Status: Acute Assessment and Plan: UA shows clear yellow urine with 2+ blood, positive nitrates, 2+ leukocyte esterase, greater than 75 white blood cells Cultures pending Urine culture from 11/15/2021 showed Pseudomonas aeruginosa Change antibiotics to Primaxin and doxycycline Tailor antibiotics to culture results Urinary catheter has been changed (6) 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 - Pressure ulcer of sacral region, unspecified stage Status: Acute Assessment and Plan: Chronic Consult wounds (7) Leukocytosis: Code(s): D72.829 - Elevated white blood cell count, unspecified Status: Acute Assessment and Plan: Wbc's elevated upon arrival at 35 and is currently 24.5 Blood cultures pending Antibiotics changed from cefepime to imipenem Could be secondary to urinary tract infection Trend labs Adjust therapy as indicated (8) BPH (benign prostatic hyperplasia): Code(s): N40.0 - Benign prostatic hyperplasia without lower urinary tract symptoms Status: Acute Assessment and Plan: Continue finasteride 5 mg T
[2021-12-27 16:57] LABS: Procalcitonin 0.1 ng/mL
[2021-12-27] MEDS: MELATONIN 5 MG TABLET FEED TUBE (21:57)
[2021-12-27] MEDS: traZODone HCL 50 MG TABLET FEED TUBE (21:57)
[2021-12-27] MEDS: AMOXICILLIN/CLAVULANATE K 875-125 MG TAB 1 TABLET FEED TUBE (21:57)
[2021-12-27] MEDS: LATANOPROST 0.005% OP SOLN 2.5 ML BTL 1 DROP EACH EYE (21:58)
[2021-12-27] MEDS: LORATADINE 10 MG TABLET FEED TUBE (21:58)
[2021-12-28] VITALS (7 sets, daily range): BP systolic 109; BP diastolic 55; PULSE 61–100; RESP 16–18; TEMP 36.2; O2SAT 95–100
[2021-12-28 05:48] LABS: Hematocrit 34.2 % (42.0-52.0); Hemoglobin 10.2 g/dL (14.0-18.0); Mean Corpuscular HGB Conc 29.8 g/dl (32-36); Mean Corpuscular Hemoglobin 26.7 pg (26-34); Mean Corpuscular Volume 89.5 fl (80-100); Mean Platelet Volume 9.9 fl (7.4-10.4); Platelet Count Result 237 k/mm3 (150-375); Red Blood Count 3.82 M/mm3 (4.6-6.20); Red Cell Distribution Width 19.4 % (11.5-14.5); White Blood Count 8.1 K/mm3 (4.5-10.0)
[2021-12-28 06:39] LABS: Alanine Aminotransferase 15 U/L (4-50); Albumin Level 3.5 g/dL (3.5-5.1); Alkaline Phosphatase 103 U/L (38-126); Anion Gap 8 mmol/L (8-16); Aspartate Amino Transferase 29 U/L (17-59); Bilirubin,Total 0.3 mg/dL (0.2-1.3); Blood Urea Nitrogen 51 mg/dL (9-20); Calcium 8.8 mg/dL (8.4-10.2); Carbon Dioxide 33 mmol/L (22-30); Chloride 94 mmol/L (98-107); Estimated CRCL calculation 49 ml/min; Estimated Glomerular Filt Rate > 60; Glucose 163 mg/dL (65-110); Magnesium 2.1 mg/dL (1.6-2.3); Potassium 3.8 mmol/L (3.4-5.0); Sodium 135 mmol/L (137-145)
[2021-12-28] MEDS: DORNASE ALFA INH SOLN 1 MG/ML 2.5 ML AMP 2.5 MG INHALATION (07:29)
[2021-12-28] MEDS: AMOXICILLIN/CLAVULANATE K 875-125 MG TAB 1 TABLET FEED TUBE (08:50)
[2021-12-28] MEDS: METOPROLOL TARTRATE 50 MG TAB 100 MG FEED TUBE (08:50)
[2021-12-28] MEDS: FERROUS SULFATE LIQUID 325 MG/7.4 ML ELIXIR FEED TUBE (08:51)
[2021-12-28] MEDS: DULoxetine HCL 20 MG CAPSULE.DR PO (08:51)
[2021-12-28] MEDS: SILVERGEL (ELTA) 45 ML 1 APPLIC TOPICAL (08:52)
[2021-12-28] MEDS: APIXABAN 2.5 MG TABLET PO (08:52)
[2021-12-28] MEDS: TIMOLOL MALEATE 0.25% OP SOLN 5 ML BOTTLE 1 DROP EACH EYE (08:53)
[2021-12-28] MEDS: TOLNAFTATE 1% POWDER 45 GM BTL 1 APPLIC TOPICAL (09:07)
[2021-12-28] MEDS: FINASTERIDE 5 MG TABLET FEED TUBE (09:44)
--- NOTE | 2021-12-28 12:01 | P.DS_ITS ---
DS: Admitting Diagnosis Discharge Date 12/28/2021 Admitting Diagnosis Pneumonia DS: Discharge Diagnosis Discharge Diagnosis (1) Hemoptysis: Code(s): R04.2 - Hemoptysis Status: Acute Assessment and Plan: * Presenting complaint. * Noted bleeding Likely secondary to pneumonia aggravated by being on Eliquis * Eliquis was stopped initially on admission * Chest x-ray shows left basilar airspace opacity * Chest CT shows patchy airspace opacities a lower lobes * Sputum culture ordered but pending collection * IV antibiotics with doxycycline and Primaxin. Finished IV antibiotics 7 days course. Check procalcitonin which was normal. Switch antibiotic to Augmentin will continue for 5 more days at discharge. * Pulmonary consult for recommendations * no further hemoptysis and hence Eliquis has now been restarted * Pneumonia suspicious for possible aspiration MBS does show aspiration to thin liquids. * He is getting bolus feeding frequently during the daytime with issues with residual which can potentially lead to aspiration * Dietitian consultation for readjustment of his feeding time/amount and has lower down the amount and frequency (2) Pneumonia: Code(s): J18.9 - Pneumonia, unspecified organism Status: Acute Assessment and Plan: * Pneumonia seen with chest x-ray and the CT * Pulmonary consult * IV antibiotics. Antibiotics finished seven complete course of IV antibiotics will switch to oral Augmentin. Procalcitonin was normal * WBC count has normalized. (3) Sepsis: Qualifiers: Sepsis acute organ dysfunction status: unspecified Sepsis type: sepsis due to unspecified organism Qualified Code(s): A41.9 - Sepsis, unspecified organism Code(s): A41.9 - Sepsis, unspecified organism Status: Acute Assessment and Plan: * Sepsis criteria met by tachycardia, leukocytosis, lactic acidosis, tachypnea, source of infection * Q sofa score is a 2 with mild confusion and respiratory rate greater than 22 * Lactic acid upon arrival was 4.5 repeat was 2.8 * Source of infection looks to be pneumonia as indicated on the chest x-ray with left-sided basilar airspace opacities * IV fluids given in the ED and continues IV fluids at 100 mL an hour * Blood cultures no growth to date * Urine culture E coli which is pansensitive * IV antibiotics started however change due to urine culture recently obtained * White blood cell count elevated at 31.5 upon arrival and is currently 24.5 which has now normalized (4) Atrial fibrillation: Code(s): I48.91 - Unspecified atrial fibrillation Status: Acute Assessment and Plan: * Strong history of AFib * Was started on Eliquis however is on hold due to bleedingNo restarted * EKG shows AFib RVR * Tele monitor * Cardiology consult * Cardizem for rate control * also on metoprolol titrated per Cardiology * Adjust therapy as indicated (5) Abnormal finding on urinalysis: Code(s): R82.90 - Unspecified abnormal findings in urine Status: Acute Assessment and Plan: * UA shows clear yellow urine with 2+ blood, positive nitrates, 2+ leukocyte esterase, greater than 75 white blood cells * Cultures pending * Urine culture from 11/15/2021 showed Pseudomonas aeruginosa * Change antibiotics to Primaxin and doxycycline * Tailor antibiotics to culture results * Urinary catheter has been changed (6) 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 - Wei
--- NOTE | 2021-12-28 12:01 | PM.DS ---
DS: Admitting Diagnosis Discharge Date 12/28/2021 Admitting Diagnosis Pneumonia DS: Discharge Diagnosis Discharge Diagnosis (1) Hemoptysis: Code(s): R04.2 - Hemoptysis Status: Acute Assessment and Plan: Presenting complaint. Noted bleeding Likely secondary to pneumonia aggravated by being on Eliquis Eliquis was stopped initially on admission Chest x-ray shows left basilar airspace opacity Chest CT shows patchy airspace opacities a lower lobes Sputum culture ordered but pending collection IV antibiotics with doxycycline and Primaxin. Finished IV antibiotics 7 days course. Check procalcitonin which was normal. Switch antibiotic to Augmentin will continue for 5 more days at discharge. Pulmonary consult for recommendations no further hemoptysis and hence Eliquis has now been restarted Pneumonia suspicious for possible aspiration MBS does show aspiration to thin liquids. He is getting bolus feeding frequently during the daytime with issues with residual which can potentially lead to aspiration Dietitian consultation for readjustment of his feeding time/amount and has lower down the amount and frequency (2) Pneumonia: Code(s): J18.9 - Pneumonia, unspecified organism Status: Acute Assessment and Plan: Pneumonia seen with chest x-ray and the CT Pulmonary consult IV antibiotics. Antibiotics finished seven complete course of IV antibiotics will switch to oral Augmentin. Procalcitonin was normal WBC count has normalized. (3) Sepsis: Qualifiers: Sepsis acute organ dysfunction status: unspecified Sepsis type: sepsis due to unspecified organism Qualified Code(s): A41.9 - Sepsis, unspecified organism Code(s): A41.9 - Sepsis, unspecified organism Status: Acute Assessment and Plan: Sepsis criteria met by tachycardia, leukocytosis, lactic acidosis, tachypnea, source of infection Q sofa score is a 2 with mild confusion and respiratory rate greater than 22 Lactic acid upon arrival was 4.5 repeat was 2.8 Source of infection looks to be pneumonia as indicated on the chest x-ray with left-sided basilar airspace opacities IV fluids given in the ED and continues IV fluids at 100 mL an hour Blood cultures no growth to date Urine culture E coli which is pansensitive IV antibiotics started however change due to urine culture recently obtained White blood cell count elevated at 31.5 upon arrival and is currently 24.5 which has now normalized (4) Atrial fibrillation: Code(s): I48.91 - Unspecified atrial fibrillation Status: Acute Assessment and Plan: Strong history of AFib Was started on Eliquis however is on hold due to bleedingNo restarted EKG shows AFib RVR Tele monitor Cardiology consult Juan Alberto for rate control also on metoprolol titrated per Cardiology Adjust therapy as indicated (5) Abnormal finding on urinalysis: Code(s): R82.90 - Unspecified abnormal findings in urine Status: Acute Assessment and Plan: UA shows clear yellow urine with 2+ blood, positive nitrates, 2+ leukocyte esterase, greater than 75 white blood cells Cultures pending Urine culture from 11/15/2021 showed Pseudomonas aeruginosa Change antibiotics to Primaxin and doxycycline Tailor antibiotics to culture results Urinary catheter has been changed (6) 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 - Pressure ulcer of sacral region, unspecified stage Status: Acute Assessment and Plan: Chronic Consult wounds continue wound care as recommended (7) Leukocytosis: Code(s): D72.829 - Elevated white blood cell count, unspecified Status: Acute Assessment and Plan: Wbc's elevated upon arrival at 35 and is currently 24.5 Blood cultures pending Antibiotics changed from cefepime to imipenem Could be secondary to urinary tract infection Trend labs
== END 2021-12-28 16:30 | disposition home health service (06) | DRG 871 ==
LOC: ANHED 05:54 → ANHIMU 07:53 → ANH3MED 12-20 18:20
PROVIDERS: Family Medicine; Nurse Practitioner; Admitting Provider Internal Medicine; Emergency Provider Emergency Medicine; PCP Internal Medicine; Visit Provider Internal Medicine
DX: A41.9 Sepsis, unspecified organism (principal); I50.31 Acute diastolic (congestive) heart failure; G82.50 Quadriplegia, unspecified; J69.0 Pneumonitis due to inhalation of food and vomit; T83.518A Infection and inflammatory reaction due to other urinary catheter, initial encounter; R04.2 Hemoptysis; D62 Acute posthemorrhagic anemia; N39.0 Urinary tract infection, site not specified; I48.20 Chronic atrial fibrillation, unspecified; G62.9 Polyneuropathy, unspecified; Z87.891 Personal history of nicotine dependence; Z83.49 Family history of other endocrine, nutritional and metabolic diseases; Z91.81 History of falling; L89.159 Pressure ulcer of sacral region, unspecified stage; B96.5 Pseudomonas (aeruginosa) (mallei) (pseudomallei) as the cause of diseases classified elsewhere; Z79.01 Long term (current) use of anticoagulants; W19.XXXS Unspecified fall, sequela; D50.9 Iron deficiency anemia, unspecified; S12.300S Unspecified displaced fracture of fourth cervical vertebra, sequela; T45.515A Adverse effect of anticoagulants, initial encounter; N40.1 Benign prostatic hyperplasia with lower urinary tract symptoms; R33.9 Retention of urine, unspecified; Z93.1 Gastrostomy status; Z79.899 Other long term (current) drug therapy; Z79.4 Long term (current) use of insulin; Z86.73 Personal history of transient ischemic attack (TIA), and cerebral infarction without residual deficits; Y84.6 Urinary catheterization as the cause of abnormal reaction of the patient, or of later complication, without mention of misadventure at the time of the procedure
CPT/HCPCS: 36415; 71045; 71260; 74018; 80053; 81001; 82607; 82728; 82746; 83540; 83550; 83605; 83735; 83880; 84145; 84466; 85025; 85027; 85046; 85610; 85730; 87040; 87077; 87086; 87088; 87186; 92526; 92611; 93005; 93306; 94640; 99285; A9270; J0692; J0696; J0743; J1756; J1940; J7030; J7040; Q9967

== ENCOUNTER 2022-01-26 17:06 | Inpatient (IN) | payer MEDICARE, SELFPAY ==
[2022-01-26] VITALS (7 sets, daily range): BP systolic 102–122; BP diastolic 52–85; PULSE 115–178; RESP 18; TEMP 37–38.1; O2SAT 93–99; BMI 25.0
--- NOTE | ~2022-01-26 | XR_ITS ---
XR abdomen/kub 1V 01/29/2022 14:26 Indication: Constipation Procedure: KUB Comparison: 12/25/2021 Findings: Bowel gas pattern is nonspecific with moderate gas in the colon. No significant small bowel dilation. There is a gastric tube present. IVC filter is present, superior tip at the L1-2 level. Th ere is a catheter overlying the pelvis. There is advanced multilevel lumbar spondylosis. Kidneys are of scattered by bowel content limits evaluation for renal stones. Impression: 1: Nonspecific bowel gas pattern. No definite obstruction. Reviewed, dictated and finalized at location A. Impression: 1: Nonspecific bowel gas pattern. No definite obstruction.
--- NOTE | ~2022-01-26 | XR_ITS ---
EXAMINATION: XR chest port-a-cath/central DATE: 01/27/2022 10:37 INDICATION: Central line placement. TECHNIQUE: A single frontal view of the chest was obtained. COMPARISON: Chest 2 views 01/26/2022, CT abdomen and pelvis 01/26/2022 FINDINGS: There is mild atelectasis in left lower lung zone. No pleural effusion or pneumothorax. Car diomegaly is noted. A right internal jugular central venous catheter is seen with tip at the superior cavoatrial junction. IMPRESSION: 1. Central line tip at superior cavoatrial junction. 2. Mild atelectasis in left lower lung zone. 3. Cardiomegaly. Reviewed, dictated and finalized at location A.
--- NOTE | ~2022-01-26 | XR_ITS ---
XR chest 1V portable DATE: 02/01/2022 13:23 INDICATION: Tachypnea TECHNIQUE: Portable AP chest on 02/01/2022 at 1317 hours COMPARISON: 01/27/2022 portable AP chest at 1024 hours FINDINGS: Cardiomegaly. Aortic calcification and unfolding. No hilar or mediastinal enlargement is ev ident. Left lower lobe infiltrate or atelectasis is suggested in the left retrocardiac area. The lungs other shen appear clear. Right internal jugular central venous catheter tip overlies the upper aspect of the right atrium. No pneumothorax. No pleural effusion or pulmonary vascular congestion is evident. IMPRESSION: Right internal jugular central venous catheter tip overlies upper right atrium Cardiomegaly, aortic atherosclerosis Left lower lobe infiltrate or atelectasis Reviewed, dictated and finalized at location A. IMPRESSION: Right internal jugular central venous catheter tip overlies upper r ight atrium Cardiomegaly, aortic atherosclerosis Left lower lobe infiltrate or atelectasis
--- NOTE | ~2022-01-26 | CT_ITS ---
EXAMINATION: CT abdomen pelvis wo con DATE: 01/26/2022 19:34 INDICATION: abd pain, fever TECHNIQUE: Computed tomography (CT) of the abdomen and pelvis was performed without intravenous contr ast. Automated exposure control and iterative reconstruction technique were employed. The dose-length product was 664.00 mGy-cm. COMPARISON: None FINDINGS: Lower thorax: Marked respiratory motion. Cardiomegaly, with right atrial enlargement. Liver: Normal. Biliary/Gallbladder: Gallbladder is normal. No bile duct dilation. Pancreas: No mass or duct dilation. Spleen: Normal. Adrenals:No mass. Kidneys: No mass, stone, or hydronephrosis. Bilateral perinephric stranding, slightly greater on the left, and extending down the mildly ectatic left ureter GI tract: Mild wall density wall edema in the sigmoid colon. Normal appendix. Mesentery/Peritoneum: No ascites, mass, or free air. Retroperitoneum: No mass. Atherosclerotic abdominal arterial calcifications. Pelvis: Mild edema/inflammatory change of the urinary bladder wall. There is a catheter in the penile urethra. Soft Tissues: Small fat-containing bilateral inguinal hernias. Bones: No acute osseous finding. IMPRESSION: Findings as can be seen with cystitis and ascending infection in the left collecting system. Penile u rethral catheter, incompletely visualized but not extending to the bladder. Possible colitis, frequen tly infectious, although inflammatory and ischemic etiologies can appear similar. Reviewed, dictated and finalized at location K. IMPRESSION: Findings as can be seen with cystitis and ascending infection in the left colle cting system. Penile urethral catheter, incompletely visualized but not extendi ng to the bladder. Possible colitis, frequently infectious, although inflammato ry and ischemic etiologies can appear similar.
--- NOTE | ~2022-01-26 | XR_ITS ---
EXAMINATION: XR chest 2V Exam Date/Time: 01/26/2022 17:37 CDT HISTORY: fever Comparison: X-ray chest 12/24/2021. CT chest 12/18/2021. RESULT: Lines, tubes, and devices: None. Lungs and pleura: Clear. Cardiomediastinal silhouette: Stable cardiomediastinal silhouette. Other: No acute osseous or upper abdominal finding. IMPRESSION: No acute cardiopulmonary process. Reviewed, dictated and finalized at location K.
--- NOTE | ~2022-01-26 | CT_ITS ---
EXAMINATION: CT chest abdomen pelvis wo con DATE: 02/02/2022 15:04 CDT INDICATION: Decreasing hemoglobin. Patient unresponsive. TECHNIQUE: Computed tomographic study of the chest, abdomen, and pelvis was performed without and wit h 100 mL Omnipaque-350 intravenous contrast. The dose-length product was 649.30 mGy-cm. Maximum inten sity projection 3D-reconstructions of the aorta and other arteries were constructed by the [employer] st on a separate workstation. Automated exposure control and iterative reconstruction technique were employed. COMPARISON: CT dated 01/26/2022 FINDINGS: CHEST CT: There is atherosclerosis of the aorta. Borderline heart size. No significant pleural or pericardial e ffusion. Gallbladder is contracted with high density material dependently, sludge versus stones. No t horacic lymphadenopathy. No endobronchial lesions. There is left lower lobe airspace disease which ma y represent atelectasis or pneumonia. There is right lower lobe atelectasis. ABDOMEN AND PELVIS CT: There is a gastric tube present. There are air-fluid levels throughout the small bowel and colon, mos t likely ileus. There is mild thickening of the distal colon and rectum. Lizama catheter present in th e bladder. There is atherosclerosis of the aorta without aneurysm. There is an IVC filter present. The liver, spleen, pancreas, adrenal glands and kidneys are unremarkable. No hydronephrosis. Bladder wall may be mildly thickened, although this could be due to underdistention. Generalized osteopenia. Moderate osteoarthritis of the hips. There is moderate thoracic and lumbar spondylosis. IMPRESSION: 1. Fluid-filled small bowel and colon with air-fluid levels, most likely adynamic ileus. 2: Mild thickening of the distal colon and rectum which may be due to underdistention, although coli tis cannot be excluded. 3: Focal left lower lobe airspace disease may represent atelectasis or pneumonia. Reviewed, dictated and finalized at location A. IMPRESSION: 1. Fluid-filled small bowel and colon with air-fluid levels, most likely adynam ic ileus. 2: Mild thickening of the distal colon and rectum which may be due to underdis tention, although colitis cannot be excluded. 3: Focal left lower lobe airspace disease may represent atelectasis or pneumon ia.
--- NOTE | ~2022-01-26 | CT_ITS ---
EXAMINATION: CT brain wo con DATE: 02/02/2022 15:29 INDICATION: Altered mental status. Patient unresponsive. TECHNIQUE: Computed tomography (CT) of the head was performed without intravenous contrast. The dose- length product was 605.33 mGy-cm. Automated exposure control and iterative reconstruction technique w ere employed. COMPARISON: CT dated 07/20/2021 FINDINGS: Generalized atrophy. Mild prominence of the ventricles. There are scattered mild periventricular and subcortical white matter changes, most likely related to small vessel ischemic disease (microangiopat hy). No acute intracranial hemorrhage, infarction, mass or mass effect. There is sphenoid sinus disea se. Mastoids are pneumatized. No depressed skull fractures. There is a chronic left occipital lobe in farction. IMPRESSION: 1. No acute intracranial abnormality. 2: Chronic left occipital lobe infarction. 3: Mild ventricular prominence which may be due to central atrophy or normal pressure hydrocephalus. 4: Sphenoid sinusitis. 5: Chronic age-related findings. Reviewed, dictated and finalized at location A. IMPRESSION: 1. No acute intracranial abnormality. 2: Chronic left occipital lobe infarction. 3: Mild ventricular prominence which may be due to central atrophy or normal p ressure hydrocephalus. 4: Sphenoid sinusitis. 5: Chronic age-related findings.
--- NOTE | 2022-01-26 17:18 | ECG_ITS ---
Measurements Intervals [place] Rate: 128 P: TN: 0 QRS: 103 QRSD: 119 T: -30 QT: 305 QTc: 446 Interpretive Statements ATRIAL FIBRILLATION WITH RAPID VENTRICULAR RESPONSE NONSUSTAINED VENTRICULAR TACHYCARDIA AND VENTRICULAR PREMATURE COMPLEXES RIGHT AXIS DEVIATION INCOMPLETE RIGHT BUNDLE BRANCH BLOCK BASELINE ARTIFACT- I, III, AVR, AVL, AVF, V2-V2 ABNORMAL ECG Electronically Signed On 01-26-2022 20:03:19 CDT by Bossman Bhatia D.O.
--- NOTE | 2022-01-26 17:19 | ED.FEVER ---
HPI - Fever General Chief Complaint: Fever Stated Complaint: possible UTI, bedridden pt Time Seen by Provider: 01/26/22 17:13 History of Present Illness HPI Narrative: Patient is an 86-year-old male with a history of atrial fibrillation on Eliquis, CVA, C3-C4 injury/ quadriplegia, aspiration pneumonia with feeding tube, urinary retention w/ chronic daly, here for evaluation of fever. Per patient's family, patient has also been complaining of abdominal pain and cloudy urine noted from his daly. History from patient is limited due to his mental status, although he does nod when asked if he is having abdominal pain. Also has been vomiting green vomit. Denies chest pain, palpitations. Related Data Home Medications Medication Instructions Recorded Confirmed latanoprost 0.005 % eye drops 1 drp EACH EYE HS 07/20/21 01/26/22 loratadine 10 mg tablet (Claritin) 10 mg feeding tube HS 09/23/21 01/26/22 acetaminophen 325 mg tablet 650 mg feeding tube Q6H PRN Pain 12/18/21 01/26/22 melatonin 5 mg tablet 5 mg feeding tube HS 12/18/21 01/26/22 timolol 0.5 % eye drops 1 drp EACH EYE Q12H 01/22/22 01/26/22 Allergies Allergy/AdvReac Type Severity Reaction Status Date / Time simvastatin Allergy Mild Itching Verified 01/01/22 10:57 peanut Allergy Wheezing Verified 01/01/22 10:57 Review of Systems Review of Systems: Gen: Reports fevers. Eyes: Denies eye pain or visual change ENT: Denies congestion Respiratory: Denies shortness of breath or cough CV: Denies chest pain or palpitations GI: Denies abdominal pain nausea, emesis or diarrhea : reports cloudy urine. Denies burning, urgency, frequency or hematuria Musculoskeletal: Denies back pain or muscle pain Neuro: Denies numbness, tingling, weakness or focal weakness Skin: Denies rash Except as documented, all other systems reviewed and negative All systems reviewed & are unremarkable except as noted in HPI and below PMFSH Past Medical History Medical History Aspiration pneumonia Atrial fibrillation Cervical spine fracture CVA (cerebral vascular accident) Neuropathic pain Sacral decubitus ulcer Urinary obstruction Surgical History Surgical History S/P cervical spinal fusion Family History Family History Sibling Patient's brother is in good health Cancer Father Patient's father is Family history of liver disease, Onset Age: 52 Mother Patient's mother is Family history of liver disease, Onset Age: 67 Social History Social History Social History: Patient lives with family and is a paraplegic. Patient is a full code and his surrogate is his and daughter. Smoking status: Former smoker Tobacco type: cigarettes Smoking end date: 09/10/1962 Alcohol intake: never Substance use: never Substance use type: does not use Gender identity (if verbalized by the patient): Male Sexual Orientation (if Verbalized by the Patient): Straight or Heterosexual Spiritual care concerns: No Exam Narrative: APPEARANCE: Chronically ill-appearing. Head: normocephalic and atraumatic. EYES: PERRLA/EOMI, conjunctivae clear NOSE: No nasal drainage EARS: External ear normal in appearance THROAT: Oropharynx is clear. Mucous membranes are moist. NECK: Supple. No adenopathy, no masses. RESPIRATORY: Tachypneic. Breath sounds present throughout CARDIOVASCULAR: Regular rate and rhythm without murmurs, rubs, or gallops. ABDOMINAL: Tender to palpation suprapubic region. Abdomen is firm. Normoactive bowel sounds. No rebound tenderness or guarding. : Cloudy urine noted in Daly catheter bag MUSCULOSKELETAL: Extremities are warm and well-perfused. Moves all extremities well. No edema. NEURO: Normal speech
[2022-01-26 17:38] LABS: Basophils Absolute Auto 0.1 K/mm3 (0.0-0.1); Basophils Percent Auto 0.3 % (0.2-1.2); Eosinophils Absolute Auto 0.1 K/mm3 (0-0.3); Eosinophils Percent Auto 0.4 % (0-4.4); Hematocrit 37.6 % (42.0-52.0); Hemoglobin 11.6 g/dL (14.0-18.0); Immature Granulocyte Absolute 0.17 K/mm3 (0.00-0.031); Immature Granulocyte Percent A 0.9 % (0-0.5); Lymphocytes Absolute Auto 1.51 K/mm3 (0.9-3.2); Lymphocytes Percent Auto 7.9 % (18.3-44.2); Mean Corpuscular HGB Conc 30.9 g/dl (32-36); Mean Corpuscular Hemoglobin 27.4 pg (26-34); Mean Corpuscular Volume 88.9 fl (80-100); Mean Platelet Volume 10.3 fl (7.4-10.4); Monocytes Absolute Auto 1.9 K/mm3 (0.1-0.6); Monocytes Percent Auto 10.1 % (2.6-8.5); Neutrophils Absolute Auto 15.3 K/mm3 (1.3-6.7); Neutrophils Percent Auto 80.4 % (45.5-73.1); Platelet Count Result 251 k/mm3 (150-375); Red Blood Count 4.23 M/mm3 (4.6-6.20); Red Cell Distribution Width 18.3 % (11.5-14.5); White Blood Count 19.1 K/mm3 (4.5-10.0)
[2022-01-26 17:49] LABS: INR 1.3; Partial Thromboplastin Time 38.1 SECONDS (22.3-36.8); Prothrombin Time 15.3 Seconds (11.1-14.7)
--- NOTE | 2022-01-26 18:02 | PC.NURSE ---
attempted to take out the pt old Lizama to place a new one but the balloon was not deflating on the he old Lizama so it was left in, instructed by the RN
[2022-01-26] MEDS: SODIUM CHLORIDE 0.9% IV 500 ML 999 ML IV CONT (18:05)
[2022-01-26 18:06] LABS: Appearance Urine Slightly Cloudy (Clear); Bilirubin Urine Negative (Negative); Blood Urine 2+ (Negative); Color Urine Yellow (Yellow); Glucose Urine UA Negative (Negative); Ketones Urine Negative (Negative); Leukocyte Esterase Ur 2+ LEU/UL (Negative); Nitrate Urine Positive (Negative); Protein Urine 2+ mg/dL (Negative); Urobilinogen Urine 0.2 mg/dL (<2.0)
[2022-01-26 18:12] LABS: Bacteria Urine 1+ /hpf; Mucus Urine Rare /lpf; RBC Urine 21-50 /hpf (0-2); WBC Urine >75 /hpf
[2022-01-26 18:14] LABS: Add Urine Microscopic? YES
[2022-01-26 18:21] LABS: Lactic Acid Reflex 2.4 mmol/L (0.7-2.0)
[2022-01-26 18:26] LABS: Alanine Aminotransferase 20 U/L (6-50); Alkaline Phosphatase 105 U/L (38-126); Anion Gap 12 mmol/L (8-16); Aspartate Amino Transferase 25 U/L (17-59); Bilirubin,Total 0.5 mg/dL (0.2-1.3); Blood Urea Nitrogen 39 mg/dL (9-20); Calcium 9.2 mg/dL (8.4-10.2); Carbon Dioxide 23 mmol/L (22-30); Chloride 99 mmol/L (98-107); Estimated CRCL calculation 44 ml/min; Estimated Glomerular Filt Rate > 60; Glucose 187 mg/dL (65-110); Potassium 4.6 mmol/L (3.4-5.0); Sodium 134 mmol/L (137-145)
[2022-01-26] MEDS: ONDANSETRON INJ 4 MG/2 ML VIAL (18:41)
[2022-01-26 18:44] LABS: CRP 22.4 mg/dL (<1.0)
[2022-01-26] MEDS: SODIUM CHLORIDE 0.9% IV 1,000 ML 999 ML IV CONT ×2 (18:46→20:26)
[2022-01-26] MEDS: dilTIAZem HCl INJ 25 MG/5 ML VIAL 10 MG IV PUSH (18:55)
[2022-01-26 18:57] LABS: SARS-CoV-2 RNA PCR Negative
[2022-01-26] MEDS: PIPERACILLIN/TAZOBACTAM SOD 4.5 GM in SODIUM CHLORIDE 0.9% IV 100 ML 200 ML IVPB (19:06)
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
[2022-01-26 21:02] LABS: Reflex Lactic Acid Yes or No Add Lactic
[2022-01-26 21:04] LABS: Lactic Acid Reflex 1.2 mmol/L (0.7-2.0)
--- NOTE | 2022-01-26 22:06 | ADMGEN ---
This patient, Geraldo Paniagua, was admitted to IMU Room 232-01 on 01/26/22 at 2115. Patient/family oriented to hospital policies and general routines including ID bracelet, bed and alarms, visiting hours, pain management, procedures, bathroom and other care routines, personal items, smoking policy, room service/diet, and visiting hours. Information on how to activate the Rapid Response Team has been discussed. Patient/Family are encouraged to report perceived risks to care and to ask questions if they do not understand what they are told or what they should do.
[2022-01-26] MEDS: dilTIAZem 100 MG/100 ML 100 MG/100 ML BAG IV CONT (23:37)
[2022-01-27] VITALS (21 sets, daily range): BP systolic 87–153; BP diastolic 41–93; PULSE 67–144; RESP 20–50; TEMP 36.7–39.3; O2SAT 92–96; BMI 25.0
[2022-01-27] MEDS: dilTIAZem HCl INJ 25 MG/5 ML VIAL 20 MG IV PUSH (00:02)
[2022-01-27] MEDS: FUROSEMIDE INJ 40 MG/4 ML VIAL IV PUSH ×3 (00:40→16:46)
[2022-01-27] MEDS: TIMOLOL MALEATE 0.5% OP SOLN 5 ML BOTTLE 1 DROP EACH EYE ×3 (00:40→20:10)
[2022-01-27] MEDS: ACETAMINOPHEN 650 MG SUPPOSITORY RECTAL (01:07)
--- NOTE | 2022-01-27 01:20 | PC.NURSE ---
Pt arrived to floor in Afib RVR. Dr Harrell made aware. Diltiazem drip ordered at 5 mg. Once bag was tubed up from pharmacy, pt's HR was in the 170's to 180's. Dr Harrell called. Diltiazem increased to 10 mg with a 20 mg bolus. At midnight VS, pt's temp was 102, Respirations were 50, BP 159/54, HR 144. Pt is coughing and lung sounds are now coarse. Lasix IV and Tylenol suppository ordered.
[2022-01-27] MEDS: ACETAMINOPHEN ELIXIR 325 MG/10.15 ML UDC 1056 MG PO (02:39)
--- NOTE | 2022-01-27 06:26 | PC.NURSE ---
0223 Pt's temp was 102.7 when rechecked after Tylenol suppository. Dr Harrell made aware. Tylenol elixor was ordered and given. Temp checked an hour later: 99.2
[2022-01-27] MEDS: METOPROLOL TARTRATE 50 MG TAB 100 MG FEED TUBE ×2 (08:56→20:10)
[2022-01-27] MEDS: dilTIAZem 100 MG/100 ML 100 MG/100 ML BAG 10 MG IV CONT (09:08)
[2022-01-27] MEDS: LIDOCAINE HCL 1% LOCAL INJ 2 ML AMPUL 5 ML INFILTRATE (09:30)
--- NOTE | 2022-01-27 12:30 | PM.IMPN ---
Progress Note: A&P Assessment and Plan (1) Atrial fibrillation with rapid ventricular response: Code(s): I48.91 - Unspecified atrial fibrillation Status: Acute Assessment and Plan: Patient was on Cardizem drip however rates are well controlled. Will start on low-dose Eliquis. Get echocardiogram. Patient not on Eliquis prior so this is likely new. (2) Abdominal distension: Code(s): R14.0 - Abdominal distension (gaseous) Status: Acute Assessment and Plan: Abdomen appears soft currently. Possible colitis noted on CT scan. Patient was started IV Rocephin for UTI. After I spoke to the patient he said he has not have any worsening of his diarrhea or loose stools. He does have this occasional alprazolam prior to admission. Will hold off on any treatment currently. If GI symptoms worsen or and laboratory values were sent consider broadening antibiotics. (3) UTI (urinary tract infection): Code(s): N39.0 - Urinary tract infection, site not specified Status: Acute Assessment and Plan: IV Rocephin. Cultures pending (4) Elevated white blood cell count: Code(s): D72.829 - Elevated white blood cell count, unspecified Status: Acute Assessment and Plan: secondary UTI. (5) Dysphagia: Code(s): R13.10 - Dysphagia, unspecified Status: Acute (6) Feeding by G-tube: Code(s): Z93.1 - Gastrostomy status Status: Acute (7) BPH (benign prostatic hyperplasia): Code(s): N40.0 - Benign prostatic hyperplasia without lower urinary tract symptoms Status: Acute Assessment and Plan: Monitor Subjective Date/time seen: 01/27/22 12:30 the patient has no complaints With the exception of some mild lower abdominal cramping. Patient denies any worsening of his chronic loose stools or any worsening and diarrhea. Review of Systems Review of Systems: 10 point ROS negative except as stated in HPI / Subjective Objective Data Vital Signs Vital Signs: Vital Signs - 24 hr 01/26/22 17:07 01/26/22 19:09 01/26/22 20:18 Temperature 100.6 F H Pulse Rate 115 H 115 H 122 H Respiratory Rate 18 18 18 Blood Pressure 116/77 102/76 122/85 Pulse Oximetry 99 99 99 Oxygen Delivery Room Air 01/26/22 21:07 01/26/22 21:15 01/26/22 23:37 Temperature 98.6 F Pulse Rate 140 H 158 H Respiratory Rate 18 Blood Pressure 111/52 L Pulse Oximetry 93 Oxygen Delivery Room Air 01/26/22 23:45 01/27/22 00:00 01/27/22 00:00 Temperature 102 F H Pulse Rate 178 H 144 H Respiratory Rate 50 H Blood Pressure 153/93 H Pulse Oximetry 95 Oxygen Delivery Room Air 01/26/22 22:00 01/27/22 00:00 01/27/22 01:07 Temperature 102 F H Pulse Rate 135 H 122 H Respiratory Rate Blood Pressure Pulse Oximetry Oxygen Delivery 01/27/22 02:07 01/27/22 02:39 01/27/22 02:45 Temperature 102.7 F H 102.7 F H 102.7 F H Pulse Rate 133 H Respiratory Rate 22 H Blood Pressure 108/57 L Pulse Oximetry 95 Oxygen Delivery 01/27/22 02:00 01/27/22 04:00 01/27/22 06:00 Temperature Pulse Rate 124 H 98 97 Respiratory Rate Blood Pressure Pulse Oximetry Oxygen Delivery 01/27/22 04:00 01/27/22 03:39 01/27/22 08:00 Temperature 99.2 F 98.1 F Pulse Rate 94 Respiratory Rate 28 H Blood Pressure 113/61 Pulse Oximetry 94 Oxygen Delivery Room Air 01/27/22 08:56 01/27/22 10:38 01/27/22 12:01 Temperature Pulse Rate 96 67 76 Respiratory Rate Blood Pressure Pulse Oximetry Oxygen Delivery Intake/Output Intake/Output: Intake & Output 01/24/22 01/25/22 01/26/22 01/27/22 23:59 23:59 23:59 23:59 Intake Total 1665 50 Output Total 200 700 Balance 1465 -650 Meds/Results Medications: Active Medications Generic Name Dose Route Start Last Admin Trade Name Freq PRN Reason Stop Dose Admin Acetaminophen 1,056 mg 01/27/22 02:24 01/27/22 0
--- NOTE | 2022-01-27 12:36 | PHAR ---
PT'S HOME MED GABAPENTIN 250 MG/5 ML ORAL LIQUID VERIFIED BY PHARMACY
[2022-01-27] MEDS: CENTRAL LINE FLUSH 10 ML IV PUSH ×2 (13:06→20:12)
[2022-01-27 13:46] LABS: Anion Gap -4 mmol/L (8-16); Blood Urea Nitrogen 38 mg/dL (9-20); Calcium 8.4 mg/dL (8.4-10.2); Carbon Dioxide 36 mmol/L (22-30); Chloride 103 mmol/L (98-107); Estimated CRCL calculation 30 ml/min; Estimated Glomerular Filt Rate 45; Glucose 182 mg/dL (65-110); Potassium 4.4 mmol/L (3.4-5.0); Sodium 135 mmol/L (137-145)
[2022-01-27 14:03] LABS: Troponin I 0.057 ng/mL (0.000-0.034)
[2022-01-27 19:32] LABS: Troponin I 0.042 ng/mL (0.000-0.034)
[2022-01-27] MEDS: APIXABAN 5 MG TABLET PO (20:10)
[2022-01-27] MEDS: LORATADINE 10 MG TABLET FEED TUBE (20:10)
[2022-01-27] MEDS: LATANOPROST 0.005% OP SOLN 2.5 ML BTL 1 DROP EACH EYE (20:11)
[2022-01-28] VITALS (12 sets, daily range): BP systolic 97–122; BP diastolic 54–72; PULSE 76–135; RESP 16–22; TEMP 36.5–37.1; O2SAT 94–97
[2022-01-28] MEDS: METOPROLOL TARTRATE 50 MG TAB 100 MG FEED TUBE ×3 (04:26→20:14)
[2022-01-28 04:49] LABS: Hematocrit 32.6 % (42.0-52.0); Hemoglobin 9.9 g/dL (14.0-18.0); Mean Corpuscular HGB Conc 30.4 g/dl (32-36); Mean Corpuscular Hemoglobin 27.3 pg (26-34); Mean Corpuscular Volume 89.8 fl (80-100); Mean Platelet Volume 9.7 fl (7.4-10.4); Platelet Count Result 248 k/mm3 (150-375); Red Blood Count 3.63 M/mm3 (4.6-6.20); Red Cell Distribution Width 18.4 % (11.5-14.5); White Blood Count 13.7 K/mm3 (4.5-10.0)
[2022-01-28 05:01] LABS: Anion Gap 8 mmol/L (8-16); Blood Urea Nitrogen 40 mg/dL (9-20); Calcium 8.6 mg/dL (8.4-10.2); Carbon Dioxide 27 mmol/L (22-30); Chloride 103 mmol/L (98-107); Estimated CRCL calculation 32 ml/min; Estimated Glomerular Filt Rate 48; Glucose 155 mg/dL (65-110); Potassium 3.4 mmol/L (3.4-5.0); Sodium 138 mmol/L (137-145)
[2022-01-28] MEDS: CENTRAL LINE FLUSH 10 ML IV PUSH ×3 (06:17→20:15)
[2022-01-28] MEDS: APIXABAN 5 MG TABLET PO ×2 (08:54→20:14)
[2022-01-28] MEDS: TIMOLOL MALEATE 0.5% OP SOLN 5 ML BOTTLE 1 DROP EACH EYE ×2 (08:54→20:14)
[2022-01-28 11:03] LABS: Magnesium 2.2 mg/dL (1.6-2.3)
[2022-01-28] MEDS: POTASSIUM CHLORIDE 20 MEQ PACKET (FOR LIQUID) 40 MEQ PO (11:22)
[2022-01-28] MEDS: cefTRIAXone 2 GM in SODIUM CHLORIDE 0.9% IV 100 ML 200 ML IVPB (12:31)
[2022-01-28] MEDS: FUROSEMIDE INJ 40 MG/4 ML VIAL IV PUSH (16:41)
[2022-01-28] MEDS: traMADol HCL (*CRX) 50 MG TABLET PO (17:07)
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
[2022-01-28] MEDS: dilTIAZem HCL 30 MG TABLET PO (18:41)
[2022-01-28] MEDS: LORATADINE 10 MG TABLET FEED TUBE (20:14)
[2022-01-28] MEDS: LATANOPROST 0.005% OP SOLN 2.5 ML BTL 1 DROP EACH EYE (20:14)
[2022-01-28] MEDS: metroNIDAZOLE 500 MG/ISO 100ML 500 MG/100 ML BAG 100 MG IVPB (21:19)
[2022-01-29] VITALS (15 sets, daily range): BP systolic 95–116; BP diastolic 62–87; PULSE 88–128; RESP 16–24; TEMP 36.6–37.5; O2SAT 96–99
[2022-01-29] MEDS: dilTIAZem HCL 30 MG TABLET PO ×4 (00:38→18:08)
[2022-01-29] MEDS: metroNIDAZOLE 500 MG/ISO 100ML 500 MG/100 ML BAG 100 MG IVPB ×3 (05:52→23:00)
[2022-01-29] MEDS: CENTRAL LINE FLUSH 10 ML IV PUSH ×3 (05:53→23:00)
[2022-01-29 06:22] LABS: Hematocrit 32.9 % (42.0-52.0); Hemoglobin 10.1 g/dL (14.0-18.0); Mean Corpuscular HGB Conc 30.7 g/dl (32-36); Mean Corpuscular Hemoglobin 27.4 pg (26-34); Mean Corpuscular Volume 89.2 fl (80-100); Mean Platelet Volume 9.6 fl (7.4-10.4); Platelet Count Result 275 k/mm3 (150-375); Red Blood Count 3.69 M/mm3 (4.6-6.20); Red Cell Distribution Width 18.3 % (11.5-14.5); White Blood Count 9.3 K/mm3 (4.5-10.0)
[2022-01-29 06:35] LABS: Anion Gap 8 mmol/L (8-16); Blood Urea Nitrogen 46 mg/dL (9-20); Calcium 8.8 mg/dL (8.4-10.2); Carbon Dioxide 29 mmol/L (22-30); Chloride 107 mmol/L (98-107); Estimated CRCL calculation 37 ml/min; Estimated Glomerular Filt Rate 58; Glucose 225 mg/dL (65-110); Magnesium 2.1 mg/dL (1.6-2.3); Potassium 3.5 mmol/L (3.4-5.0); Sodium 144 mmol/L (137-145)
[2022-01-29] MEDS: METOPROLOL TARTRATE 50 MG TAB 100 MG FEED TUBE ×2 (09:47→20:50)
[2022-01-29] MEDS: APIXABAN 5 MG TABLET PO ×2 (09:48→20:50)
[2022-01-29] MEDS: TIMOLOL MALEATE 0.5% OP SOLN 5 ML BOTTLE 1 DROP EACH EYE ×2 (09:48→20:50)
[2022-01-29] MEDS: FUROSEMIDE INJ 40 MG/4 ML VIAL IV PUSH ×2 (09:48→18:07)
[2022-01-29] MEDS: cefTRIAXone 2 GM in SODIUM CHLORIDE 0.9% IV 100 ML 200 ML IVPB (13:20)
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
[2022-01-29] MEDS: LORATADINE 10 MG TABLET FEED TUBE (20:50)
[2022-01-29] MEDS: LATANOPROST 0.005% OP SOLN 2.5 ML BTL 1 DROP EACH EYE (20:50)
[2022-01-30] VITALS (18 sets, daily range): BP systolic 113–141; BP diastolic 64–88; PULSE 81–144; RESP 16–40; TEMP 36–37.7; O2SAT 90–97
[2022-01-30] MEDS: dilTIAZem HCL 30 MG TABLET PO ×4 (00:37→16:44)
[2022-01-30] MEDS: metroNIDAZOLE 500 MG/ISO 100ML 500 MG/100 ML BAG 100 MG IVPB ×3 (06:04→21:39)
[2022-01-30] MEDS: CENTRAL LINE FLUSH 10 ML IV PUSH ×3 (06:04→21:40)
[2022-01-30 06:18] LABS: Hematocrit 37.4 % (42.0-52.0); Hemoglobin 11.4 g/dL (14.0-18.0); Mean Corpuscular HGB Conc 30.5 g/dl (32-36); Mean Corpuscular Hemoglobin 27.1 pg (26-34); Mean Platelet Volume 9.6 fl (7.4-10.4); Platelet Count Result 339 k/mm3 (150-375); Red Cell Distribution Width 18.4 % (11.5-14.5); White Blood Count 11.4 K/mm3 (4.5-10.0)
[2022-01-30 06:27] LABS: Anion Gap 10 mmol/L (8-16); Blood Urea Nitrogen 49 mg/dL (9-20); Calcium 9.4 mg/dL (8.4-10.2); Carbon Dioxide 30 mmol/L (22-30); Chloride 107 mmol/L (98-107); Estimated CRCL calculation 31 ml/min; Estimated Glomerular Filt Rate 48; Glucose 187 mg/dL (65-110); Magnesium 2.2 mg/dL (1.6-2.3); Potassium 3.4 mmol/L (3.4-5.0); Sodium 147 mmol/L (137-145)
[2022-01-30] MEDS: METOPROLOL TARTRATE 50 MG TAB 100 MG FEED TUBE ×2 (08:03→21:37)
[2022-01-30] MEDS: APIXABAN 5 MG TABLET PO ×2 (08:03→21:38)
[2022-01-30] MEDS: TIMOLOL MALEATE 0.5% OP SOLN 5 ML BOTTLE 1 DROP EACH EYE ×2 (08:03→21:37)
[2022-01-30] MEDS: FUROSEMIDE INJ 40 MG/4 ML VIAL IV PUSH ×2 (08:03→16:43)
[2022-01-30] MEDS: POTASSIUM CHLORIDE 20 MEQ PACKET (FOR LIQUID) 40 MEQ PO (10:17)
[2022-01-30] MEDS: ACETAMINOPHEN ELIXIR 325 MG/10.15 ML UDC 650 MG PO (11:26)
[2022-01-30] MEDS: cefTRIAXone 2 GM in SODIUM CHLORIDE 0.9% IV 100 ML 200 ML IVPB (11:27)
[2022-01-30] MEDS: ALPRAZolam (*CRX) 0.5 MG TABLET PO (11:27)
--- NOTE | 2022-01-30 12:37 | PCNFU ---
Nutrition Follow-Up Complete: Swallowing Difficulties as related to Dysphagia as evidenced by home tube feedings Goal: Meet estimated nutritional needs Pt is making little progress towards goal. Continue with current goal at this time. Pt current nutrition is TF diet of Jevity 1.5 - held for intolerance Last recorded weight is 62 kg, down 0.5kg since last reported wt on 01/29/22. Recommend re-weighing prior to discharge Bowel Motility: LBM reported 01/26/22 Labs Reviewed: Hgb 11.4, Hct 37.4, Na 147, GFR 48, BUN 49, Cr 1.40, Glu 187 Meds Noted: Tylenol, Xanax, Eliquis, Cardizem, Lasix, Home Medication, Lopressor, Flagyl, Sodium Chloride Skin: Stage IV Sacrum Pressure Ulcer Additional Notes: Tube feeding of Jevity 1.5 was held due to intolerance. Pt had distended abdomen and hasn't had a BM since 01/26/22. Per nursing staff, cleared tube feeding to be restarted. Recommend restarting tube feeding of Jevity 1.5 at rate of 10mL/hr and advance by 10mL/hr every q 4 hours until a goal rate of 65mL/hr is met. Jevity 1.5 running at goal rate over 22 hours will provide 2145kcal, 91g of protein, and 1081mL of water. Pt is receiving dietary supplements of Abdelrahman BID w/free water flushes, providing an additional 80kcal and 2.5g of protein per packet. Pt is receiving free water flush of 50mL q 4 hours. Agree with diet orders at this time. Will continue to follow. Will montior every Wednesday and Wednesday.
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
[2022-01-30] MEDS: LATANOPROST 0.005% OP SOLN 2.5 ML BTL 1 DROP EACH EYE (21:37)
[2022-01-30] MEDS: LORATADINE 10 MG TABLET FEED TUBE (21:38)
[2022-01-31] VITALS (22 sets, daily range): BP systolic 120–148; BP diastolic 65–90; PULSE 77–144; RESP 20–36; TEMP 36.4–38.4; O2SAT 86–98
[2022-01-31] MEDS: dilTIAZem HCL 30 MG TABLET PO ×5 (00:48→18:04)
[2022-01-31] MEDS: metroNIDAZOLE 500 MG/ISO 100ML 500 MG/100 ML BAG 100 MG IVPB ×3 (05:14→21:29)
[2022-01-31] MEDS: CENTRAL LINE FLUSH 10 ML IV PUSH ×3 (05:15→21:26)
[2022-01-31 05:33] LABS: Hematocrit 38.1 % (42.0-52.0); Hemoglobin 11.2 g/dL (14.0-18.0); Mean Corpuscular HGB Conc 29.4 g/dl (32-36); Mean Corpuscular Hemoglobin 26.9 pg (26-34); Mean Corpuscular Volume 91.4 fl (80-100); Mean Platelet Volume 9.7 fl (7.4-10.4); Platelet Count Result 382 k/mm3 (150-375); Red Blood Count 4.17 M/mm3 (4.6-6.20); Red Cell Distribution Width 18.3 % (11.5-14.5); White Blood Count 13.8 K/mm3 (4.5-10.0)
[2022-01-31 05:44] LABS: Anion Gap 12 mmol/L (8-16); Blood Urea Nitrogen 73 mg/dL (9-20); Calcium 9.5 mg/dL (8.4-10.2); Carbon Dioxide 31 mmol/L (22-30); Chloride 110 mmol/L (98-107); Estimated CRCL calculation 27 ml/min; Estimated Glomerular Filt Rate 41; Glucose 235 mg/dL (65-110); Magnesium 2.3 mg/dL (1.6-2.3); Potassium 3.5 mmol/L (3.4-5.0); Sodium 153 mmol/L (137-145)
[2022-01-31] MEDS: TIMOLOL MALEATE 0.5% OP SOLN 5 ML BOTTLE 1 DROP EACH EYE ×2 (08:56→21:24)
[2022-01-31] MEDS: METOPROLOL TARTRATE 50 MG TAB 100 MG FEED TUBE ×3 (08:57→21:25)
[2022-01-31] MEDS: FUROSEMIDE INJ 40 MG/4 ML VIAL IV PUSH (08:58)
[2022-01-31] MEDS: APIXABAN 5 MG TABLET PO ×2 (08:58→21:23)
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
[2022-01-31] MEDS: cefTRIAXone 2 GM in SODIUM CHLORIDE 0.9% IV 100 ML 200 ML IVPB (11:46)
[2022-01-31] MEDS: DEXTROSE 5% 1,000 ML 1,000 ML 50 ML IV CONT (17:02)
[2022-01-31] MEDS: ACETAMINOPHEN ELIXIR 325 MG/10.15 ML UDC 650 MG PO (17:03)
[2022-01-31] MEDS: DEXTROSE 5% 1,000 ML 1,000 ML 999 ML IV CONT (18:26)
[2022-01-31 18:48] LABS: Glucose Point of Care > 500 mg/dl (65-105)
[2022-01-31 20:10] LABS: Glucose Point of Care 416 mg/dl (65-105)
[2022-01-31] MEDS: INSULIN HUMAN REGULAR (*BKC) 100 UNITS/ML 10 UNITS IV PUSH (21:22)
[2022-01-31] MEDS: LORATADINE 10 MG TABLET FEED TUBE (21:24)
[2022-01-31] MEDS: LATANOPROST 0.005% OP SOLN 2.5 ML BTL 1 DROP EACH EYE (21:24)
[2022-01-31 23:13] LABS: Glucose Point of Care 395 mg/dl (65-105)
[2022-02-01] VITALS (20 sets, daily range): BP systolic 97–143; BP diastolic 52–77; PULSE 88–130; RESP 24–48; TEMP 36.2–38.2; O2SAT 96–100
[2022-02-01] MEDS: dilTIAZem HCL 30 MG TABLET PO ×3 (00:04→12:55)
[2022-02-01] MEDS: INSULIN ASPART (*BKC) 100 UNITS/ML SUB-Q ×2 (00:04→12:54)
[2022-02-01] MEDS: DEXTROSE 5% 1,000 ML 1,000 ML 80 ML IV CONT (01:59)
[2022-02-01 05:04] LABS: Hematocrit 30.6 % (42.0-52.0); Hemoglobin 9.6 g/dL (14.0-18.0); Mean Corpuscular HGB Conc 31.4 g/dl (32-36); Mean Corpuscular Volume 92.4 fl (80-100); Mean Platelet Volume 10.3 fl (7.4-10.4); Platelet Count Result 441 k/mm3 (150-375); Red Blood Count 3.31 M/mm3 (4.6-6.20); Red Cell Distribution Width 18.2 % (11.5-14.5)
[2022-02-01 05:22] LABS: Anion Gap 11 mmol/L (8-16); Blood Urea Nitrogen 88 mg/dL (9-20); Calcium 8.8 mg/dL (8.4-10.2); Carbon Dioxide 29 mmol/L (22-30); Chloride 108 mmol/L (98-107); Estimated CRCL calculation 26 ml/min; Estimated Glomerular Filt Rate 39; Glucose 497 mg/dL (65-110); Potassium 3.7 mmol/L (3.4-5.0); Sodium 148 mmol/L (137-145)
[2022-02-01] MEDS: INSULIN ASPART (*BKC) 100 UNITS/ML 10 UNITS SUB-Q (05:56)
[2022-02-01] MEDS: METOPROLOL TARTRATE 50 MG TAB 100 MG FEED TUBE ×2 (05:56→21:46)
[2022-02-01] MEDS: metroNIDAZOLE 500 MG/ISO 100ML 500 MG/100 ML BAG 100 MG IVPB ×3 (05:57→21:46)
[2022-02-01] MEDS: CENTRAL LINE FLUSH 10 ML IV PUSH ×3 (05:58→21:47)
[2022-02-01 06:09] LABS: Hemoglobin A1C 6.3 % (<5.7)
[2022-02-01] MEDS: SODIUM CHLORIDE 0.45% 1,000 ML 80 ML IV CONT ×2 (10:00→14:44)
[2022-02-01] MEDS: TIMOLOL MALEATE 0.5% OP SOLN 5 ML BOTTLE 1 DROP EACH EYE ×2 (10:02→21:46)
[2022-02-01] MEDS: APIXABAN 5 MG TABLET PO (10:03)
[2022-02-01 12:06] LABS: Glucose Point of Care 430 mg/dl (65-105)
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
[2022-02-01] MEDS: cefTRIAXone 2 GM in SODIUM CHLORIDE 0.9% IV 100 ML 200 ML IVPB (12:55)
[2022-02-01 13:52] LABS: Glucose Point of Care 390 mg/dl (65-105)
--- NOTE | 2022-02-01 16:46 | PC.NURSE ---
at 1400 patient become mottled on legs, abdomen and chest. Pulse are all palpable and strong. Vitals signs documented. Dr. Rosales called and at the bedside. Verbal orders for 1L bolus now. Dr. bray called and updated and telephone orders to discontinue diltiazem PO. Will continue to monitor per unit protocol.
[2022-02-01 18:02] LABS: Glucose Point of Care 411 mg/dl (65-105)
[2022-02-01] MEDS: INSULIN GLARGINE (*BKC) 100 UNITS/ML 15 UNITS SUB-Q (18:58)
[2022-02-01] MEDS: LATANOPROST 0.005% OP SOLN 2.5 ML BTL 1 DROP EACH EYE (21:46)
[2022-02-01] MEDS: LORATADINE 10 MG TABLET FEED TUBE (21:46)
[2022-02-01] MEDS: APIXABAN 2.5 MG TABLET PO (21:46)
[2022-02-01 23:06] LABS: Glucose Point of Care 360 mg/dl (65-105)
[2022-02-02] VITALS (16 sets, daily range): BP systolic 106–133; BP diastolic 57–74; PULSE 79–138; RESP 45–60; TEMP 36.2–38.6; O2SAT 100
[2022-02-02] MEDS: INSULIN ASPART (*BKC) 100 UNITS/ML SUB-Q ×3 (00:17→13:28)
--- NOTE | 2022-02-02 00:34 | PC.NURSE ---
02/01/22 at 2330......Patient continues to have mottling to arms and legs, resp rate in the 40s, blood pressure 115/61, afebrile, opens eyes to pain. Reva Paniagua (daughter) notified regarding patient's condition and to discuss code status. Patient is currently No CPR status. Reva will call her mother and call me back.
--- NOTE | 2022-02-02 00:37 | PC.NURSE ---
02/01/22 at 2345....Reva Paniagua called back and said the family has decided on a DNR status for the patient. Scott Acharya RN notified. He will discuss the patient with Dr. Man. DNR entered as an order with Lamar MELVIN as a witness.
[2022-02-02 05:31] LABS: Glucose Point of Care 355 mg/dl (65-105)
[2022-02-02] MEDS: metroNIDAZOLE 500 MG/ISO 100ML 500 MG/100 ML BAG 100 MG IVPB ×2 (05:32→13:27)
[2022-02-02] MEDS: METOPROLOL TARTRATE 50 MG TAB 100 MG FEED TUBE ×2 (05:32→13:28)
[2022-02-02 05:33] LABS: Hematocrit 23.5 % (42.0-52.0); Hemoglobin 7.8 g/dL (14.0-18.0); Mean Corpuscular HGB Conc 33.2 g/dl (32-36); Mean Corpuscular Hemoglobin 32.2 pg (26-34); Mean Corpuscular Volume 97.1 fl (80-100); Mean Platelet Volume 10.7 fl (7.4-10.4); Platelet Count Result 431 k/mm3 (150-375); Red Blood Count 2.42 M/mm3 (4.6-6.20); Red Cell Distribution Width 18.1 % (11.5-14.5); White Blood Count 32.8 K/mm3 (4.5-10.0)
[2022-02-02] MEDS: CENTRAL LINE FLUSH 10 ML IV PUSH ×2 (05:34→13:35)
[2022-02-02] MEDS: ALPRAZolam (*CRX) 0.5 MG TABLET PO (05:38)
[2022-02-02] MEDS: traMADol HCL (*CRX) 50 MG TABLET PO (05:38)
[2022-02-02 05:44] LABS: Alanine Aminotransferase 23 U/L (6-50); Albumin Level 3.3 g/dL (3.5-5.1); Alkaline Phosphatase 112 U/L (38-126); Anion Gap 11 mmol/L (8-16); Aspartate Amino Transferase 145 U/L (17-59); Bilirubin,Total 1.1 mg/dL (0.2-1.3); Blood Urea Nitrogen 101 mg/dL (9-20); Calcium 7.6 mg/dL (8.4-10.2); Carbon Dioxide 24 mmol/L (22-30); Chloride 112 mmol/L (98-107); Estimated CRCL calculation 25 ml/min; Estimated Glomerular Filt Rate 36; Glucose 363 mg/dL (65-110); Potassium 4.1 mmol/L (3.4-5.0); Sodium 147 mmol/L (137-145)
[2022-02-02] MEDS: SODIUM CHLORIDE 0.45% 1,000 ML 80 ML IV CONT (06:10)
[2022-02-02] MEDS: ACETAMINOPHEN ELIXIR 325 MG/10.15 ML UDC 650 MG PO (09:07)
--- NOTE | 2022-02-02 11:01 | PC.NURSE ---
Notified Dr. Rosales patient HGB is dropping. Did not give morning Eliquis. Hold Eliquis, add Protonix, Ordered [address] Rosales.
[2022-02-02] MEDS: levoFLOXacin 250 MG/D5W 50 ML 250 MG/50 ML BAG 50 MG IVPB (11:45)
[2022-02-02] MEDS: PANTOPRAZOLE SODIUM IV 40 MG VIAL IV PUSH (11:45)
[2022-02-02] MEDS: TIMOLOL MALEATE 0.5% OP SOLN 5 ML BOTTLE 1 DROP EACH EYE (11:47)
[2022-02-02 11:58] LABS: Glucose Point of Care 319 mg/dl (65-105)
[2022-02-02 13:39] LABS: IFOB Positive Control Positive; Immunochemical Fecal Occult Bl Positive (N)
[2022-02-02 14:20] LABS: Toxigenic C. Diff NEGATIVE (NEGATIVE)
--- NOTE | 2022-02-02 14:54 | WPDCNINT ---
Assessment and Plan Assessment and plan (1) Sepsis: Code(s): A41.9 - Sepsis, unspecified organism Status: Acute Assessment and Plan: secondary to UTI from E coli with E coli bacteremia his blood pressures been adequate at this time. He has received significant amount of IV fluids since admission but he has also been having diarrhea last couple days continue IV fluids NICOM evaluation on arrival to ICU continue current broad-spectrum antibiotics in the form of Zosyn vancomycin and Levaquin. Will discontinue Flagyl since C diff is negative CT scan does not suggest any abscess discontinue vancomycin change Levaquin and Zosyn to imipenem (2) Acute kidney injury: Code(s): N17.9 - Acute kidney failure, unspecified Status: Acute Assessment and Plan: no hydronephrosis seen on CT scan check CK level continue IV fluids monitor urine output electrolytes and creatinine (3) UTI (urinary tract infection): Code(s): N39.0 - Urinary tract infection, site not specified Status: Acute Assessment and Plan: see above (4) Anemia: Code(s): D64.9 - Anemia, unspecified Status: Acute Assessment and Plan: drop in hemoglobin could be hemodilution versus GI blood loss hemoccult is positive but stools were not obviously melanotic suction from PEG tube is also not bloody 1 unit PRBC transfusion is ordered continue serial hemoglobin monitoring IV PPI q.12 hours transfuse as needed check coag panel Eliquis was already discontinued by primary provider (5) GI bleed: Code(s): K92.2 - Gastrointestinal hemorrhage, unspecified Status: Acute Assessment and Plan: see above (6) Encephalopathy: Code(s): G93.40 - Encephalopathy, unspecified Status: Acute Assessment and Plan: likely toxic metabolic encephalopathy likely uremia also contributing check head CT DC Xanax check ammonia and ABG (7) Ileus: Code(s): K56.7 - Ileus, unspecified Status: Acute Assessment and Plan: belly is distended but not tender CT scan reviewed with Radiology and suggest ileus place PEG tube to low intermittent suction NPO for now (8) Hypertriglyceridemia: Code(s): E78.1 - Pure hyperglyceridemia Status: Acute Assessment and Plan: patient's blood draw shows milky supernatant? suggestive of hypertriglyceridemia transferred to ICU for insulin infusion triglyceride level has been sent and pending Check lipase (9) Elevated blood sugar: Code(s): R73.9 - Hyperglycemia, unspecified Status: Acute Assessment and Plan: start insulin infusion. Patient's family states the patient does not have history of diabetes but his sugars have been elevated. (10) Diarrhea: Code(s): R19.7 - Diarrhea, unspecified Status: Acute Assessment and Plan: C diff is negative. Be secondary to tube feeds he will be NPO at this time due to ileus suggested by CT scan distention of his abdomen CT scan does not show any significant colitis (11) Hypernatremia: Code(s): E87.0 - Hyperosmolality and hypernatremia Status: Acute Assessment and Plan: change IV fluids to D5 water along with insulin drip. Monitor electrolytes Additional Plan DVT prophylaxis - SCDs Stress ulcer prophylaxis - PPI Nutrition - NPO at this Code Status - patient is DNR DNI which I confirmed with patient's daughter and at bedside Total Critical Care Time - 45 minutes Due to a high probability of clinically significant, life threatening deterioration, the patient required my highest level of preparedness to intervene emergently and I personally spent this critical care time directly and personally managing the patient. This critical care time included obtaining a history; examining the patient; pulse oximetry; ordering and review of studies; arranging urgent treatment with developmen
--- NOTE | 2022-02-02 15:13 | PM.PNCARD ---
Progress Note: A&P Assessment and Plan (1) Atrial fibrillation with rapid ventricular response: Code(s): I48.91 - Unspecified atrial fibrillation Status: Acute Assessment and Plan: AFib is chronic, remains rapid. Diltiazem discontinued due to intermittent hypotension. Reduce metoprolol to 50 mg Q 8 hour may need to reduce further or hold if hypotensive. His heart rate is being driven by sepsis, fever. Hold systemic anticoagulation due to significant decline in hemoglobin of the past several days. No obvious evidence for bleeding yet remains a concern. Severe CT abdomen pelvis particularly given concerns for worsening sepsis. (2) Sepsis: Qualifiers: Sepsis acute organ dysfunction status: unspecified Sepsis type: sepsis due to unspecified organism Qualified Code(s): A41.9 - Sepsis, unspecified organism Code(s): A41.9 - Sepsis, unspecified organism Status: Acute Assessment and Plan: Patient is extremely ill. Very lengthy discussion held with the patient's daughter and at bedside regarding his critical illness multi organ system failure involving his kidneys, liver, respiratory status worsening anemia and marked increase in leukocytosis, and unresponsiveness despite broadening IV antibiotics. Cultures pending Patient remains intermittently febrile with worsening leukocytosis, lethargy/confusion, worsening renal function, and tachypnea He remains hemodynamically stable this time. Concerning white blood cell count continues to rise significantly with evidence of E coli in the urine and blood cultures from admission. Prognosis is very poor. Patient and daughter both verbalized understanding he is critically ill and may not survive. They expressed appreciation for the care he has received and the compassion we have shown him. Anticipation at any point we had a further hemodynamic collapse and or cardiac arrest. They reiterated they wanted to continue with medical therapy but also stated he did not wish for CPR/intubation or other aggressive invasive life-saving measures. They agreed to pressors if necessary. Would recommend Critical Care consultation, repeat CT chest abdomen pelvis. (3) Anemia: Code(s): D64.9 - Anemia, unspecified Status: Acute Assessment and Plan: Severe anemia with significant decline in H&H over the past several days. Follow H&H closely. Transfuse as needed. (4) Acute kidney injury: Code(s): N17.9 - Acute kidney failure, unspecified Status: Acute Assessment and Plan: Marked decline in renal function, severe BUN elevation in light of anemia concerning for acute blood loss. CT abdomen pelvis recommended. Patient high risk for intravascular volume depletion as he is not receiving nutritional support ongoing fever. Continue IV fluids, nutritional support as able. (5) UTI (urinary tract infection): Code(s): N39.0 - Urinary tract infection, site not specified Status: Acute Assessment and Plan: Per primary service. (6) Confusion: Code(s): R41.0 - Disorientation, unspecified Status: Acute Assessment and Plan: As above, secondary to sepsis most likely. Patient is now unresponsive Subjective Date/time seen: Date of service: 02/02/22 11:25 Follow-up for atrial fibrillation with rapid ventricular response Overnight patient became hypotensive improved with IV fluid support. Patient reported to have intermittent mottled lower extremities. Patient unresponsive this morning, tachypneic although BP stable on IV fluids. Heart rate 100s to 120 in AFib on telemetry. and daughter at bedside. White blood cell count continues to rise, hemoglobin declining patient has been persistently febrile throughout this morning. Review of Systems Review of Systems: All systems reviewed & are unremarkable except as noted in HPI and below ROS unobtainable: Yes unobtainable due to mental status Const
[2022-02-02 15:18] LABS: Triglycerides 1274 mg/dL (<150)
[2022-02-02 15:19] LABS: Alveolar/Arterial O2 Gradient 190.4 mmHg; Base Excess ABG -1.4 mEq/l (+/-2.0); Fractional Inspired Oxygen 50 %; HCO3 ABG 24.1 mEq/l (22.0-26.0); Oxygen Saturation ABG 98.1 % (95.0-100.0); PCO2 ABG 43.4 mmHg (35.0-45.0); PO2 ABG 117.3 mmHg (80.0-100.0); PO2 FiO2 Ratio Arterial Blood 2.35 %; pH ABG 7.362 (7.350-7.450)
[2022-02-02 15:22] LABS: Device VENTURI MASK; Modified Allen's Test Pass; Site Drawn RIGHT RADIAL
[2022-02-02 15:43] LABS: Glucose Point of Care 308 mg/dl (65-105)
[2022-02-02] MEDS: INSULIN HUMAN REGULAR (*BKC) 100 UNITS in SODIUM CHLORIDE 0.9% IV 99 ML IV CONT (16:23)
[2022-02-02] MEDS: DEXTROSE 5% 1,000 ML 1,000 ML 75 ML IV CONT (16:25)
[2022-02-02] MEDS: SODIUM CHLORIDE 0.9% IV 1,000 ML 999 ML IV CONT (17:02)
--- NOTE | 2022-02-02 17:40 | PC.NURSE ---
This patient, Geraldo Paniagua, was transferred to [ ICU 5 ] on 02/02/22 at 1531. Personal belongings sent with patient. Report given to [ Myself, I transferred with patient to ICU and continued care]. Appropriate documentation sent with patient.
--- NOTE | 2022-02-02 17:41 | PC.NURSE ---
This patient, Geraldo Paniagua, was received from [ IMU [id number] ] on 02/02/22 at 15:31. Patient/family oriented to unit policies and routines
[2022-02-02 18:32] LABS: Lactic Acid Reflex 3.1 mmol/L (0.7-2.0)
[2022-02-02 18:35] LABS: Hematocrit 18.2 % (42.0-52.0); Hemoglobin 6.2 g/dL (14.0-18.0)
[2022-02-02 18:41] LABS: Hemoglobin A1C 5.9 % (<5.7)
[2022-02-02] MEDS: ALBUMIN HUMAN 5% 25 GM/500 ML BTL IV CONT (18:42)
[2022-02-02 18:45] LABS: Appearance Urine Clear (Clear); Bilirubin Urine Negative (Negative); Blood Urine 1+ (Negative); Color Urine Yellow (Yellow); Glucose Urine UA Trace mg/dL (Negative); Ketones Urine Negative (Negative); Leukocyte Esterase Ur 1+ LEU/UL (NEGATIVE); Nitrate Urine Negative (Negative); Protein Urine 1+ mg/dL (Negative); Urobilinogen Urine 0.2 mg/dL (<2.0)
[2022-02-02 18:46] LABS: Ammonia 11 umol/L (9-30)
[2022-02-02 18:47] LABS: Creatine Kinase 125 U/L (55-170); Lipase 265 U/L (23-300)
[2022-02-02 18:48] LABS: INR 2.4; Prothrombin Time 25.1 Seconds (11.1-14.7)
[2022-02-02 18:49] LABS: Fibrinogen 380 mg/dl (215-510); Partial Thromboplastin Time 42.9 SECONDS (22.3-36.8)
[2022-02-02 18:54] LABS: Glucose Point of Care 290 mg/dl (65-105)
[2022-02-02 18:54] LABS: Amorphous Sediment Urine Few; Bacteria Urine Trace /hpf; Mucus Urine Rare /lpf; Squamous Epithelial Cell Urine Rare /hpf (Few)
[2022-02-02 18:55] LABS: Add Urine Microscopic? YES
[2022-02-02 18:57] LABS: Anion Gap 11 mmol/L (8-16); Blood Urea Nitrogen 115 mg/dL (9-20); Calcium 6.9 mg/dL (8.4-10.2); Carbon Dioxide 22 mmol/L (22-30); Chloride 115 mmol/L (98-107); Estimated CRCL calculation 23 ml/min; Estimated Glomerular Filt Rate 32; Glucose 277 mg/dL (65-110); Magnesium 2.2 mg/dL (1.6-2.3); Phosphorus 4.6 mg/dL (2.5-4.5); Potassium 3.5 mmol/L (3.4-5.0); Sodium 148 mmol/L (137-145)
[2022-02-02 19:25] LABS: Mean Corpuscular HGB Conc 34.6 g/dl (32-36); Mean Corpuscular Hemoglobin 32.8 pg (26-34); Mean Corpuscular Volume 94.8 fl (80-100); Platelet Count Result 341 k/mm3 (150-375); Red Blood Count 1.92 M/mm3 (4.6-6.20); Red Cell Distribution Width 17.3 % (11.5-14.5); White Blood Count 28.6 K/mm3 (4.5-10.0)
[2022-02-02 19:30] LABS: Hematocrit 18.2 % (42.0-52.0); Hemoglobin 6.3 g/dL (14.0-18.0)
--- NOTE | 2022-02-02 19:56 | PC.NURSE ---
Patient suddenly with daughter at bedside. Dr Salinas notified.
[2022-02-02 21:16] LABS: Reflex Lactic Acid Yes or No Add Lactic
[2022-02-02 21:41] LABS: Glucose Point of Care 291 mg/dl (65-105)
--- NOTE | 2022-02-23 10:36 | PM.DDS ---
Discharge Summary Date and Time Date of : 02/02/22 Time of : 19:45 Provider Pronounced By: [email or web address] torres Probable Cause of Probable Cause of : Cardiac arrest Summary Hospital Course: Patient was admitted for treatment,patient was made DNR. Patient did not get better and . Additional Data Confirmation of as documented by pronouncing clinician: Pupillary Reflex, Palpable Pulses, Response to Stimuli, Heart Tones and Breath Sounds Name of Provider Notified: dr gates Time Provider Notified: 19:50 Provider Requests Autopsy: No Family Requests Autopsy: No Principal Mechanical Engineer Notified: Yes Date [facility] Notified of : 02/02/22 Time [facility] Notified of : 21:35
== END 2022-02-02 19:45 | disposition expired | DRG 698 ==
LOC: ANHED 18:02 → ANHIMU 20:31 → ANH2MED 02-01 13:22 → ANHIMU 02-01 13:41 → ANHICU 02-02 15:30
PROVIDERS: Chiropractor; Family Medicine; Internal Medicine; Physician Assistant; Student in an Organized Health Care Education/Training Program; Admitting Provider Internal Medicine; Emergency Provider Emergency Medicine; PCP Internal Medicine; Visit Provider Internal Medicine
DX: T83.511A Infection and inflammatory reaction due to indwelling urethral catheter, initial encounter (principal); A41.51 Sepsis due to Escherichia coli [E. coli]; G82.50 Quadriplegia, unspecified; I48.20 Chronic atrial fibrillation, unspecified; N17.9 Acute kidney failure, unspecified; K92.2 Gastrointestinal hemorrhage, unspecified; G93.40 Encephalopathy, unspecified; K56.7 Ileus, unspecified; E87.1 Hypo-osmolality and hyponatremia; N39.0 Urinary tract infection, site not specified; E78.1 Pure hyperglyceridemia; R19.7 Diarrhea, unspecified; I46.9 Cardiac arrest, cause unspecified; Z20.822 Contact with and (suspected) exposure to COVID-19; S14.109S Unspecified injury at unspecified level of cervical spinal cord, sequela; S12.9XXS Fracture of neck, unspecified, sequela; W19.XXXS Unspecified fall, sequela; R13.10 Dysphagia, unspecified; N40.0 Benign prostatic hyperplasia without lower urinary tract symptoms; R73.9 Hyperglycemia, unspecified; D64.9 Anemia, unspecified; Z66 Do not resuscitate; Z74.01 Bed confinement status; Z79.899 Other long term (current) drug therapy; Z86.73 Personal history of transient ischemic attack (TIA), and cerebral infarction without residual deficits; Z87.891 Personal history of nicotine dependence; Z93.1 Gastrostomy status; Z98.1 Arthrodesis status
CPT/HCPCS: 36415; 36556; 36600; 70450; 71045; 71046; 71250; 74018; 74176; 80048; 80053; 81001; 81479; 82140; 82274; 82550; 82805; 82948; 83036; 83605; 83690; 83735; 84100; 84443; 84478; 84484; 85014; 85018; 85025; 85027; 85384; 85610; 85730; 86140; 86850; 86860; 86870; 86880; 86900; 86901; 86971; 87040; 87077; 87086; 87186; 87493; 93005; 96365; 96367; 96375; 99285; A9270; C1751; C9113; C9803; J0131; J0696; J0743; J1815; J1940; J1956; J2405; J2543; J3370; J7030; J7040; J7070; P9045; U0003; U0005